=== PATIENT | male | born 1940 | race Caucasian/White ===

== ENCOUNTER 2021-09-02 09:58 | Emergency (ER) | payer OTHER ==
--- OUTSIDE RECORDS SUMMARY | 2021-09-02 10:01 | XMS REPORT | Continuity of Care Document ---
:1950 Author Organization [facility] t Address [address] [place] [address] Care Team Providers Name Role Phone Amira Copeland PA-C Attending Clinician Payers Payer Name Policy Type Policy Number Effective Date Expiration Date S fred MEDICARE PART A [id number] 2010 00:00:00 [facility] [id number] 2005 [facility] 00:00:00 Problems This patient has no known problems. Allergies, Adverse Reactions, Alerts Allergy Allergy Status Severity Reaction(s) Onset Inactive Treating Comm ents Source Name Type Date Date Clinician NO KNOWN Drug Active [facility] ALLERGIE Class [facility] Medications This patient has no known medications. Procedures This patient has no known procedures. Encounters Start End Encounter Admission Attending Care Care Encounter Source Date/Time Date/Time Type Type Clinicians Facility Department ID 2021-04-16 2021-04-16 Emergency X [facility] ERT [id number] 03 [facility] 09:01:00 09:01:00 [facility] 2019-12-21 2019-12-21 Telephone MARTHA Copeland [id number] 00:00:00 00:00:00 Mamie Amira [facility] [id number] [facility] [id number] [facility] [id number] [facility] [address] Results This patient has no known results.
--- NOTE | 2021-09-02 11:12 | RAD REPORT ---
EXAM DESCRIPTION: CT - Head Brain Wo Cont - 09/02/2021 10:50 am CLINICAL HISTORY: Alteration of awareness/confusion COMPARISON: None TECHNIQUE: Computed axial tomography of the head was obtained. IV contrast was not requested. All CT scans are performed using dose optimization technique as appropriate and may include automated exposure control or mA/KV adjustment according to patient size. FINDINGS: Right frontal scalp swelling. An intracranial bleed is not seen . Prominence of the ventricles. No extra-axial fluid collection is noted. Mild to moderate low-density areas within periventricular, deep and subcortical white matter may be s econdary to ischemic changes secondary to small vessel disease. Fluid within the sinuses/ mastoids is not seen. IMPRESSION: Prominence of the ventricles may be related to atrophy. Normal pressure hydrocephalus ca n also have this appearance should be correlated clinically. .
--- NOTE | 2021-09-02 11:15 | RAD REPORT ---
EXAM DESCRIPTION: CT - Facial Bones W/ Mpr - 09/02/2021 10:50 am CLINICAL HISTORY: Facial injury status post fall. Facial pain COMPARISON: None TECHNIQUE: Computed axial tomography of the face was obtained. Coronal and sagittal reconstruction w as performed. All CT scans are performed using dose optimization technique as appropriate and may include automated exposure control or mA/KV adjustment according to patient size. FINDINGS: Right frontal scalp swelling A fracture is not seen. A TMJ dislocation is not noted. The globes are intact. Fluid within the sinuses is not seen. IMPRESSION: Negative for a facial fracture.
--- NOTE | 2021-09-02 11:58 | RAD REPORT ---
EXAM DESCRIPTION: RAD - Knee Right 2 View - 09/02/2021 10:57 am CLINICAL HISTORY: Left knee pain FINDINGS: No fracture or dislocation is seen. Limited two view series obtained. If patient continues have symptoms to suggest an occult fracture, ligamentous or meniscal injury MRI would be recommended
--- NOTE | 2021-09-02 11:59 | ER ---
Nurse's Notes [facility] Name: Eriberto Feliciano Jr Age: 81 yrs Sex: Male : 1940 Arrival Date: 09/02/2021 Time: 10:02 Bed 8 Private MD: Diagnosis: Forehead hematoma, closed head injury, knee abrasion right Presentation: 09/02 10:03 Chief complaint: Patient states: pt walking to return cart, tripped and fell. pt alert jh6 oriented x3. swelling and hematoma to rt temporal area and bottom of rt orbit. No bleeding noted to wounds. Pain to rt knee with small amount of abrasions. Coronavirus screen: Client denies travel out of the [place] in the last 14 days. At this time, the client does not indicate any symptoms associated with coronavirus-19. Ebola Screen: Patient negative for fever greater than or equal to 101.5 degrees Fahrenheit, and additional compatible Ebola Virus Disease symptoms No symptoms or risks identified at this time. Initial Sepsis Screen: Does the patient meet any 2 criteria? No. Patient's initial sepsis screen is negative. Does the patient have a suspected source of infection? No. Patient's initial sepsis screen is negative. Risk Assessment: Do you want to hurt yourself or someone else? Patient reports no desire to harm self or others. Onset of symptoms was September 02, 2021. 10:03 Method Of Arrival: EMS: [place] [facility] 10:03 Acuity: EMMANUELLE 2 [facility] Historical: - Allergies: 10:08 No Known Allergies; [facility] - PMHx: 10:08 Diabetes mellitus; [facility] - Immunization history:: Adult Immunizations up to date, Client reports having NOT received the Covid vaccine. - Social history:: Smoking status: Patient/guardian denies using tobacco, the patient reports quitting approximately 35 years ago. Screenin:10 Abuse screen: Denies threats or abuse. Nutritional screening: No deficits noted. [facility] Tuberculosis screening: No symptoms or risk factors identified. Fall Risk Secondary diagnosis (15 points) recent fall. Assessment: 10:08 Pain: Denies pain. Complains of pain in right knee Pain currently is 2 out of 10 on a [facility] pain scale. Quality of pain is described as burning. 11:20 Reassessment: Patient and/or family updated on plan of care and expected duration. Pain jh6 level reassessed. Patient is alert, oriented x 3, equal unlabored respirations, skin warm/dry/pink. Patient denies pain at this time. Patient states feeling better. 12:16 Reassessment: Patient appears in no apparent distress at this time. Patient and/or tw2 family updated on plan of care and expected duration. Pain level reassessed. Patient is alert, oriented x 3, equal unlabored respirations, skin warm/dry/pink. Vital Signs: 10:03 BP 180 / 108; Pulse 73; Resp 17; Temp 97.6(T); Pulse Ox 96% on R/A; Weight 72.57 kg; jh6 Height 5 ft. 11 in. (180.34 cm); Pain 3/10; 11:00 BP 163 / 79; Pulse 71; Resp 17; Pulse Ox 96% ; Pain 2/10; jh6 11:57 BP 180 / 77; Pulse 64; Resp 17; Pulse Ox 97% on R/A; tw2 10:03 Body Mass Index 22.32 (72.57 kg, 180.34 cm) [place] Coma Score: 10:20 Eye Response: spontaneous(4). Verbal Response: oriented(5). Motor Response: obeys [facility] commands(6). Total: 15. ED Course: 10:02 Patient arrived in ED. jh6 10:02 Bed in low position. Call light in reach. Side rails up X2. monitor and storage bin tender on. Pulse tw2 ox on. NIBP on. 10:04 Rigoberto Rivers MD is Attending Physician. sp3 10:07 Triage completed. jh6 10:07 No provider procedures requiring assistance completed. X-ray(s) taken. Inserted saline jh6 lock: 20 gauge in left antecubital area, using aseptic technique. iv started correctional officer captain by ems. 10:27 Simi Jaquez, DHARA is Primary Nurse. jh6 10:27 Knee Right 2 View XRAY Sent. jh6 10:27 CT Head Brain wo Cont Sent. jh6 10:33 Arm band placed on. tw2 10:50 Facial Bones W/ Mpr In Process Unspecified. EDMS 10:50 CT Head Brain wo Cont In Process Unspecified. EDMS 10:57 Knee Right 2 View XRAY In Process Unspecified. EDMS 12:16 IV discontinued, intact, bleeding controlled, No redness/swelling at site. Pressure tw2 dressing applied. Administered Medications: No medications were administered Outcome: 11:58 Discharge ordered by . sp3 12:16 Discharged to home via wheelchair. tw2 12:16 Condition: stable 12:16 Discharge instructions given to patient, Instructed on discharge instructions, follow up and referral plans. Demonstrated understanding of instructions, follow-up care. 12:16 Patient left the ED. tw2 Signatures: Dispatcher [employer] EDMS Balbina Licona RN RN tw2 Rigoberto Rivers MD MD sp3 Simi Jaquez RN RN jh6 Corrections: (The following items were deleted from the chart) 10:35 10:27 To radiology for Maxillofacial W/Wo+CT.RAD.VANI. jh6 ED
--- NOTE | 2021-09-02 11:59 | EDPHYS ---
Physician Documentation [facility] Name: Eriberto Feliciano Jr Age: 81 yrs Sex: Male : 1940 Arrival Date: 09/02/2021 Time: 10:02 Bed 8 Private MD: ED Physician Rigoberto Rivers HPI: 09/02 10:42 This 81 yrs old Male presents to ER via EMS with complaints of Head injury. sp3 10:47 81-year-old male with history of diabetes presents with a ground-level mechanical fall sp3 secondary to "slipping" in the parking lot while returning his car. Patient denies LOC but does have injury to the right forehead and lateral face. Patient also fell on his right knee and has abrasions there. Patient denies neck pain, chest pain, back pain, shortness of breath, nausea, vomiting, diarrhea, other extremity pain other than his right knee, any other ROS at this time. Patient is on no blood thinners.. Historical: - Allergies: 10:08 No Known Allergies; jh6 - PMHx: 10:08 Diabetes mellitus; [facility] - Immunization history:: Adult Immunizations up to date, Client reports having NOT received the Covid vaccine. - Social history:: Smoking status: Patient/guardian denies using tobacco, the patient reports quitting approximately 35 years ago. ROS: 10:48 Constitutional: Negative for fever, chills, and weight loss, Eyes: Negative for injury, sp3 pain, redness, and discharge, ENT: Negative for injury, pain, and discharge, Neck: Negative for injury, pain, and swelling, Cardiovascular: Negative for chest pain, palpitations, and edema, Respiratory: Negative for shortness of breath, cough, wheezing, and pleuritic chest pain, Back: Negative for injury and pain, MS/Extremity: Negative for injury and deformity, Skin: Negative for injury, rash, and discoloration, Neuro: Negative for headache, weakness, numbness, tingling, and seizure, Psych: Negative for depression, anxiety, suicide ideation, homicidal ideation, and hallucinations. 10:48 All other systems are negative. Exam: 10:50 Constitutional: This is a well developed, well nourished patient who is awake, alert, sp3 and in no acute distress. Eyes: Pupils equal round and reactive to light, extra-ocular motions intact. Lids and lashes normal. Conjunctiva and sclera are non-icteric and not injected. Cornea within normal limits. Periorbital areas with no swelling, redness, or edema. ENT: Nares patent. No nasal discharge, no septal abnormalities noted. External auditory canals are clear. Oropharynx with no redness, swelling, or masses, exudates, or evidence of obstruction, uvula midline. Mucous membranes moist. Neck: Trachea midline, no thyromegaly or masses palpated, and no cervical lymphadenopathy. Supple, full range of motion without nuchal rigidity, or vertebral point tenderness. No Meningismus. Chest/axilla: Normal chest wall appearance and motion. Nontender with no deformity. No lesions are appreciated. Cardiovascular: Regular rate and rhythm with a normal S1 and S2. No gallops, murmurs, or rubs. Normal PMI, no JVD. No pulse deficits. Respiratory: Lungs have equal breath sounds bilaterally, clear to auscultation and percussion. No rales, rhonchi or wheezes noted. No increased work of breathing, no retractions or nasal flaring. Abdomen/GI: Soft, non-tender, with normal bowel sounds. No distension or tympany. No guarding or rebound. No evidence of tenderness throughout. Back: No spinal tenderness. No costovertebral tenderness. Full range of motion. Skin: Warm, dry with normal turgor. Normal color with no rashes, no lesions, and no evidence of cellulitis. Neuro: Awake and alert, GCS 15, oriented to person, place, time, and situation. Cranial nerves II-XII grossly intact. Motor strength 5/5 in all extremities. Sensory grossly intact. Cerebellar exam normal. Normal gait. Psych: Awake, alert, with orientation to person, place and time. Behavior, mood, and affect are within normal limits. 10:50 Head/face: Patient has 2 cm x 2 cm hematoma with surface abrasion on the right tenriism area of his forehead as well as abrasions extending inferiorly next the lateral canthus of the right eye. Extraocular movements are intact, there is no eye hyphema, or surrounding injury within the orbit itself.. 10:50 Musculoskeletal/extremity: There is abrasion over the right patella and pain to the lateral joint. Full range of motion is present.. Vital Signs: 10:03 BP 180 / 108; Pulse 73; Resp 17; Temp 97.6(T); Pulse Ox 96% on R/A; Weight 72.57 kg; 6 Height 5 ft. 11 in. (180.34 cm); Pain 3/10; 11:00 BP 163 / 79; Pulse 71; Resp 17; Pulse Ox 96% ; Pain 2/10; jh6 11:57 BP 180 / 77; Pulse 64; Resp 17; Pulse Ox 97% on R/A; tw2 10:03 Body Mass Index 22.32 (72.57 kg, 180.34 cm) [facility] [place] Coma Score: 10:20 Eye Response: spontaneous(4). Verbal Response: oriented(5). Motor Response: obeys [facility] commands(6). Total: 15. MDM: 10:19 Patient medically screened. sp3 10:51 Data reviewed: vital signs, nurses notes. ED course: 81-year-old male with ground-level sp3 mechanical fall with head injury and right knee injury. Will obtain CT scans of the head and maxillofacial area as well as an x-ray of the right knee. Discharged home with negative with PCP follow-up.. 11:57 ED course: CT scan of the head and facial bones are negative as read by the sp3 radiologist. Knee x-ray is reviewed by me and demonstrates no fracture or effusion. Will discharge patient home at this time.. 12 10:19 Order name: CT Head Brain wo Cont; Complete Time: 11:55 sp3 09/02 10:19 Order name: Knee Right 2 View XRAY sp3 09/02 10:35 Order name: Facial Bones W/ Mpr; Complete Time: 11:55 EDMS Administered Medications: No medications were administered Disposition Summary: 09/02/21 11:58 Discharge Ordered Location: Home sp3 Condition: Stable sp3 Diagnosis - Forehead hematoma, closed head injury, knee abrasion right sp3 Followup: sp3 - With: Private Physician - When: - Reason: Recheck today's complaints Discharge Instructions: - Discharge Summary Sheet sp3 - Head Injury, Adult sp3 Forms: - Medication Reconciliation Form sp3 - Thank You Letter sp3 - Antibiotic Education sp3 - Prescription Opioid Use sp3 Signatures: Dispatcher [employer] EDMS Rigoberto Rivers MD MD sp3 Simi Jaquez RN RN jh6 Corrections: (The following items were deleted from the chart) 10:35 10:20 Maxillofacial W/Wo+CT.RAD.YONIZ ordered. EDMS EDMS
[2021-09-02 12:43] VITALS: TEMP 97.6
[2021-09-02 12:44] VITALS: BP 180/77; O2SAT 97
== END 2021-09-02 12:16 | disposition home or self-care (01) ==
LOC: EDBD 09:58 → ER 09:58
DX: S00.81XA Abrasion of other part of head, initial encounter (principal); S80.211A Abrasion, right knee, initial encounter; W01.0XXA Fall on same level from slipping, tripping and stumbling without subsequent striking against object, initial encounter; Y92.481 Parking lot as the place of occurrence of the external cause
CPT/HCPCS: 70450; 70486; 76377; 93005; 99284

== ENCOUNTER 2023-07-10 19:49 | Inpatient (IN) | payer OTHER ==
--- OUTSIDE RECORDS SUMMARY | 2023-07-10 19:54 | XMS REPORT | Continuity of Care Document ---
:[address] [facility] t Address [address] [facility] [facility] [address] [place] [address] Care Team Providers Name Role Phone None, None Primary Care Physician Unavailable THEODORA LYNN Attending Clinician Unavailable Cholo Holm MD Attending Clinician Lisha Rojo Attending Clinician CHOLO HOLM Attending Clinician Unavailable Mary Jo Michele RN Attending Clinician Unavailable BENTON ASHLEY Attending Clinician Unavailable Dontae Grimes MD Attending Clinician Benton Ashley MD Attending Clinician Jayce Vargas MD Attending Clinician Wm Boswell MD Attending Clinician Mamie Copeland PA-C Attending Clinician SHILA OCHOA Attending Clinician Unavailable JAYCE VARGAS Admitting Clinician Unavailable SHILA OCHOA Admitting Clinician Unavailable Payers Payer Name Policy Type Policy Number Effective Date Expiration Date S fred [facility] [id number] 2022 PLAN-CHRISTUS 00:00:00 [facility] UNIFORM [id number] 2005 SVCS 00:00:00 Problems Condition Condition Condition Status Onset Resolution Last Treating Co mments Source Name Details Category Date Date Treatment Clinician Date E46 E46 Disease Active Univers Unspecifie Unspecifie 8-23 it y of d severe d severe 00:00: [place] protein-ca protein-ca 00 Me dical tor tor Branch malnutriti malnutriti on on Dysphagia Dysphagia Disease Active Uni vers 8- ity of 00:00: Medical Branch Vomiting, Vomiting, Disease Active Uni vers unspecifie unspecifie 8-21 [place] y of d vomiting d [place] type, type, 00 Medical unspecifie unspecifie Br anch d whether d whether nausea nausea present present Esophageal Esophageal Disease Active U nivers mass mass 8- ity of 00:00: [place] 00 Medical Branch PAD PAD Disease Active [place] (periphera (periphera 6-23 He alth l artery l artery 00:00: disease) disease) 00 E44.1 Mild 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 2019-0 U singhers protein-ca protein-ca 1-06 it y of tor lentz 00:00: [place] malnutriti malnutriti 00 Me dical on on Branch Left-sided Left-sided Disease Active 2019-0 U silviano weakness weakness 1-05 ity of 00:00: [place] 00 Medical Branch 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 00:00: Hospita 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 without y without macular macular edema edema associated associated with type with type 2 diabetes 2 diabetes mellitus mellitus Microalbum Microalbum Disease Active 2015-09 M ethodi inuria inuria 2- st 00:00: Hospita 00 l CKD CKD Disease Active 2015-09 [facility] (chronic (chronic 2 kidney kidney 00:00: Hospita disease) disease) 00 l stage 3, stage 3, GFR 30-59 GFR 30-59 ml/min ml/min Type 2 Type 2 Disease Active Methodi diabetes diabetes 8-24 st mellitus mellitus 00:00: Hospit a without without 00 l complicati complicati on on Allergies, Adverse Reactions, Alerts Allergy Allergy Status Severity Reaction(s) Onset Inactive Treating Comm ents Source Name Type Date Date Clinician NO KNOWN Drug Active Univers ALLERGIE Class ity of S [facility] Family History Family Member Diagnosis Comments Start Date Stop Date Source Natural brother [facility] Natural father Hy[facility] Natural mother Emphysema [facility] Social History Social Habit Start Date Stop Date Quantity Comments Source History of tobacco Passive smoker Un iversity of use [facility] Gender identity [facility] Sexual orientation [facility] Tobacco use and 2023-05-16 2023-05-16 Smokeless Universit y of exposure 00:00:00 00:00:00 tobacco non-user [facility] History of Social 2017-03-14 2017-03-[address] function 00:00:00 00:00:00 Hospital Alcohol intake 2016-10-26 2016-10-26 Current [facility] 00:00:00 00:00:00 non-drinker of Hospital alcohol (finding) Cigarettes smoked 2016-05-19 2016-05-[address] current (pack per 00:00:00 00:00:00 Hospita l day) - Reported Cigarette 2016-05-19 2016-05-19 [facility] pack-years 00:00:00 00:00:00 Hospital Sex Ass[birth year] At [birth year] [facility] 00:00:00 00:00:00 Hospital Smoking Status Start Date Stop Date Source Ex-smoker 2023-05-16 00:00:00 2023-05-16 00:00:00 Universi ty [facility] Never smoked tobacco [facility] Health Medications Ordered Filled Start Stop Current Ordering Indication Dosage Frequency Signature Comments Components Source Medication Medication Date Date Medication? Clinician (SIG) Name Name magnesium 2022- No 2g 2 g, IV Univ ers sulfate in 05-19 Piggyback, it y of water 2 01:00: 02:25 Administer Mannie as gram/50 mL 00 :00 over 60 Medica l (4 %) Minutes, Branch infusion 2 ONCE, 1 g dose, On Tue05/18/23 at 2000, Routine ondansetron 2022- Yes [id number] 4mg Take 1 Univers 4 mg 05-19 tablet by ity of disintegrat 00:00: 04:59 [place] tablet 00 :00 every 8 Medica l (eight) Branch hours as needed for Nausea and Vomiting (N/V) for up to 10 days. ondansetron 3-0 2023- Yes [id number] 4mg Take 1 Univers 4 mg -19 06- tablet by ity of disintegrat 00:00: 04:59 [place] tablet 00 :00 every 8 Medica l (eight) Branch hours as needed for Nausea and Vomiting (N/V) for up to 10 days. ondansetron 3-0 2023- Yes [id number] 4mg Take 1 Univers 4 mg 05-19- tablet by ity of disintegrat 00:00: 04:59 [place] tablet 00 :00 every 8 Medica l (eight) Branch hours as needed for Nausea and Vomiting (N/V) for up to 10 days. ondansetron 2022-0 2022- Yes [id number] 4mg Take 1 Univers 4 mg 05-19- tablet by ity of disintegrat 00:00: 04:59 [place] tablet 00 :00 every 8 Medica l (eight) Branch hours as needed for Nausea and Vomiting (N/V) for up to 10 days. sitagliptin 2022-0 2022- No Take by Un diya crocker/metalecia 05-18 mouth. ity o f min HCl 16:41: 00:00 [place] (JANUMET 07 :00 Medical ORAL) Branch magnesium 2022-0 2022- No 4g 4 g, IV Univ ers sulfate in 05-18 Piggyback, it y of water 4 14:15: 15:45 at 25 [place] gram/50 mL 00 :00 mL/hr Medical (8 %) IV Administer Branc h Piggyback 4 over 120 g Minutes, ONCE, 1 dose, On Tue05/18/23 at 0915, Routine pantoprazol 2023-0 Yes 40mg 40 mg, Univ ers e 05-18 Slow IV ity of (PROTONIX) 13:00: Push, [place] injection 00 Q12H, Medical 40 mg First dose Branch on Tue05/18/23 at 0800, Until Discontinu ed pantoprazol 2023-0 Yes 40mg 40 mg, Univ ers e 05-18 Slow IV ity of (PROTONIX) 13:00: Push, [place] injection 00 Q12H, Medical 40 mg First dose Branch on Tue05/18/23 at 0800, Until Discontinu ed water for 2022- No PRN, Univers irrigation 05-17 Starting ity of irrigation 17:56: 19:39 on Tue [place] solution 00 :05 05/17/23 at Medic al 1256, Branch Until Tue05/17/23 at 1439, Routine, Intra-op simethicone 0 2022- No PRN, Unive rs (GAS RELIEF 05-17 Starting ity of (SIMETHICON 17:56: 19:39 on Tue Mannie as E)) 40 00 :05 05/17/23 at Medical mg/0.6 mL 1256, Branch drops Until Tue05/17/23 at 1439, Routine, Intra-op enoxaparin 2022-0 Yes 40mg 40 mg, Unive rs (LOVENOX) 05-17 Subcutaneo ity of injection 14:00: [place] 40 mg 00 First dose Medical on Tue Branch 05/17/23 at 0900, Until Discontinu ed, Routine enoxaparin 0 Yes 40mg 40 mg, Unive rs (LOVENOX) 05-17 Subcutaneo ity of injection 14:00: [place]ILY, [place] 40 mg 00 First dose Medical on Tue Branch 05/17/23 at 0900, Until Discontinu ed, Routine D5W 0.45% 0 Yes Intravenou Un diya NaCl 8- s, at 100 ity of (1/2NS) 1 L 03:45: mL/hr, [place] + KCL 20 00 CONTINUOUS Medic al mEq , Starting Branch on Tue05/16/23 at 2245, Until Discontinu ed, RAMON D5W 0.45% 0 Yes Intravenou Un diya NaCl 8- s, at 100 ity of (1/2NS) 1 L 03:45: mL/hr, [place] + KCL 20 00 CONTINUOUS Medic al mEq , Starting Branch on Tue05/16/23 at 2245, Until Discontinu ed, RAMON ondansetron 0 Yes 4mg 4 mg, Slow Univers (ZOFRAN 05-17 IV Push, ity of (PF)) 03:34: Q6HPRN, [place] injection 4 28 Starting Medi jennifer mg on Tue Branch 05/16/23 at 2234, Until Discontinu ed, Routine, Nausea and Vomiting (N/V) ondansetron 2022-0 Yes 4mg 4 mg, Slow Univers (ZOFRAN 05-17 IV Push, ity of (PF)) 03:34: Q6HPRN, [place] injection 4 28 Starting Medi jennifer mg on Tue Branch 05/16/23 at 2234, Until Discontinu ed, Routine, Nausea and Vomiting (N/V) acetaminoph 2022-0 Yes 650mg 650 mg, Un diya en 05-17 Oral, ity of (TYLENOL) 03:34: Q6HPRN, [place] tablet 650 07 Starting Medic al mg on Tue Branch 05/16/23 at 2234, Until Discontinu ed, Routine, Pain (scale 1-3), Temp > 38 C acetaminoph 2022-0 Yes 650mg 650 mg, Un diya en 05-17 Oral, ity of (TYLENOL) 03:34: Q6HPRN, [place] tablet 650 07 Starting Medic al mg on Tue Branch 05/16/23 at 2234, Until Discontinu ed, Routine, Pain (scale 1-3), Temp > 38 C NaCl 0.9% 2022- No 1000mL at 999 Uni vers (NS) bolus 05-17 mL/hr, ity of infusion 00:15: 00:48 1,000 mL, Mannie as 1,000 mL 00 :00 IV Medical Infusion, Branch ONCE, 1 dose, On Tue05/16/23 at 1915, RAMON sitagliptin 2022- No Take by Un diya phos/metfor 05-16 mouth. ity o f min HCl 23:14: 00:00 [place] (JANUMET 51 :00 Medical ORAL) Branch amLODIPine 2022- No [id number] 10mg Take 1 Univers 10 mg 10-03 4100 tablet by ity of tablet 00:00: 00:00 mouth [place] 00 :00 daily. Medical Branch aspirin 81 2022- No [id number] 81mg Take 1 Univers mg chewable 10-03 4100 tablet by it y of tablet 00:00: 00:00 mouth [place] 00 :00 daily. Medical Branch atorvastati 2022- No [id number] 80mg Take 1 Univers n 80 mg 10-03 4100 tablet by ity of tablet 00:00: 00:00 mouth at [place] 00 :00 bedtime. Medical Branch amLODIPine 2022- No [id number] 10mg Take 1 Univers 10 mg 10-03 4100 tablet by ity of tablet 00:00: 00:00 mouth [place] 00 :00 daily. Medical Branch aspirin 81 2022- No [id number] 81mg Take 1 Univers mg chewable 10-03 4100 tablet by it y of tablet 00:00: 00:00 mouth [place] 00 :00 daily. Medical Branch atorvastati 2022- No [id number] 80mg Take 1 Univers n 80 mg 10-03 4100 tablet by ity of tablet 00:00: 00:00 mouth at [place] 00 :00 bedtime. Medical Branch sitaGLIPtin Yes 1{tbl} Q.5D Take 1 Me thodi -metformin 3-[address] () 00:00: mouth 2 Hospi ta 50-500 mg 00 (two) l per tablet times a day with meals. Immunizations Ordered Filled Date Status Comments Source Immunization Name Immunization Name Influenza High Dose 2019-10-03 Completed Unive rsity of 00:00:00 [facility] Influenza High Dose 2019-10-03 Completed Unive rsity of 00:00:00 [facility] Influenza High Dose 2019-10-03 Completed Unive rsity of 00:00:00 [facility] Influenza High Dose 2019-10-03 Completed Unive rsity of 00:00:00 [facility] Influenza High Dose 2019-10-03 Completed Unive rsity of 00:00:00 [facility] Influenza High Dose Unknown Completed Unive rsity of [facility] Influenza High Dose Unknown Completed Unive rsity of [facility] Influenza High Dose Unknown Completed Unive rsity of [facility] Influenza High Dose Unknown Completed Unive rsity of [facility] Pneumococcal Unknown Completed [facility] Conjugate [facility] promise Vital Signs Vital Name Observation Time Observation Value Comments Source Systolic blood 2023-05-26 17:10:00 108 mm[Hg] Univer sity of pressure [place] [facility] Diastolic blood 2023-05-26 17:10:00 66 mm[Hg] Unive rsity of pressure [place] [facility] Heart rate 2023-05-26 17:10:00 76 /min Universi ty of [place] [facility] Body temperature 2023-05-26 17:10:00 36.61 Meryl Univ ersity of [place] [facility] Respiratory rate 2023-05-26 17:10:00 18 /min Univ ersity of [place] [facility] Body height 2023-05-26 17:10:00 180.3 cm Universi ty [facility] [place] [facility] Body weight 2023-05-26 17:10:00 55.43 kg Universi ty of [place] [facility] BMI 2023-05-26 17:10:00 17.04 kg/m2 Universi ty of [place] [facility] Oxygen saturation in 2023-05-26 17:10:00 96 /min University of Arterial blood by [facility] Pulse oximetry Branch Systolic blood 2023-05-19 12:22:00 130 mm[Hg] Univer sity of pressure [place] [facility] Diastolic blood 2023-05-19 12:22:00 76 mm[Hg] Unive rsity of pressure [place] [facility] Heart rate 2023-05-19 12:22:00 62 /min Universi ty of [place] [facility] Body temperature 2023-05-19 12:22:00 36.11 Meryl Univ ersity of [place] [facility] Respiratory rate 2023-05-19 12:22:00 16 /min Univ ersity of [place] [facility] Oxygen saturation in 2023-05-19 12:22:00 96 /min University of Arterial blood by [facility] Pulse oximetry Branch Body weight 2023-05-19 08:48:00 58.968 kg Universi ty of [place] [facility] BMI 2023-05-19 08:48:00 18.13 kg/m2 [facility]i ty [facility] [place] [facility] Body height 2023-05-17 04:17:00 180.3 cm [facility]i ty [facility] [place] [facility] Systolic blood 2023-05-17 19:16:00 154 mm[Hg] Univer sity of pressure [place] [facility] Diastolic blood 2023-05-17 19:16:00 58 mm[Hg] Unive rsity of pressure [place] [facility] Respiratory rate 2023-05-17 19:16:00 23 /min [facility] Oxygen saturation in 2023-05-17 19:16:00 99 /min [facility] Arterial blood by [facility] Pulse oximetry [place] Heart rate 2023-05-17 19:10:00 54 /min [facility] Body temperature 2023-05-17 16:17:00 36.67 Meryl [facility] Body height 2023-05-17 04:17:00 180.3 cm [facility] Body weight 2023-05-17 04:17:00 54.477 kg [facility] BMI 2023-05-17 04:17:00 17.82 kg/m2 [facility] Procedures Procedure Date / Time Performing Source Performed Clinician POCT GLUCOSE (AUTOMATED) 2023-05-19 [facility] PHOSPHORUS 2023-05-19 [facility] 10:41:00 [facility] MAGNESIUM 2023-05-19 Ciro [facility] 10:41:00 [facility] BASIC METABOLIC PANEL (NA, K, CL, 2023-05-19 Ciro [facility] of CO2, GLUCOSE, BUN, CREATININE, CA) 10:41:00 [facility] PHOSPHORUS 2023-05-18 [facility] 11:35:00 [facility] MAGNESIUM 2023-05-18 [facility] 11:35:00 [facility] BASIC METABOLIC PANEL (NA, K, CL, 2023-05-18 Ciro [facility] of CO2, GLUCOSE, BUN, CREATININE, CA) 11:35:00 [facility] PHOSPHORUS 2023-05-18 [facility] of 11:35:00 [facility] MAGNESIUM 2023-05-18 [facility] 11:35:00 [facility] BASIC METABOLIC PANEL (NA, K, CL, 2023-05-18 Ciro [facility] of CO2, GLUCOSE, BUN, CREATININE, CA) 11:35:00 [facility] C-REACTIVE PROTEIN 2023-05-18 [facility] of 08:28:00 [facility] CBC WITH DIFF 2023-05-18 Marlene Tanner [place] of 08:28:00 [facility] CBC WITH DIFF 2023-05-18 Ciro [facility] of 08:28:00 [facility] CT THORAX WO CONTRAST 2023-05-18 [facility] of 01:10:[address] [facility] [address] THORAX WO CONTRAST 2023-05-18 [facility] of 01:10:00 [facility] ESOPHAGOGASTRODUODENOSCOPY 2023-05-17 Rani [facility] rsity of 18:02:00 [facility] ESOPHAGOGASTRODUODENOSCOPY 2023-05-17 [facility] rsity of 18:02:00 [facility] EGD (ENDO) 2023-05-17 [facility] of 17:44:36 [facility] EGD (ENDO) 2023-05-17 [facility] of 17:44:36 Ciro [facility] URINALYSIS 2023-05-17 Dontae Grimes of 02:31:00 [facility] URINALYSIS 2023-05-17 Dontae Grimes [place] of 02:31:[address] [facility] [address] ABDOMEN PELVIS WO CONTRAST 2023-05-17 Dontae Grimes iversity of 01:11:[address] [facility] [address] ABDOMEN PELVIS WO CONTRAST 2023-05-17 Dontae Grimes iversity of 01:11:40 [facility] XR CHEST 1 VW 2023-05-17 Dontae Grimes of 01:05:10 [facility] XR CHEST 1 VW 2023-05-17 Dontae Grimes of 01:05:10 [facility] ABORH CONFIRMATION (LAB ONLY) 2023-05-17 Dontae Grimes iversity of 00:44:00 [facility] ABORH CONFIRMATION (LAB ONLY) 2023-05-17 Dontae Grimes iversity of 00:44:00 [facility] HB ECG ROUTINE & RHYTHM STRIP 2023-05-17 Dontae Grimes iversity of 00:02:05 [facility] HB ECG ROUTINE & RHYTHM STRIP 2023-05-17 Dontae Grimes iversity of 00:02:05 [facility] AC PANEL 21 + LACTIC ACID 2023-05-16 [facility] 23:34:00 [facility] AC PANEL 21 + LACTIC ACID 2023-05-16 Dontae Grimes sity of 23:34:00 [facility] LIPASE 2023-05-16 Dontae Grimes of 23:33:00 [facility] TROPONIN I 2023-05-16 Dontae Grimes of 23:33:00 [facility] COMP. METABOLIC PANEL (34717) 2023-05-16 Dontae Grimes Un iversity of 23:33:00 [facility] CBC WITH DIFF 2023-05-16 Dontae Grimes of 23:33:00 [facility] PROTHROMBIN TIME / INR 2023-05-16 Dontae Grimes Universit y of 23:33:00 [facility] ACTIVATED PARTIAL THRMPLAS GREGG 2023-05-16 Dontae Grimes U niversity of 23:33:00 [facility] HB ABO GROUPING 2023-05-16 Dontae Grimes of 23:33:00 [facility] N-TERMINAL PRO-BNP 2023-05-16 Dontae Grimes of 23:33:00 [facility] LIPASE 2023-05-16 Dontae Grimes of 23:33:00 [facility] TROPONIN I 2023-05-16 Dontae Grimes of 23:33:00 [facility] COMP. METABOLIC PANEL ([id number]) 2023-05-16 Dontae Grimes Un iversity of 23:33:00 [facility] CBC WITH DIFF 2023-05-16 Dontae Grimes of 23:33:00 [facility] PROTHROMBIN TIME / INR 2023-05-16 Dontae Grimesit y of 23:33:00 [facility] ACTIVATED PARTIAL THRMPLAS GREGG 2023-05-16 Dontae Grimes U niversity of 23:33:00 [facility] HB ABO GROUPING 2023-05-16 Dontae Grimes of 23:33:00 [facility] N-TERMINAL PRO-BNP 2023-05-16 oDntae Grimes of 23:33:00 [facility] Plan of Care Planned Activity Planned Date Details Comments Source Future Scheduled 2023-07-10 [facility] Test 19:52:48 malignant neoplasm of colon (procedure) [code = 525813298] Future Scheduled 2023-07-10 [facility] Test 19:52:48 malignant neoplasm of colon (procedure) [code = 183389928] Future Scheduled 2023-07-10 [facility] Test 19:52:48 malignant neoplasm of colon (procedure) [code = 237855730] Future Scheduled 2023-07-10 COVID-19 VACCINE (#1) Me [facility]ist Hospital Test 19:52:48 [code = COVID-19 VACCINE (#1)] Future Scheduled 2023-07-10 SHINGLES VACCINES ([address] [facility] Test 19:52:48 of 2) [code = SHINGLES VACCINES (1 of 2)] Future Scheduled 2023-07-10 RSV VACCINES > [address] [facility] Hospital Test 19:52:48 (1 - 1-dose 60+ series) [code = RSV VACCINES > 60 YR (1 - 1-dose 60+ series)] Future Scheduled 2023-07-10 65+ PNEUMOCOCCAL [facility] Test 19:52:48 VACCINE (2 - PPSV23 or PCV20) [code = 65+ PNEUMOCOCCAL VACCINE (2 - PPSV23 or PCV20)] Future Scheduled 2023-07-10 [facility] for [facility] Test 19:52:48 malignant neoplasm of colon (procedure) [code = 837152142] Future Scheduled 2023-07-10 [facility] Test 19:52:48 malignant neoplasm of colon (procedure) [code = 149236824] Future Scheduled 2023-07-10 INFLUENZA [facility]ACCINE (#[facility] 19:52:48 [code = INFLUENZA VACCINE (#1)] Encounters Start End Encounter Admission Attending Care Care Encounter Source Date/Time Date/Time Type Type Clinicians Facility Department ID 2023-03-21 Outpatient [facility] [id number] [place] 11:17:23 [id number] [facility] 2023-03-18 Outpatient [facility] [id number] [place] 11:01:14 [id number] [facility] 2023-03-04 Outpatient [facility] [id number] [place] 11:16:01 [id number] [facility] 2022-10-25 Outpatient [facility] [id number] [place] 13:59:43 [id number] [facility] 2023-07-05 2023-07-05 AKOSUA Velazquez [id number] [facility] 00:00:00 00:00:00 Cholo BUCKLEY [id number] i ty [facility] [id number] Mannie as [id number] [facility] 010 Branch 2023-07-04 2023-07-04 Telephone [facility] [id number] Univers 00:00:00 00:00:00 Cholo HOPE [id number] ity [facility] [id number] [place] PROFESS[place] [id number] [place] dical NAL 188 Branch [facility] 2023-06-21 2023-06-21 Outpatient R [facility] [id number] Univers 09:30:00 09:30:00 ity [facility] 2023-06-17 2023-06-17 Case AKOSUA Michelle [id number] Univers 00:00:00 00:00:00 Management Lisha BUCKLEY 350.1.13.10 ity [facility] [id number] Mannie as [id number] [facility] [address] [place] 2023-05-26 2023-05-26 [facility] [id number] Univers 11:15:00 12:30:14 [facility] 2023-05-26 2023-05-26 Office [facility] [id number] Univers 11:15:00 12:30:14 Visit Cholo HOPE 350.1.13.10 ity [facility] [id number] [place] PROFESS[place] [id number] [place] dical NAL 188 [facility] 2023-05-20 2023-05-20 Transition ROMAIN Michele [id number] Univers 00:00:00 00:00:00 of Care Mary Jo CERRATO 350.1.13.10 it y of [place].7.2.686 [place] [id number] [facility] 403 Branch 2023-05-16 2023-05-19 Inpatient X YEIMY [facility] [id number] Univers 18:12:00 10:50:00 [place] ity [facility] 2023-05-16 2023-05-19 [facility] Dontae Grimes [facility] [id number] Univers 18:12:00 10:50:00 Encounter Benton Ashley 350.1.13.10 ity of Jayce Vargas 4.2.7.2.686 [facility] [id number] Medi jennifer 081 Branch 2023-05-17 2023-05-17 Surgery Rani [facility] [id number] [facility] 13:55:00 14:21:00 Cholo HOPE 350.1.13.10 ity of IDARENATE 4.2.7.2.686 [facility] SURG[facility] [id number] [facility]20 Branch 2023-03-18 2023-03-21 Office RAMOS Boswell [facility] [id number] [place] 11:00:00 09:02:41 [facility] 350.1.13.58 [address] [id number] [id number] 2021-04-16 2021-04-16 Emergency X [facility] ERT [id number] Univers 09:01:00 09:01:00 [facility] 2019-12-21 2019-12-21 [facility] [id number] 00:00:00 00:00:00 Mamie Collier [employer] 350.1.13.10 Clear 4.2.7.2.686 Perez [id number] Medical [address] 2019-09-30 2019-10-03 Inpatient X GABRIELA SHILA [facility] SAIRA [id number] Univers 15:47:44 16:30:00 [facility] Results Test Description Test Time Test Comments Results Result Comments Source POCT GLUCOSE (AUTOMATED) 2023-05-19 12:47:47 Test Item Value Reference Range Interpretation Comme nts POCT GLU (test code = 1753647062) 111 mg/dL 70-110 H Lab Interpretation (test code = 41047-0) [facility] 11:43:54 Test Item Value Reference Range Interpretation Comments MAGNESIUM (test code = 7305732761) 2.2 mg/dL 1.7-2.4 Lab Interpretation (test code = Normal 28124-9) [facility] METABOLIC PANEL (NA, K, CL, CO2, GLUCOSE, BUN, CREATININE, CA)2023-05-19 11:43:34 Test Item Value Reference Range Interpretation Comments NA (test code = 135 mmol/L 135-145 9575231617) K (test code = 3.8 mmol/L 3.5-5.0 0378333549) CL (test code = 108 mmol/L 98-108 3507440699) CO2 TOTAL (test code = 22 mmol/L 23-31 L 9337184437) AGAP (test code = 5 2-16 7134417628) BUN (test code = 10 mg/dL 7-23 0204795896) GLUCOSE (test code = 94 mg/dL 70-110 7848439947) CREATININE (test code = 0.92 mg/dL 0.60-1.25 0480761491) CALCIUM (test code = 6.7 mg/dL 8.6-10.6 L 8889693610) eGFR (test code = 78.8 mL/min/1.73m2 5365725044) AFSHIN (test code = AFSHIN) [employer] of Glomerular Filtration Rate (GFR) and Staging of Kidney Disease* + --+ --+ ------+| GFR (mL/min/1.73 m2) ?| With Kidney Damage ?| ?Without Kidney Damage+ --------+ --------+ +| ?>90 ?| ?Stage one ?| ? Normal ?+ ---+ ---+ -------+| ?60-89 ?| ?Stage two ?| ? Decreased GFR ? + --+ --+ ------+| ?30-59 ?| ?Stage three ?| ? Stage three ? + --+ --+ ------+| ?15-29 ?| ?Stage four ? | ? Stage four ?+ ---+ ---+ -------+| ?<15 (or dialysis) ? ?| ?Stage five ? | ? Stage five ?+ ---+ ---+ -------+ *Each stage assumes the associated GFR level has been in effect for at least three months. ?Stages 1 to 5, with or without kidney disease, indicate chronic kidney disease. Notes: Determination of stages one and two (with eGFR >59mL/min/1.73 m2) requires estimation of kidney damage for at least three months as defined by structural or functional abnormalities of the kidney, manifested by either:Pathological abnormalities or Markers of kidney damage (including abnormalities in the composition of the blood or urine or abnormalities in imaging tests). Lab Interpretation Abnormal (test code = 47457-4) [facility]43[facility]14 Test Item Value Reference Range Interpretation Comments PHOSPHORUS (test code = 8616290481) 2.3 mg/dL 2.5-5.0 L Lab Interpretation (test code = Abnormal 85516-6) [facility] ([facility] Only)2023-05-17 01:06:00 Test Item Value Reference Range Interpretation Comments ABO & RH (test code = 20) A Negative [facility] Confirmation (Lab Only)2023-05-17 01:06:00 Test Item Value Reference Range Interpretation Comments ABO & RH (test code = 20) A Negative [facility] [id number] 00:17:28 Test Item Value Reference Range Interpretation Comments TROPONIN I (test code = 0.006 ng/mL <=0.034 7146943664) AFSHIN (test code = AFSHIN) Reference (Normal) Range (defined by the 99th percentile reference limit): <= 0.034 ng/mL Note: Cardiac troponin begins to rise 3-4 hours after the onset of ischemia. Repeat in 4-6 hours if the sample was drawn within 3-4 hours of the onset of the symptom and found normal. Diagnosis of myocardial injury is made with acute changes in cTn concentrations with at least one serial sample above the 99th percentile upper reference limit (URL), taken together with the patient's clinical presentation. Biotin has been reported to cause a negative bias, interpret results relative to patient's use of biotin. Lab Interpretation Normal (test code = 12057-5) [facility]TR[facility] [id number] 00:17:28 Test Item Value Reference Range Interpretation Comments TROPONIN I (test code = 0.006 ng/mL <=0.034 2575229916) AFSHIN (test code = AFSHIN) Reference (Normal) Range (defined by the 99th percentile reference limit): <= 0.034 ng/mL Note: Cardiac troponin begins to rise 3-4 hours after the onset of ischemia. Repeat in 4-6 hours if the sample was drawn within 3-4 hours of the onset of the symptom and found normal. Diagnosis of myocardial injury is made with acute changes in cTn concentrations with at least one serial sample above the 99th percentile upper reference limit (URL), taken together with the patient's clinical presentation. Biotin has been reported to cause a negative bias, interpret results relative to patient's use of biotin. Lab Interpretation Normal (test code = 26460-0) [facility]MINAL [id number] 00:14:51 Test Item Value Reference Range Interpretation Comments NT-proBNP (test code = 147 pg/mL <=125 29538-8) AFSHIN (test code = AFSHIN) Result Indeterminate-Consid er causes of NT-proBNP elevation other than Heart failure such as acute coronary syndrome, pulmonary embolism, pulmonary hypertension, sepsis, stroke, and renal dysfunction. Lab Interpretation (test Abnormal code = 23469-1) [facility]AL [id number] 00:14:51 Test Item Value Reference Range Interpretation Comments NT-proBNP (test code = 147 pg/mL <=125 48212-1) AFSHIN (test code = AFSHIN) Result Indeterminate-Consid er causes of NT-proBNP elevation other than Heart failure such as acute coronary syndrome, pulmonary embolism, pulmonary hypertension, sepsis, stroke, and renal dysfunction. Lab Interpretation (test Abnormal code = 36498-6) [facility] THRMPLAS [id number] 00:12:49 Test Item Value Reference Range Interpretation Comments APTT Patient (test 27 See_Comment [Automat ed code = 3173-2) message] The system which generated this result transmitted reference range : 23 - 38 Seconds . The reference range was not used to interpr et this result as normal/abnormal . AFSHIN (test code = AFSHIN) The [facility] patient population mean normal value for aPTT is 30 seconds. Lab Interpretation Normal (test code = 88624-1) [facility] TH[facility] [id number] 00:12:49 Test Item Value Reference Range Interpretation Comments APTT Patient (test 27 See_Comment [Automat ed code = 3173-2) message] The system which generated this result transmitted reference range : 23 - 38 Seconds . The reference range was not used to interpr et this result as normal/abnormal . AFSHIN (test code = AFSHIN) The [facility] patient population mean normal value for aPTT is 30 seconds. Lab Interpretation Normal (test code = 95855-8) [facility] CenterPROTHROMBIN TIME / [id number] 00:10:47 Test Item Value Reference Range Interpretation Comments PROTIME PATIENT (test 13.5 See_Comment [Auto mated message] code = 5964-2) The system [email or web address] generated this result transmitted ref erence range: 12.0 - 1 4.7 Seconds. The re ference range was not u sed to interpret this result as normal/abnor mal. INR (test code = 6301-6) 1.1 Nor mal INR <1.1; Warfarin Therap eutic range 2.0 to 3. 0 or 2.5 to 3.5, dep ending upon the indica tions. Lab Interpretation (test Normal code = 44010-5) [facility] CenterPROTHROMBIN TIME / [id number] 00:10:47 Test Item Value Reference Range Interpretation Comments PROTIME PATIENT (test 13.5 See_Comment [Auto mated message] code = 5964-2) The system [email or web address] generated this result transmitted ref erence range: 12.0 - 1 4.7 Seconds. The re ference range was not u sed to interpret this result as normal/abnor mal. INR (test code = 6301-6) 1.1 Nor mal INR <1.1; Warfarin Therap eutic range 2.0 to 3. 0 or 2.5 to 3.5, dep ending upon the indica tions. Lab Interpretation (test Normal code = 69128-2) [facility] CenterCOM. METABOLIC PANEL (63315)2023-05-17 00:07:09 Test Item Value Reference Range Interpretation Comments NA (test code = 138 mmol/L 135-145 3651679919) K (test code = 4.2 mmol/L 3.5-5.0 3222680091) CL (test code = 104 mmol/L 98-108 9672013815) CO2 TOTAL (test code = 25 mmol/L 23-31 9220869363) AGAP (test code = 9 2-16 6363321740) BUN (test code = 31 mg/dL 7-23 H 0310056754) GLUCOSE (test code = 110 mg/dL 70-110 6623591846) CREATININE (test code = 1.70 mg/dL 0.60-1.25 H 6876521760) TOTAL BILI (test code = 1.7 mg/dL 0.1-1.1 H 8038020211) CALCIUM (test code = 9.5 mg/dL 8.6-10.6 2064970978) T PROTEIN (test code = 7.0 g/dL 6.3-8.2 5030272327) ALBUMIN (test code = 3.9 g/dL 3.5-5.0 6104958027) ALK PHOS (test code = 74 U/L 34-122 3677255010) ALTv (test code = 15 U/L 5-50 2-6) AST(SGOT) (test code = 21 U/L 13-40 2501241450) eGFR (test code = 38.8 mL/min/1.73m2 5872159962) AFSHIN (test code = AFSHIN) Association of Glomerular Filtration Rate (GFR) and Staging of Kidney Disease* + --+ --+ ------+| GFR (mL/min/1.73 m2) ?| With Kidney Damage ?| ?Without Kidney Damage+ --------+ --------+ +| ?>90 ?| ?Stage one ?| ? Normal ?+ ---+ ---+ -------+| ?60-89 ?| ?Stage two ?| ? Decreased GFR ? + --+ --+ ------+| ?30-59 ?| ?Stage three ?| ? Stage three ? + --+ --+ ------+| ?15-29 ?| ?Stage four ? | ? Stage four ?+ ---+ ---+ -------+| ?<15 (or dialysis) ? ?| ?Stage five ? | ? Stage five ?+ ---+ ---+ -------+ *Each stage assumes the associated GFR level has been in effect for at least three months. ?Stages 1 to 5, with or without kidney disease, indicate chronic kidney disease. Notes: Determination of stages one and two (with eGFR >59mL/min/1.73 m2) requires estimation of kidney damage for at least three months as defined by structural or functional abnormalities of the kidney, manifested by either:Pathological abnormalities or Markers of kidney damage (including abnormalities in the composition of the blood or urine or abnormalities in imaging tests). Lab Interpretation Abnormal (test code = 23538-1) [facility]. METABOLIC PANEL (82438)2023-05-17 00:07:09 Test Item Value Reference Range Interpretation Comments NA (test code = 138 mmol/L 135-145 9089527756) K (test code = 4.2 mmol/L 3.5-5.0 6989967541) CL (test code = 104 mmol/L 98-108 1791357048) CO2 TOTAL (test code = 25 mmol/L 23-31 7333563204) AGAP (test code = 9 2-16 2924846022) BUN (test code = 31 mg/dL 7-23 H 4839806314) GLUCOSE (test code = 110 mg/dL 70-110 1971529160) CREATININE (test code = 1.70 mg/dL 0.60-1.25 H 9586772834) TOTAL BILI (test code = 1.7 mg/dL 0.1-1.1 H 2722955736) CALCIUM (test code = 9.5 mg/dL 8.6-10.6 7652212297) T PROTEIN (test code = 7.0 g/dL 6.3-8.2 5517278317) ALBUMIN (test code = 3.9 g/dL 3.5-5.0 0461886848) ALK PHOS (test code = 74 U/L 34-122 5948179155) ALTv (test code = 15 U/L 5-50 1742-6) AST(SGOT) (test code = 21 U/L 13-40 3309690535) eGFR (test code = 38.8 mL/min/1.73m2 4728296081) AFSHIN (test code = AFSHIN) Association of Glomerular Filtration Rate (GFR) and Staging of Kidney Disease* + --+ --+ ------+| GFR (mL/min/1.73 m2) ?| With Kidney Damage ?| ?Without Kidney Damage+ --------+ --------+ +| ?>90 ?| ?Stage one ?| ? Normal ?+ ---+ ---+ -------+| ?60-89 ?| ?Stage two ?| ? Decreased GFR ? + --+ --+ ------+| ?30-59 ?| ?Stage three ?| ? Stage three ? + --+ --+ ------+| ?15-29 ?| ?Stage four ? | ? Stage four ?+ ---+ ---+ -------+| ?<15 (or dialysis) ? ?| ?Stage five ? | ? Stage five ?+ ---+ ---+ -------+ *Each stage assumes the associated GFR level has been in effect for at least three months. ?Stages 1 to 5, with or without kidney disease, indicate chronic kidney disease. Notes: Determination of stages one and two (with eGFR >59mL/min/1.73 m2) requires estimation of kidney damage for at least three months as defined by structural or functional abnormalities of the kidney, manifested by either:Pathological abnormalities or Markers of kidney damage (including abnormalities in the composition of the blood or urine or abnormalities in imaging tests). Lab Interpretation Abnormal (test code = 17865-4) [facility]LIP[facility] 00:06:49 Test Item Value Reference Range Interpretation Comments LIPASE (test code = 9332253921) 104 U/L 0-220 Lab Interpretation (test code = Normal 77535-9) [facility] 00:06:49 Test Item Value Reference Range Interpretation Comments LIPASE (test code = 3605044302) 104 U/L 0-220 Lab Interpretation (test code = Normal 92957-8) [facility] CenterCB WITH [id number] 23:49:07 Test Item Value Reference Range Interpretation Comments WBC (test code = 8.87 See_Comment [Automated 7846-2) message] The sy stem which generated this result transmitted reference range : 4.20 - 10.70 10*3/?L. The reference range was not used to interpret this result as normal/abnormal . RBC (test code = 4.94 See_Comment [Automated 566-7) message] The sy stem which generated this result transmitted reference range : 4.26 - 5.52 10*6/?L. The reference range was not used to interpret this result as normal/abnormal . HGB (test code = 14.3 g/dL 12.2-16.4 718-7) HCT (test code = 43.2 % 38.4-49.3 4544-3) MCV (test code = 87.4 fL 81.7-95.6 787-2) MCH (test code = 28.9 pg 26.1-32.7 785-6) MCHC (test code = 33.1 g/dL 31.2-35.0 786-4) RDW-SD (test code = 42.1 fL 38.5-51.6 28873-1) RDW-CV (test code = 13.2 % 12.1-15.4 788-0) PLT (test code = 315 See_Comment [Automated 777-3) message] The sy stem which generated this result transmitted reference range : 150 - 328 10*3/ ?L. The reference r rima was not used to interpret this result as normal/abnormal . MPV (test code = 8.6 fL 9.8-13.0 L 41520-9) NRBC/100 WBC (test 0.0 See_Comment [Automat ed code = 5307597803) message] The system which generated this result transmitted reference range : 0.0 - 10.0 /100 WBCs. The refer ence range was not u sed to interpret th is result as normal/abnormal . NRBC x10^3 (test code See_Comment [Auto mated = 9071943703) message] The s ystem which generated this result transmitted reference range : 10*3/?L. The reference range was not used to interpret this result as normal/abnormal . GRAN MAT (NEUT) % 64.9 % (test code = 770-8) IMM GRAN % (test code 0.30 % = 8500037546) LYMPH % (test code = 20.1 % 736-9) MONO % (test code = 10.0 % 5905-5) EOS % (test code = 3.0 % 713-8) BASO % (test code = 1.7 % 706-2) GRAN MAT x10^3(ANC) 5.75 10*3/uL 1.99-6.95 (test code = 6333617754) IMM GRAN x10^3 (test 0.03 10*3/uL 0.00-0.06 code = 9262302242) LYMPH x10^3 (test code 1.78 10*3/uL 1.09-3.23 = 731-0) MONO x10^3 (test code 0.89 10*3/uL 0.36-1.02 = 742-7) EOS x10^3 (test code = 0.27 10*3/uL 0.06-0.53 711-2) BASO x10^3 (test code 0.15 10*3/uL 0.01-0.09 H = 704-7) Lab Interpretation Abnormal (test code = 46735-5) [facility] WITH [id number] 23:49:07 Test Item Value Reference Range Interpretation Comments WBC (test code = 8.87 See_Comment [Automated 5223-2) message] The sy stem which generated this result transmitted reference range : 4.20 - 10.70 10*3/?L. The reference range was not used to interpret this result as normal/abnormal . RBC (test code = 4.94 See_Comment [Automated 977-8) message] The sy stem which generated this result transmitted reference range : 4.26 - 5.52 10*6/?L. The reference range was not used to interpret this result as normal/abnormal . HGB (test code = 14.3 g/dL 12.2-16.4 718-7) HCT (test code = 43.2 % 38.4-49.3 4544-3) MCV (test code = 87.4 fL 81.7-95.6 787-2) MCH (test code = 28.9 pg 26.1-32.7 785-6) MCHC (test code = 33.1 g/dL 31.2-35.0 786-4) RDW-SD (test code = 42.1 fL 38.5-51.6 69951-8) RDW-CV (test code = 13.2 % 12.1-15.4 788-0) PLT (test code = 315 See_Comment [Automated 757-3) message] The sy stem which generated this result transmitted reference range : 150 - 328 10*3/ ?L. The reference r rima was not used to interpret this result as normal/abnormal . MPV (test code = 8.6 fL 9.8-13.0 L 77993-2) NRBC/100 WBC (test 0.0 See_Comment [Automat ed code = 5237115997) message] The system which generated this result transmitted reference range : 0.0 - 10.0 /100 WBCs. The refer ence range was not u sed to interpret th is result as normal/abnormal . NRBC x10^3 (test code See_Comment [Auto mated = 3622822860) message] The s ystem which generated this result transmitted reference range : 10*3/?L. The reference range was not used to interpret this result as normal/abnormal . GRAN MAT (NEUT) % 64.9 % (test code = 770-8) IMM GRAN % (test code 0.30 % = 5958042665) LYMPH % (test code = 20.1 % 736-9) MONO % (test code = 10.0 % 5905-5) EOS % (test code = 3.0 % 713-8) BASO % (test code = 1.7 % 706-2) GRAN MAT x10^3(ANC) 5.75 10*3/uL 1.99-6.95 (test code = 7873098440) IMM GRAN x10^3 (test 0.03 10*3/uL 0.00-0.06 code = 0188780885) LYMPH x10^3 (test code 1.78 10*3/uL 1.09-3.23 = 731-0) MONO x10^3 (test code 0.89 10*3/uL 0.36-1.02 = 742-7) EOS x10^3 (test code = 0.27 10*3/uL 0.06-0.53 711-2) BASO x10^3 (test code 0.15 10*3/uL 0.01-0.09 H = 704-7) Lab Interpretation Abnormal (test code = 45500-0) [facility] + LACTIC [id number] 23:44:18 Test Item Value Reference Range Interpretation Comments PH (test code = 7.34 7.32-7.42 7140484926) PCO2 STARR (test code = 43 See_Comment [Auto mated 4218217529) message] The sy stem which generated this result transmitted reference range : 41 - 51 mmHg. The reference range was not used to interpret this result as normal/abnormal . PO2 STARR (test code = 27 See_Comment [Autom ated 8897971679) message] The sy stem which generated this result transmitted reference range : 25 - 40 mmHg. The reference range was not used to interpret this result as normal/abnormal . HCO3 STARR (test code = 23 See_Comment L [Auto mated 6737304108) message] The sy stem which generated this result transmitted reference range : 24 - 28 mEq/L. The reference range was not used to interpret this result as normal/abnormal . AC VBE(BEAKER) (test -3.0 mEq/L code = 0293433514) THB STARR (test code = 15.1 g/dL 13.5-18.0 2728731183) %O2HB STARR (test code = 47.9 % 52.0-63.0 L 0880243344) %COHB STARR (test code = 1.0 % 0.0-1.5 7410670710) %METHB STARR (test code = 0.3 % 0.4-1.5 L 7325218198) VOL%O2 STARR (test code = 10.1 % 6.0-12.0 8332286910) NA (test code = 137 mmol/L 135-145 1004358562) K+ (test code = 4.1 mmol/L 3.5-5.0 4973307448) AC CA IONZ (test code = 5.00 mg/dL 4.50-5.30 1543412856) GLUCOSE (test code = 105 mg/dL 70-110 7773435911) LACTIC ACID (test code 1.46 mmol/L 0.50-2.20 = 7110076467) Lab Interpretation Abnormal (test code = 79460-9) [facility] + LACTIC [id number] 23:44:18 Test Item Value Reference Range Interpretation Comments PH (test code = 7.34 7.32-7.42 0443368009) PCO2 STARR (test code = 43 See_Comment [Auto mated 8935831523) message] The sy stem which generated this result transmitted reference range : 41 - 51 mmHg. The reference range was not used to interpret this result as normal/abnormal . PO2 STARR (test code = 27 See_Comment [Autom ated 6066785378) message] The sy stem which generated this result transmitted reference range : 25 - 40 mmHg. The reference range was not used to interpret this result as normal/abnormal . HCO3 STARR (test code = 23 See_Comment L [Auto mated 1949571374) message] The sy stem which generated this result transmitted reference range : 24 - 28 mEq/L. The reference range was not used to interpret this result as normal/abnormal . AC VBE(BEAKER) (test -3.0 mEq/L code = 2912621936) THB STARR (test code = 15.1 g/dL 13.5-18.0 4010780705) %O2HB STARR (test code = 47.9 % 52.0-63.0 L 9305604282) %COHB STARR (test code = 1.0 % 0.0-1.5 1436808962) %METHB STARR (test code = 0.3 % 0.4-1.5 L 6370792050) VOL%O2 STARR (test code = 10.1 % 6.0-12.0 2471846187) NA (test code = 137 mmol/L 135-145 3578067017) K+ (test code = 4.1 mmol/L 3.5-5.0 1722964341) AC CA IONZ (test code = 5.00 mg/dL 4.50-5.30 1155652271) GLUCOSE (test code = 105 mg/dL 70-110 4305317983) LACTIC ACID (test code 1.46 mmol/L 0.50-2.20 = 8297276386) Lab Interpretation Abnormal (test code = 16789-9) [facility] - ONCE [id number] 23:44:00 Test Item Value Reference Range Interpretation Comments ABO & RH (test code = 20) A Negative IAT (test code = 1185) Negative [facility] [id number] 23:44:00 Test Item Value Reference Range Interpretation Comments ABO & RH (test code = 20) A Negative IAT (test code = 1185) Negative [facility] Consult Notes Date/Time Note Provider Source 2023-05-18 1302-39-93K85:07:07Associated Sary Johnson [facility] 11:07:07 Order(s): CONSULT FOOD AND NUTRITION MEDICAL NUTRITION THERAPY ASSESSMENT NOTEREASON FOR CONSULT: Reason for Encounter: Physician Consult and Nutritional Risk ScreeningNutritional Risk Screening: BMI Score, Weight Loss, Reduced Dietary Intake, Disease Severity, and >70 y/oNutritional Risk Score: 9NUTRITION ASSESSMENT:PMH/PSH: Past Medical History: Diagnosis Date HTN (hypertension) PAD (peripheral artery disease) Past Surgical History: Procedure Laterality Date ESOPHAGOGASTRODUODENOSCOPY N/A 05/17/2023 Surgeon: Cholo Holm MD; Location: [facility] [place] Current Medical Condition: per provider note, patient admitted for dysphagia/inability to keep PO intake down. Patient had EGD on 05/17/2023 which found food in the lower 1/3 of the esophagus and lesion/mass of distal esophagus. Subjective: Pt daughter reports poor intake for 1.5-2 months, as well as a 52# (~30%) weight loss during that same time frame (severe weight loss, but unable to confirm weight loss per EMR history). 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 Per ANIMAL HOSPITAL OFFICE SUPERVISOR, pt is now tolerating chilled Ensure HP, which is considered a nectar thick liquid. Recommend switching to Ensure Plus HP for additional calories (350 calories in Ensure Plus HP vs. 160 calories in Ensure HP).GI and Nutrition Related Findings: Symptoms: None; Last BM: 05/17Difficulty Chewing/Swallowing: SwallowingGI tract alteration: noneAlternative means of nutrition: Peripheral IVEdema/Ascites: NoWounds: NoneNutrition Focused Physical Exam Subcutaneous Fat: Eyes: Severe Triceps: Severe Ribs, lower back, sides of trunk: Not assessedMuscle Wasting: Clavicle : Moderate Scapula/ribs : Not assessed Quadriceps: Severe Interosseous: Moderate Latter-Day: Severe Shoulder: Moderate Pertinent Medications: protonix, magnesium sulfate in water 4g @ 25 ml/hr, D5W + 1/2 NS + KCL 20 mEq @ 100 ml/hr (provides 408 kcals)Lab and Medical Test Results: CBC: Recent Labs 05/18/2303 WBC 8.87 7.60 RBC 4.94 4.16* HGB 14.3 12.2 HCT 43.2 36.8* MCV 87.4 88.5 MCHC 33.1 33.2 BMP:Recent Labs 05/18/2306 NA 138 136 K 4.2 3.8 CL 104 105 TCO2 25 26 AGAP 9 5 MG -- 1.6* PHOS -- 3.1 GLU 110 114* BUN 31* 14 CREAT 1.70* 1.07 EGFR 38.8 66.2 CA 9.5 7.8* ALB 3.9 -- LIPASE 104 -- Anthropometrics: 83 year old male Ht Readings from Last 1 Encounters: 05/16/23 1.803 m (5' 11") Weight History: Wt Readings from Last 3 Encounters: 05/18/23 58 kg (127 lb 12.8 oz) 09/30/19 72.5 kg (159 lb 13.3 oz) Percent of weight change: %Timeframe of weight change: BMI: Body mass index is 17.82 kg/m?. (Underweight ) IBW: 81.27 kg (BMI 25 for >65 YO) %IBW: 71%Estimated Energy NeedsCalories: 9297-4814 kcal/day; 30-35 kcals/kg Current WeightProtein: 70-116 g/day, 1.2-2 g/kg Current WeightFluid: 2282-3901 ml/day (~1 ml/kcal) or per MD/Medical TeamCurrent Dietary Order(s): Ensure Clear (1 kcal/mL, 14% protein, no fat)Clear Liquid Diet; No jellos Food Sensitivity Modifiers: None.Ensure High Protein (0.7 kcal/mL, protein 41% of kcal) Food Allergies/Cultural or Congregational Preferences: No Known AllergiesNUTRITION DIAGNOSIS:Nutrition Dx 1: Severe malnutrition in the context of acute illness Related to: dysphagia and esophageal mass As Evidenced by: </=50% EER for >/= 5 days, >5% weight loss in 1 month, moderate to severe muscle wasting and fat loss per NFPE. (New nutrition diagnosis)NUTRITION INTERVENTION:1. Recommend Full Liquid Diet with Ensure Plus HP QID. If patient does not want Ensure due to taste, recommend mixing Ensure with ice cream (ok per ANIMAL HOSPITAL OFFICE SUPERVISOR)2. Depending on findings on mass biopsy, may need to consider enteral nutrition to ensure patient is able to meet nutrition/hydration needsNUTRITION MONITORING AND EVALUATION: A registered dietitian will f/u in as indicated and review patients progress towards nutrition goals, report nutrition related information and to revise the nutrition recommendations and interventions.Goals:1. Patient will meet >50% of EER during admission (New Goal Identified)2. Patient will consume at least one Ensure Plus HP supplement per day (New Goal Identified)Discharge Needs: Undetermined at this timeSary Johnson RD, LDClinical DietitianOffice 73847-5Zelotxw icasLT5120-91-64I51:49:02Consult [id number]. 2.979129|[id number] for patient lygc54654-4Yihdmia [id number] [address][id number] 9TWKCFBZIOISQNWJOZEPQVU3627-32-13Y2 4:49:021.2.840.863289.1.72.3.15|1.2 .840.885548.1.13.104.2.7.2.727879_1 [id number] 2023-05-18 7199-10-30S77:24:55Associated [facility] 10:24:55 Order(s): CONSULT SPEECHFormatting ANIMAL HOSPITAL OFFICE SUPERVISOR of this note is different from the original.Speech-Language PathologyClinical Swallow Evaluation05/18/2023 Aksoua Davenport : 1940 Age/Sex: 83 year old male Time IN/OUT: 1024-1050Referring Physician: Marlene Tanner FNPDate of Referral: 05/18/2023Reason for Referral: dysphagiaDate of Admission/Onset: 05/16/2023SUBJECTIVE: Patient awake and in bed with daughter at bedside. Both report poor tolerance of anything solid, with immediate regurgitation. Patient was even having a point at which he would regurgitate water. Patient has been able to tolerate liquids since yesterday. Patient has been on full liquid diet and has had water, Ensure, coffee, sherbet, and juiceOBJECTIVE: is being seen for a clinical swallow evaluation. Akosua Davenport is a 83 year old male admitted for dysphagia/inability to keep material down with PMH significant for HTN, PAD. Patient had EGD on 05/17/2023 which found food in the lower 1/3 of the esophagus and lesion/mass of distal esophagus. Mass was biopsied.Pertinent Imaging: CT THORAX WO CONTRASTResult Date: 05/17/2023Moderate coronary arteriosclerosis. Retained fluid and food in the distal esophagus. Evaluation for esophageal mass is significantly limited in the absence of intravenous contrast material. There is apparent thickening of the anterior distal esophageal wall with displacement of intraluminal air posteriorly, better appreciated on prior CT of the abdomen and pelvis, concerning for neoplasm. Further evaluation with endoscopy is recommended, particularly if the patient is unable to receive intravenous contrast. Moderate centrilobular emphysema. Thickening of the bronchial ledezma in the lower lobes bilaterally, with patchy groundglass nodularity, suggestive of pneumonia versus aspiration. RL: 460 CT ABDOMEN PELVIS WO CONTRASTResult Date: . Asymmetric thickening of distal esophagus. Also noted is asymmetric thickening of the rectal wall. Recommend evaluation with endoscopy. 2. Diverticulosis without evidence of diverticulitis. 3. Prostamegaly. 4. Moderate stool burden Preliminary Report Dictated by Resident: Yahir Doshi I, Elie Al MD., have reviewed this study and agree with the above report.XR CHEST 1 VWResult Date: 05/16/2023Impression: No acute intrathoracic disease. No intrathoracic mass. RL: 460 End of report. Previous ANIMAL HOSPITAL OFFICE SUPERVISOR Services/Swallow History: Patient was seen for evaluation and treatment of oropharyngeal dysphagia 10/01/2019-10/03/2019. Patient was recommended regular-textured diet with thin liquids and swallow precautions: sit fully upright/chair and remain upright for 30 minutes after meals Past Medical History: Diagnosis Date HTN (hypertension) PAD (peripheral artery disease) Past Surgical History: Procedure Laterality Date ESOPHAGOGASTRODUODENOSCOPY N/A 05/17/2023 Surgeon: Cholo Holm MD; Location: [facility] [place] General Behavior: Alert, Calm, and CooperativeHearing: WFL for speechRespiratory Status: room airOrientation/Cognition:- Patient oriented to: person, place, and situation- Response type: verbal- Follows 1-step commands: YesCurrent Diet Texture/Means of Nutrition: Full liquid dietOral Motor Exam Dentition and Oral Cavity: edentulous and moist oral mucosa Face within normal limits and symmetrical Jaw within normal limits and symmetrical Lips within normal limits and symmetrical Tongue within normal limits and midline on protrusion Palate within normal limits and symmetrical Vocal Quality hyponasal Speech clear/intelligible CLINICAL SWALLOW EVALUATION Swallows on command: Yes Handles Secretions: Yes Volitional Cough: present Spontaneous Cough: No PO trials were administered by patient. Patient was provided with multiple bites/sips of thin liquid (0) and nectar/mildly-thick liquid (2) consistencies with the following observations: Oral Stage Anterior leakage of bolus not observed Pocketing of bolus not observed Subjectively prolonged oral phase not observed Oral residue not observed Mastication did not test Pharyngeal Stage Subjectively reduced laryngeal elevation not observed Coughing or throat clearing not observed Change in voice quality not observed Multiple swallows subjectively not observed Respiratory sufficiency and coordination WFL - no increased work of breathing and/or oxygen sats and respiratory rate remained stable Report of globus sensation no 3 oz water challenge passed Patient/Family/Staff education: Provided verbally. Discussed findings of evaluation, recommendations and ANIMAL HOSPITAL OFFICE SUPERVISOR plan of care. Patient/family verbalized understanding and is in agreement with plan of care. RN and referring provider notified of findings and recommendations.Patient/Family goal: to eat and drinkASSESSMENT/IMPRESSIONS: Akosua Davenport presents with findings of esophageal dysphagia / esophageal mass on EGD. However, he appears to have a grossly functional oropharyngeal swallow. Patient had adequate labial seal and subjectively timely oral stage. No coughing, choking, or other si/sx of aspiration observed at bedside. Patient's WBC is WFL and he is afebrile: Temp (24hrs), Av.4 ?C (97.5 ?F), Min:35.7 ?C (96.3 ?F), Max:36.8 ?C (98.3 ?F). CXR with reports of lung base nodule, but does not appear to present with clinical signs of aspiration. Patient's oropharyngeal swallow appears safe and functional for PO intake.Biopsy of esophageal mass is currently being worked up. Depending on findings, patient may need placement of RAMSES to ensure he is able to meet nutrition/hydration needs. However, do not recommend placement until biopsy results are returned and surgical team has put in recommendations. He would benefit from close monitoring in interim; patient is at risk of aspiration on regurgitated material. Prognosis is favorable for safe po intake with adherence to texture modifications and adherence to swallow precautions due to above findings. Prognosis is fair for meeting nutrition/hydration needs by mouth with time due to unknown etiology of impairments/need for ongoing work-up.RECOMMENDATIONS/GOALS:1. Recommend patient continue a full liquid-textured diet with swallow precautions: sit fully upright/in chair, ok to use straws, and remain upright after PO intake 2. Patient will likely need medications as liquids, given blockage of solids seen on EGD3. ANIMAL HOSPITAL OFFICE SUPERVISOR will continue to follow via chart review to determine further dysphagia interventions once biopsy results return.Germaine Patino MS, [email or web address] coverage provided at multiple locations, please use the following numbers based on patient's location to contact this ANIMAL HOSPITAL OFFICE SUPERVISOR:[place] Speech: [phone] (rehab department)[place] Speech: [phone] (main office)[place] Speech: [phone] ([place] office)If unable to reach ANIMAL HOSPITAL OFFICE SUPERVISOR at these numbers, please text [phone] [id number] ylbcUV5078-10-23I65:22:19Consult noteTXT1.2.840.776753.1.13.104.2.7. 2.589272|[id number] for patient [id number] [id number] Jamison [address] [id number] 1XOXGSOBDPWMVJCNLKXAQDH0105-65-27Y7 1:22:191.2.840.762477.1.72.3.15|1.2 .840.799458.1.13.104.2.7.2.727879_1 [id number] 2023-05-17 [id number]:32:42[facility]ated [facility] 06:32:42 Order(s): CONSULT GENERAL SURGERY General Surgery History & PhysicalReason for Consult: "nausea/vomiting"History of Present Illness: Akosua Davenport is a 83 year old male with pmhx PAD, HTN, presenting as an inpatient consult for symptoms of nausea and vomiting, as well as difficulty swallowing. Daughter has been giving history, patient notes a month of nausea, vomiting and weight loss as well as over 50 lbs of weight loss. He notes prior revascularization of his right lower extremity but not the left. Notes right foot plating in the past. Of note he is a prior smoker with remote heavy smoking history and heavy drinker in the past. Past Medical History: Patient has a past medical history of HTN (hypertension) and PAD (peripheral artery disease).Past Surgical History: Patient has no past surgical history on file.Family History: Patient's family history is not on file.Social History: Patient reports that he has quit smoking. His smoking use included cigarettes. He has been exposed to tobacco smoke. He has never used smokeless tobacco.Review of systems:Constitutional: (-) fever, (-) chills, (-) weight changeIntegumentary: (-) rash, (-) lesionHead: (-) headache, (-) change in hearing, (-) change in visionNeck: (-) pain, (-) difficulty swallowing, (-) massHematologic: (-) bleeding disorderPulmonary: (-) cough, (-) shortness of breathCardiovascular: (-) chest pain, (-) palpitations, (-) syncopeGastrointestinal: (-) abdominal pain, +, vomiting, (-) diarrheaGenitourinary: (-) dysuria, (-) increased frequencyEndocrine: (-) heat intolerance, (-) cold intolerance, (-) polyuria, (-) polydipsiaNeurologic: (-) numbness, (-) tingling, (-) weaknessBack: (-) pain, (-) spasmsMusculoskeletal: (-) muscle pain, (-) joint pain, (-) claudicationPsychiatric: (-) anxiety, (-) depression, (-) psychiatric disorderObjective:Vitals:Temp: [36 ?C (96.8 ?F)-36.7 ?C (98.1 ?F)] Heart Rate (monitor): [61-79] Pulse: [38-98] Resp: [15-25] BP: (80-162)/(55-102) MAP (mmHg): [77-118] Physical exam:General: no apparent distressNeurologic: alert and oriented to person, place, and timeCardiac: regular rate and rhythmChest: unlabored breathing Extremities: no gross deformities or injuriesVascular: pulses palpable and equalAbdomen: no rebound, guarding, or point tendernessSkin: no rashesLaboratory:Recent Labs PTINR 1.1 PTPAT 13.5 APTTPAT 27 Recent Labs WBC 8.87 HGB 14.3 PLT 315 Recent Labs NA 138 K 4.2 CL 104 TCO2 25 BUN 31* CREAT 1.70* GLU 110 CA 9.5 Recent Labs BILIT 1.7* ALT 15 AST 21 ALKPHOS 74 ALB 3.9 LIPASE 104 There are no current results on file for these tests and/or test for 1 year.Recent Labs TROPNI 0.006 NTBNP 147 There are no current results on file for these tests and/or test for 1 year. Radiology:XR CHEST 1 VWResult Date: 05/16/2023Impression: No acute intrathoracic disease. No intrathoracic mass. RL: 460 End of report. 05/16/2023EXAM: CT ABDOMEN PELVIS WO CONTRAST HISTORY: 83 years-old Male; Nausea/vomiting x1 month with 50 pound weightloss. TECHNIQUE: Contiguous axial imaging from the level of the lung basesthrough the proximal thighs was performed without the intravenousadministration of contrast. Coronal and sagittal reconstructions wereobtained. COMPARISON: None FINDINGS: LOWER THORAX: A calcified granuloma seen in the right lower lobe. The lungbases are otherwise clear. Asymmetric thickening of the distal esophagus isidentified (series 2, image 6). LIVER: Scattered punctate calcified granulomas seen throughout the liverparenchyma. The liver is normal in size and contour. No focal hepaticlesion is seen. GALLBLADDER AND BILIARY TREE: Layering gallbladder sludge is suspected. Noradiopaque gallstones are seen. No intra or extrahepatic biliary ductaldilation is visualized. SPLEEN: Punctate calcified granuloma seen within the spleen. PANCREAS: Grossly unremarkable. ADRENAL GLANDS: No adrenal masses are seen. KIDNEYS: No hydronephrosis, stones, or contour deforming solid masses arevisualized. GI TRACT: Sigmoid diverticula seen without focal inflammatory changes. Nodilation or bowel wall thickening is seen. Moderate stool burden is noted. PERITONEUM AND RETROPERITONEUM: No intra-abdominal free air or fluidcollection is visualized. PELVIS/BLADDER: The bladder is adequately distended and appearsunremarkable. The prostate is enlarged measuring up to 5.2 cm intransverse dimension. LYMPH NODES: No enlarged intra-abdominal or pelvic lymph nodes are found. VESSELS: Moderate atherosclerotic calcifications affect the abdominalaorta, bilateral common iliac arteries, and their branch vessels. BONES AND SOFT TISSUES: No suspicious lytic or sclerotic bony lesions arepresent multilevel degenerative changes of the spine are most conspicuousfrom L3 through L5 for osteoporosis, degenerative discs and facetarthrosis. IMPRESSION Asymmetric thickening of distal esophagus. Recommend evaluation withendoscopy. Diverticulosis without evidence of diverticulitis. Prostamegaly.Microbiology:NAAssessm ent:This is Mr. Akosua Davenport, 83 y/o M with hx DMII, HTN, PAD, R carotid artery stenosis, presenting with symptoms of longstanding nausea/vomiting and dysphagia, no prior endoscopy. He would benefit from endoscopy to further delineate the esophageal lesion with possible biopsy.Plan:Admit to medicineEndoscopy today Further management based on endoscopy resultsThe patient was discussed with Dr. Oliver Bundy MD05/17/2023 07:05 ssociated attestation - Cholo Holm MD - 05/17/2023 1:03 PM CDT I personally examined the patient on 05/17/[address] Bundy's resident note as written . I actively participated in the decision-making process. Please see the resident's note for additional details. Will proceed with EGDDiscussed [place] [id number] [id number], [id number] .2.277390UllxWwytmsunXY5920-00-50J8 3:03:53Consult noteTXT1.2.840.644035.1.13.104.2.7. 2.705149|[id number] for patient ndju51071-6Guetdhz noteLNUT[address] [id number] 3XVZKJSZQECFRTFRBCHGBAI4482-88-41P3 3:03:531.2.840.405936.1.72.3.15|1.2 .840.734019.1.13.104.2.7.2.727879_1 [id number] History and Physical Notes Date/Time Note Provider Source 2023-05-17 08:15:36 0068-53-28P07:15:36Formatting of this note [facility] is different from the original.Medicine History & PhysicalDate of Service: 3Pt presents from: homeCC: "couldn't keep anything down"History of Present Illness:Akosua Davenport is a 83 year old male with a PMH of none who presented to the ED for dysphagia.Giorgio has had significant weight loss. He states that for the past month he has been unable to keep anything down. Attempts to take solids and liquids by mouth result in immediate cough/regurgitation. No previous history of dysphagia or esophageal issues. No history of GERD or reflux symptoms. Prescribed Prevacid PRN, but rarely needs to take it. No medications at home. Former smoker, quit 30 years ago. No skin or joint changes. ROS: Pt denies fever / chills / nausea / vomiting / diarrhea / constipation / chest pain / SOB / cough / abdominal pain / dysuria / hematuria / melena / hematochezia / rashes / suicidal or homicidal ideation / All others negativeReview of Hx/Meds:No current facility-administered medications on file prior to encounter. No current outpatient medications on file prior to encounter. I have reviewed the patient's home medicationsPMH: Past Medical History: Diagnosis Date HTN (hypertension) PAD (peripheral artery disease) PSH: has no past surgical history on file. Family Hx: Social History Tobacco Use Smoking status: Former Types: Cigarettes Passive exposure: Past Smokeless tobacco: Never Current Scheduled Medications Current IV Current Facility-Administered Medications: acetaminophen (TYLENOL) tablet 650 mg, 650 mg, Oral, Q6HPRN, Jayce Vargas MD D5W 0.45% NaCl (1/2NS) 1 L + KCL 20 mEq, , Intravenous, CONTINUOUS, Dontae Grimes MD, Last Rate: 100 mL/hr at 05/17/23 0654, Rate Verify at 05/17/23 0654 enoxaparin (LOVENOX) injection 40 mg, 40 mg, Subcutaneous, DAILY, Jayce Vargas MD morpHINE (4 mg/mL) injection 4 mg, 4 mg, Slow IV Push, Q4HPRN, Jayce Vargas MD ondansetron (ZOFRAN (PF)) injection 4 mg, 4 mg, Slow IV Push, Q6HPRN, Jayce Vargas MDObjective:Vitals:Vitals: 05/16/23 2317 05/17/23 0430 05/17/23 0433 05/17/23 0722 BP: (!) 149/102 139/77 129/79 Pulse: (!) 38 64 73 Resp: 16 16 Temp: 36 ?C (96.8 ?F) 36.4 ?C (97.5 ?F) SpO2: 96% 95% 98% Weight: 54.5 kg (120 lb 1.6 oz) Height: 1.803 m (5' 11") I/O's:Intake/Output Summary (Last 24 hours) at 05/17/2023 0815Last data filed at 05/17/2023 0654Gross per 24 hour Intake 1801.27 ml Output -- Net 1801.27 ml Physical Exam:Constitutional: A&O x3, well-developed, well-nourished, and in no distress. Head: Normocephalic and atraumatic. Eyes: PERRL. Conjunctivae and EOM are normal. Neck: Normal range of motion. Neck supple. No JVD present.Cardiovascular: Normal rate, regular rhythm, normal heart sounds Pulmonary/Chest: Effort normal and breath sounds normal. No respiratory distress. No wheezes, rales or rhonchi. Abdominal: Soft. Bowel sounds are normal. No TTP, non-distended and no masses. No rebound or guarding. Musculoskeletal: Normal range of motion. No edema or tenderness. Lymphadenopathy: No cervical adenopathy. Neurological: A&O x3. No focal deficits. Gait normal. Skin: Skin is warm and dry. No rash noted. No erythema. No pallor. Labs:BMP:BMP NA (mmol/L) Date Value 05/16/2023 138 10/03/2019 138 10/02/2019 138 10/02/2019 136 10/01/2019 137 K (mmol/L) Date Value 05/16/2023 4.2 10/03/2019 3.9 10/02/2019 4.1 10/02/2019 4.0 10/01/2019 4.1 CALCIUM (mg/dL) Date Value 05/16/2023 9.5 10/03/2019 8.9 10/02/2019 9.1 10/02/2019 9.0 10/01/2019 8.9 CL (mmol/L) Date Value 05/16/2023 104 10/03/2019 102 10/02/2019 103 10/02/2019 105 10/01/2019 103 BUN (mg/dL) Date Value 05/16/2023 31 (H) 10/03/2019 21 10/02/2019 19 10/02/2019 22 10/01/2019 17 CREATININE (mg/dL) Date Value 05/16/2023 1.70 (H) 10/03/2019 1.34 (H) 10/02/2019 1.34 (H) 10/02/2019 1.47 (H) 10/01/2019 1.26 (H) GLUCOSE (mg/dL) Date Value 05/16/2023 110 10/03/2019 118 (H) 10/02/2019 119 (H) 10/02/2019 127 (H) 10/01/2019 165 (H) CO2 TOTAL (mmol/L) Date Value 05/16/2023 25 10/03/2019 27 10/02/2019 26 10/02/2019 23 10/01/2019 24 CBC:CBCWBC (10*3/?L) Date Value 05/16/2023 8.87 RBC (10*6/?L) Date Value 05/16/2023 4.94 PLT (10*3/?L) Date Value 05/16/2023 315 HGB (g/dL) Date Value 05/16/2023 14.3 HCT (%) Date Value 05/16/2023 43.2 BMP:Hepatic Function PanelALBUMIN (g/dL) Date Value 05/16/2023 3.9 T PROTEIN (g/dL) Date Value 05/16/2023 7.0 TOTAL BILI (mg/dL) Date Value 05/16/2023 1.7 (H) ALTv (U/L) Date Value 05/16/2023 15 AST(SGOT) (U/L) Date Value 05/16/2023 21 ALK PHOS (U/L) Date Value 05/16/2023 74 Troponin: Recent Labs TROPNI 0.006 I have reviewed all relevant labsImaging:XR CHEST 1 VWResult Date: 05/16/2023Exam: Chest (1 View), 05/16/2023 7:30 PM. Ordering Physician: DONTAE GRIMES. History: Mass evaluation. Technique: AP view of the chest. Technical Quality: Adequate. Comparison: Chest radiograph 09/30/2019. Findings: Normal cardiac silhouette size. No airspace consolidation or pneumothorax. Small lucency in the left lateral hemithorax is most likely secondary to a skin fold rather than a small pneumothorax. New left lung base 1 mm pulmonary nodule. No acute osseous abnormality. Impression: No acute intrathoracic disease. No intrathoracic mass. RL: [address] ABDOMEN PELVIS WO CONTRASTResult Date: 05/16/2023EXAM: CT ABDOMEN PELVIS WO CONTRAST HISTORY: 83 years-old Male; Nausea/vomiting x1 month with 50 pound weight loss. TECHNIQUE: Contiguous axial imaging from the level of the lung bases through the proximal thighs was performed without the intravenous administration of contrast. Coronal and sagittal reconstructions were obtained. COMPARISON: None FINDINGS: LOWER THORAX: A calcified granuloma seen in the right lower lobe. The lung bases are otherwise clear. Asymmetric thickening of the distal esophagus is identified (series 2, image 6). LIVER: Scattered punctate calcified granulomas seen throughout the liver parenchyma. The liver is normal in size and contour. No focal hepatic lesion is seen. GALLBLADDER AND BILIARY TREE: Layering gallbladder sludge is suspected. No radiopaque gallstones are seen. No intra or extrahepatic biliary ductal dilation is visualized. SPLEEN: Punctate calcified granuloma seen within the spleen. PANCREAS: Grossly unremarkable. ADRENAL GLANDS: No adrenal masses are seen. KIDNEYS: No hydronephrosis, stones, or contour deforming solid masses are visualized. GI TRACT: Sigmoid diverticula seen without focal inflammatory changes. No dilation or bowel wall thickening is seen. Moderate stool burden is noted. PERITONEUM AND RETROPERITONEUM: No intra-abdominal free air or fluid collection is visualized. PELVIS/BLADDER: The bladder is adequately distended and appears unremarkable. The prostate is enlarged measuring up to 5.2 cm in transverse dimension. LYMPH NODES: No enlarged intra-abdominal or pelvic lymph nodes are found. VESSELS: Moderate atherosclerotic calcifications affect the abdominal aorta, bilateral common iliac arteries, and their branch vessels. BONES AND SOFT TISSUES: No suspicious lytic or sclerotic bony lesions are present multilevel degenerative changes of the spine are most conspicuous from L3 through L5 for osteoporosis, degenerative discs and facet arthrosis. Asymmetric thickening of distal esophagus. Recommend evaluation with endoscopy. Diverticulosis without evidence of diverticulitis. Prostamegaly. Preliminary Report Dictated by Resident: Yahir Doshi Assessment and plan:Principal Problem: Dysphagia-NPO, except sips water-speech eval-surgery consult for endoscopy, further recs t follow DVT prophylaxis: [facility] Advanced Care Planning ( Z71.89 )Above assessment and plan discussed at length with patient, patient expressed full understanding. Questions and concerns addressed I spent 18 minutes discussing the advance care planning.Advanced Directive Maker: selfLevel of comfort: N/ACode Status: fullTobacco user (Z71.6)Patient counseled at length and Pt expressed full understanding, Time discussed 3 minutesDisposition: admit to inpt Signed:Jayce Vargas MD05/17/2023 30358-8Xzsrwok and physical nzmcQR6660-96-30O89:18:38History and physical noteTXT1.2.840.653660.1.13.104.2.7.2.47229 9|[id number] for patient miyh59409-7Ypoczmb and physical noteLNUT[address] Tr[id number] ZDJFJRAVEPXZGFGI5834-75-12T43:18:381.2.840 .064158.1.72.3.15|1.2.840.210043.1.13.104. 2.7.2.727879_[id number]
[2023-07-10] MEDS ORDERED: NA CHLORIDE 0.9% 1,000 ML ONE (20:54)
--- NOTE | 2023-07-10 21:06 | RAD REPORT ---
EXAM DESCRIPTION: RAD - Chest Single View - 07/10/2023 9:00 pm CLINICAL HISTORY: fall Chest pain. FINDINGS: Portable technique limits examination quality. The lungs are grossly clear. The heart is normal in size. No displaced fractures. IMPRESSION: No acute intrathoracic process suspected.
[2023-07-10 21:18] LABS: Absolute Lymphocytes (CBC) 0.7 K/uL (0.7-4.9); Hematocrit 45.9 % (39.6-49.0); Lymphocytes % 4.2 % (15.3-44.8); MCV 88.6 fL (80-100); MPV 6.9 fL (7.6-11.3); Platelets 412 thou/uL (152-406); RBC Red Blood Cell Count 5.19 M/uL (4.33-5.43)
[2023-07-10 21:27] LABS: Specific Gravity 1.024 (1.005-1.030); Urine Bacteria <20 /HPF (<20); Urine Bilirubin NEGATIVE (Negative); Urine Blood Negative (Negative); Urine Clarity Extremely Turbid (Clear); Urine Color Yellow (Yellow); Urine Glucose NEGATIVE (Negative); Urine Granular Casts 0-5 /LPF (None Seen); Urine Mucus 2+ /HPF (None Seen); Urine Protein 1+ (Negative); Urine RBC <5 /HPF (None Seen); Urine Urobilinogen 1+ (Normal); Urine pH 5.5 (5.0-7.0)
--- NOTE | 2023-07-10 21:42 | RAD REPORT ---
EXAM DESCRIPTION: CT - Head C Spine Cap Wo Con - 07/10/2023 9:18 pm CLINICAL HISTORY: Trauma, head and neck injury. Chest, abdomen and pelvis pain. fall, found down COMPARISON: No comparisons TECHNIQUE: CT head without contrast. CT cervical spine without contrast with coronal and sagittal reformatted images. CT chest, abdomen and pelvis without contrast with coronal and sagittal reformatted images of the [facility] [place]. All CT scans are performed using dose optimization technique as appropriate and may include automated exposure control or mA/KV adjustment according to patient size. FINDINGS: CT HEAD WITHOUT CONTRAST: No intracranial hemorrhage, hydrocephalus or extra-axial fluid collection. Moderate generalized brain atrophy is present with advanced periventricular and deep white matter chronic microvascular ischemi c changes. No areas of brain edema or midline shift. Left vertebral atherosclerosis. The paranasal sinuses and mastoids are clear. The calvarium is intact. CT CERVICAL SPINE WITHOUT CONTRAST: No fracture or subluxation. Moderate mid and lower cervical degenerative changes. The prevertebral so ft tissues are normal in thickness. CT CHEST, ABDOMEN, PELVIS WITHOUT CONTRAST: NOTE: Lack of contrast is a significant limitation in the assessment of trauma related findings. Spec ifically, solid organ, vascular and bowel evaluation is significantly limited. Moderate diffuse COPD.Thickening of the esophagus is seen with a small hiatal hernia.No pneumothorax or pericardial/pleural fluid. No evidence of intra-abdominal visceral injury, free fluid or free air is seen within the above detai led limitations. No concerning pelvic findings. No fractures. Moderate lower lumbar degenerative changes. IMPRESSION: Negative for acute traumatic findings within the above detailed limitations.
[2023-07-10] MEDS ORDERED: AMIODARONE HCL 150 MG/3 ML INJ IV ONE (21:47)
[2023-07-10] MEDS ORDERED: D5W 100 ML IV ONE (21:48)
[2023-07-10 21:54] LABS: Blood Morphology Comment NOT SEEN (NOT SEEN); Platelet Estimate INCR; White Blood Cell Scan OK (OK)
[2023-07-10] MEDS ORDERED: AMIODARONE IN DEXTROSE,ISO-OSM 360 MG/200 ML BAG IV ONE (21:55)
[2023-07-10 22:49] LABS: Albumin 2.3 g/dL (3.4-5.0); Bilirubin Direct 0.5 mg/dL (0-0.2); Bilirubin Indirect, Calculated 0.8 mg/dL (0.2-0.8); Bilirubin Total 1.3 mg/dL (0.2-1.0); Magnesium 2.5 mg/dL (1.6-2.4); Potassium 4.2 mEq/L (3.5-5.1); Protein, Total 5.7 g/dL (6.4-8.2); Thyroid Stimulating Hormone 1.11 uIU/mL (0.358-3.740)
--- NOTE | 2023-07-10 22:55 | ER ---
Nurse's Notes [facility] Name: Eriberto Feliciano Jr Age: 83 yrs Sex: Male : 1940 Arrival Date: 07/10/2023 Time: 19:49 Bed 4 Private MD: Diagnosis: Unspecified atrial fibrillation;Weakness;Fall on same level, unspecified Presentation: 07/10 19:50 Chief complaint: EMS states: Patient was found laying prone by daughter. Per EMS cm10 report, patient tripped and fell 4 days ago and has been on the ground since. Patient noted to have sores to right cheek, right chest, right hip, bilateral knees and left big toe. Pt arrived covered in feces. Pt A\T\Ox4, upon arrival to the ED. Pt was found to be tachycardic, hypotensive. Coronavirus screen: Client denies travel out of the [place] in the last 14 days. Ebola Screen: Patient denies travel to an Ebola-affected area in the 21 days before illness onset. No symptoms or risks identified at this time. Initial Sepsis Screen: Does the patient meet any 2 criteria? Temp <36.0*C (96.8*F)) or > 38.3*C (100.9*F). HR > 90 bpm. Does the patient have a suspected source of infection? Yes: Skin breakdown/wound If YES to both, name of provider notified: Jonnie David MD. Risk Assessment: Do you want to hurt yourself or someone else? Patient reports no desire to harm self or others. Onset of symptoms was July 10, 2023. 19:50 Method Of Arrival: EMS: [facility] cm10 19:50 Acuity: EMMANUELLE 2 cm10 19:50 Care prior to arrival: Medication(s) given: Normal saline infusion, 500 mL, IV cm10 initiated. 18 GA, in the right antecubital area. Triage Assessment: 20:34 General: Appears in no apparent distress. comfortable, Behavior is calm, cooperative. cm10 Pain: Complains of pain in Right side of body. EENT: No deficits noted. Neuro: No deficits noted. Level of Consciousness is awake, alert, obeys commands, Oriented to person, place, time, situation. Cardiovascular: No deficits noted. Rhythm is atrial fibrillation. Respiratory: No deficits noted. Airway is patent Respiratory effort is even, unlabored, Respiratory pattern is regular, symmetrical. GI: GI: No deficits noted. : No deficits noted. Derm: Skin has lesions on right cheek, right chest, right hip, bilateral knees, left big toe Skin is dry, Skin is mottled, Skin temperature is cold. Historical: - Allergies: 20:34 No Known Allergies; cm10 - PMHx: 20:34 Esophageal Cancer; cm10 - Immunization history:: Adult Immunizations unknown. - Social history:: Smoking status: Patient/guardian denies using tobacco. Screenin:59 [facility] ED Fall Risk Assessment (Adult) History of falling in the last 3 months, cm10 including since admission Yes- fall prone (multiple falls) (3 pts) Confusion or Disorientation No (0 pts) Intoxicated or Sedated No (0 pts) Impaired Gait Yes (1 pt) Mobility Assist Device Used Yes (1 pt) Altered Elimination Yes (1 pt) Score/Fall Risk Level 3 or more points = High Risk Oriented to surroundings, Maintained a safe environment, Educated pt \T\ family on fall prevention, incl call for assistance when getting out of bed, Assessed \T\ reinforced patient's understanding of fall precautions, Hourly rounding (assess needs \T\ fall precautionary measures) done. Abuse screen: Denies threats or abuse. Denies injuries from another. Nutritional screening: No deficits noted. Tuberculosis screening: No symptoms or risk factors identified. Assessment: 20:20 Reassessment: Pt cleaned, placed in gown, linens changed and guerra catheter established.cm10 20:37 Reassessment: See triage note. cm10 22:07 Reassessment: Patient appears in no apparent distress at this time. No changes from cm10 previously documented assessment. Patient and/or family updated on plan of care and expected duration. Pain level reassessed. Patient is alert, oriented x 3, equal unlabored respirations, skin warm/dry/pink. 22:55 Reassessment: Bear hugger removed at this time. cm10 23:12 Reassessment: Pt transferred to hospital bed at this time. cm10 23:35 Reassessment: Patient appears in no apparent distress at this time. Patient and/or cm10 family updated on plan of care and expected duration. Pain level reassessed. Patient states symptoms have improved. Neuro: No deficits noted. Villarreal Agitation-Sedation Scale (RASS): 0 - Alert and Calm Level of Consciousness is awake, alert, obeys commands, Oriented to person, place, time, situation. Derm: Skin temperature is warm. 23:45 Reassessment: EKG repeated at this time. Pt rhythm now normal sinus rhythm. cm10 23:46 Cardiovascular: Rhythm is sinus rhythm. cm10 07/11 00:08 Reassessment: Attempted to give report. Nurse not available to take report at this time.cm10 Vital Signs: 07/10 19:50 BP 96 / 63; Pulse 145; Resp 18 S; Temp 93.6(Ca); Pulse Ox 100% ; Weight 48 kg; cm10 20:47 BP 103 / 67; Pulse 150; Resp 24; Temp 95.6(Ca); Pulse Ox 100% ; cm10 21:27 BP 101 / 67; Pulse 149; Resp 18 S; Temp 96.2(Ca); Pulse Ox 100% on R/A; cm10 22:08 BP 121 / 63; Pulse 126; Resp 17 S; Temp 97.3(Ca); Pulse Ox 93% on R/A; cm10 22:55 Temp 98.6(Ca); cm10 23:30 BP 99 / 67; Pulse 105; Resp 19; Temp 99.5(Ca); Pulse Ox 94% ; cm10 ED Course: 19:50 EKG completed in triage. Results shown to MD. cm10 19:52 Patient arrived in ED. rv1 19:52 Jonnie David MD is Attending Physician. kdr 20:20 Guerra cath inserted, using sterile technique, 16 Fr., by nj, balloon inflated, to cm10 gravity drainage, urine specimen collected. returned tony urine. Patient tolerated well. Maintain EMS IV. Dressing intact. Good blood return noted. Site clean \T\ dry. Gauge \T\ site: 18g RAC. 20:20 Thermoregulation: warm blanket given to patient. Shaye blanket applied. cm10 20:27 Felisha Pinto, RN is Primary Nurse. cm10 20:34 Triage completed. cm10 20:37 Arm band placed on Patient placed in an exam room, on a stretcher, on cardiac specialist, cm10 on pulse oximetry. 20:38 Patient has correct armband on for positive identification. Placed in gown. Bed in low cm10 position. Call light in reach. Side rails up X2. Provided Education on: ER process and procedures. . Client placed on continuous cardiac and pulse oximetry monitoring. NIBP monitoring applied. Warm blanket given. 20:55 Basic Metabolic Panel Sent. cm10 20:55 CBC with Diff Sent. cm10 20:55 LFT's Sent. cm10 20:55 Magnesium Sent. cm10 20:55 NT PRO-BNP Sent. cm10 20:55 Troponin HS Sent. cm10 20:55 TSH Sent. cm10 20:56 CPK Sent. cm10 20:56 Lactate w/ 2H reflex if indic. Sent. cm10 20:59 Inserted saline lock: 18 gauge in left forearm, using aseptic technique. Blood cm10 collected. 21:01 XRAY Chest (1 view) In Process Unspecified. EDMS 21:[address] cm10 21:20 CT Traumagram (Head C Spine CAP wo con) In Process Unspecified. EDMS 21:[address] back from [address]. cm10 22:53 Eva Bolaños MD is Hospitalizing Provider. kdr 23:12 No provider procedures requiring assistance completed. Patient admitted, IV remains in cm10 place. 23:46 EKG done, by ED staff, reviewed by Jonnie David MD. cm10 Administered Medications: 20:56 Drug: NS 0.9% IV (30 ml/kg) 30 ml/kg IV at bolus once; Sepsis Protocol Route: IV; Rate: cm10 bolus; Site: left forearm; 21:31 Follow up: IV Status: Completed infusion; IV Intake: 1440ml cm10 21:32 Follow up: Response: No adverse reaction cm10 21:53 Drug: amiodarone IVPB 150 mg 100 ml IVPB once over 10 mins; (mix in D5W) Volume: 100 cm10 ml; Route: IVPB; Infused Over: 10 mins; Site: right antecubital; 22:06 Follow up: Response: No adverse reaction; Cardiac rhythm is unchanged; IV Status: cm10 Completed infusion; IV Intake: 100ml 22:06 Drug: amiodarone IVPB 900 mg, D5W IV 500 ml IVPB at 1 mg/min continuous; for 6 hrs, cm10 then change to 0.5 mg/min Route: IVPB; Rate: 1 mg/min; Site: right antecubital; Medication: 20:59 VIS not applicable for this client. cm10 Intake: 21:31 IV: 1440ml; Total: 1440ml. cm10 22:06 IV: 100ml; Total: 1540ml. cm10 Outcome: 22:54 Decision to Hospitalize by Provider. kdr 07/11 00:43 Admitted to ICU accompanied by nurse, via stretcher, room 5, Report called to DIANE meier RN Condition: stable Instructed on the need for admit, 01:30 Patient left the ED. jb4 Signatures: Dispatcher [employer] EDMS Jonnie David MD MD kdr Erwin Ricks RN RN jb4 Yohan Sahu RN RN Jannette Boone rv1 Felisha Pinto RN RN cm10 Corrections: (The following items were deleted from the chart) 07/10 21:12 20:47 BP 103 / ???; Pulse 150bpm; Resp 24bpm; Pulse Ox 100%; Temp 95.6F Catheter; cm10 cm10 23:35 23:12 Reassessment: Pt admitted to ER hold. See charting in [facility]. cm10 cm10 23:35 23:12 Condition: stable cm10 cm10 23:35 23:12 Admitted to ER Hold. Please see [facility] for further documentation. cm10 cm10 23:35 23:12 Instructed on the need for admit, cm10 cm10
--- NOTE | 2023-07-10 22:55 | EDPHYS ---
Physician Documentation [facility] Name: Eriberto Feliciano Jr Age: 83 yrs Sex: Male : 1940 Arrival Date: 07/10/2023 Time: 19:49 Bed 4 Private MD: ED Physician Jonnie David HPI: 07/10 20:12 This 83 yrs old Male presents to ER via Unassigned with complaints of fall and prone kdr for 4 days. 20:12 Patient reportedly fell about 4 days ago. Daughter states she has been trying to reach kdr the patient for about the last 4 days without success. Finally tonight she drove down to the patient's house and noted that he was on the floor. Patient apparently been there for 4 days. Patient has no focal complaint however he clearly has pressure sores on his face chest abdomen and knees. Patient has a history of atrial fibrillation and esophageal cancer. Daughter relates that he is lost 55 pounds since onset of his diagnosis of cancer. Patient is alert and oriented and talking appropriately.. Onset: The symptoms/episode began/occurred gradually, 4 day(s) ago. Severity of symptoms: At their worst the symptoms were mild moderate just prior to arrival, in the emergency department the symptoms are unchanged. The patient has not experienced similar symptoms in the past. The patient has not recently seen a physician. Historical: - Allergies: 20:34 No Known Allergies; cm10 - PMHx: 20:34 Esophageal Cancer; cm10 - Immunization history:: Adult Immunizations unknown. - Social history:: Smoking status: Patient/guardian denies using tobacco. ROS: 20:12 Constitutional: Negative for fever, chills, and weight loss, Eyes: Patient clearly had kdr some head trauma and probably necrotic skin from being immobile on his face for a period of time. Patient has swelling around the right orbit with some ecchymosis that is yellowish in color. Patient otherwise has no obvious head trauma or injury Neck: Negative for injury, pain, and swelling, 20:12 Respiratory: Negative for shortness of breath, cough, wheezing, and pleuritic chest pain, Back: Negative for injury and pain, 20:12 Cardiovascular: Positive for palpitations, 20:12 Skin: Positive for ecchymosis, erythema, ulceration, Patient has multiple pressure sores on his face abdomen chest and knees., Exam: 20:12 Constitutional: This is a well developed, well nourished patient who is awake, alert, kdr and in no acute distress. Head/Face: Normocephalic, patient has the above-mentioned swelling around the right orbit with ecchymosis and a pressure sore to the right lateral face Eyes: Pupils equal round and reactive to light, extra-ocular motions intact. Lids and lashes normal. Conjunctiva and sclera are non-icteric and not injected. Cornea within normal limits. Periorbital areas with no swelling, redness, or edema. Chest/axilla: Normal chest wall appearance and motion except for several lesions from the pressure on his chest wall over the course of a few days. There is mild tenderness across his chest and around the lesions. But otherwise with no deformity. Respiratory: Lungs have equal breath sounds bilaterally, clear to auscultation and percussion. No rales, rhonchi or wheezes noted. No increased work of breathing, no retractions or nasal flaring. Back: No spinal tenderness. No costovertebral tenderness. Full range of motion. MS/ Extremity: Pulses equal, no cyanosis. Neurovascular intact. Full, normal range of motion. Neuro: Awake and alert, GCS 15, oriented to person, place, time, and situation. Cranial nerves II-XII grossly intact. Motor strength 5/5 in all extremities. Sensory grossly intact. Cerebellar exam normal. Normal gait. Psych: Awake, alert, with orientation to person, place and time. Behavior, mood, and affect are within normal limits. 20:12 Abdomen/GI: Bowel sounds: active, diminished, 20:12 Skin: Multiple skin lesions secondary to pressure necrosis. Patient otherwise has very mottled skin and suspected hypothermia. Vital Signs: 19:50 BP 96 / 63; Pulse 145; Resp 18 S; Temp 93.6(Ca); Pulse Ox 100% ; Weight 48 kg; cm10 20:47 BP 103 / 67; Pulse 150; Resp 24; Temp 95.6(Ca); Pulse Ox 100% ; cm10 21:27 BP 101 / 67; Pulse 149; Resp 18 S; Temp 96.2(Ca); Pulse Ox 100% on R/A; cm10 22:08 BP 121 / 63; Pulse 126; Resp 17 S; Temp 97.3(Ca); Pulse Ox 93% on R/A; cm10 22:55 Temp 98.6(Ca); cm10 23:30 BP 99 / 67; Pulse 105; Resp 19; Temp 99.5(Ca); Pulse Ox 94% ; cm10 MDM: 22:54 Patient medically screened. kdr 22:54 Data reviewed: vital signs, nurses notes, lab test result(s), radiologic studies. kdr 23:02 ED course: Patient remained critically ill but stable in the ED. Responded well to the kdr amiodarone. This pressure remained reasonable at around 100-120 systolic. Patient was admitted to the ICU under the care of the hospitalist team in fair condition. 07/10 19:56 Order name: Basic Metabolic Panel; Complete Time: 22:50 kdr 07/10 19:56 Order name: CBC with Diff; Complete Time: 22:19 kdr 07/10 19:56 Order name: LFT's; Complete Time: 22:50 kdr 07/10 19:56 Order name: Magnesium; Complete Time: 22:50 kdr 07/10 19:56 Order name: NT PRO-BNP; Complete Time: 22:50 kdr 07/10 19:56 Order name: Troponin HS; Complete Time: 22:50 kdr 07/10 19:56 Order name: Lactate w/ 2H reflex if indic.; Complete Time: 22:50 kdr 07/10 19:56 Order name: Blood Culture Adult (2) kdr 07/10 19:56 Order name: CPK; Complete Time: 22:50 kdr 07/10 19:57 Order name: TSH; Complete Time: 22:50 la1 07/10 20:56 Order name: Urinalysis w/ reflexes; Complete Time: 21:28 cm10 07/10 21:54 Order name: CBC Smear Scan; Complete Time: 22:19 EDMS 07/10 19:56 Order name: XRAY Chest (1 view); Complete Time: 21:07 kdr 07/10 20:03 Order name: CT Traumagram (Head C Spine CAP wo con); Complete Time: 21:49 la1 07/10 19:56 Order name: EKG; Complete Time: 19:57 kdr 07/10 19:56 Order name: Cardiac monitoring; Complete Time: 20:55 kdr 07/10 19:56 Order name: EKG - Nurse/Tech; Complete Time: 20:24 kdr 07/10 19:56 Order name: IV Saline Lock; Complete Time: 20:55 kdr 07/10 19:56 Order name: Labs collected and sent; Complete Time: 20:55 kdr 07/10 19:56 Order name: O2 Per Protocol; Complete Time: 20:55 kdr 07/10 19:56 Order name: O2 Sat Monitoring; Complete Time: 20:55 kdr 07/10 19:56 Order name: Butler: temp prob; Complete Time: 20:55 kdr 07/10 21:30 Order name: Misc. Order: RECOLLECT MOORE AND GREEN TOP; Complete Time: 22:06 rv1 Administered Medications: 20:56 Drug: NS 0.9% IV (30 ml/kg) 30 ml/kg IV at bolus once; Sepsis Protocol Route: IV; Rate: cm10 bolus; Site: left forearm; 21:31 Follow up: IV Status: Completed infusion; IV Intake: 1440ml cm10 21:32 Follow up: Response: No adverse reaction cm10 21:53 Drug: amiodarone IVPB 150 mg 100 ml IVPB once over 10 mins; (mix in D5W) Volume: 100 cm10 ml; Route: IVPB; Infused Over: 10 mins; Site: right antecubital; 22:06 Follow up: Response: No adverse reaction; Cardiac rhythm is unchanged; IV Status: cm10 Completed infusion; IV Intake: 100ml 22:06 Drug: amiodarone IVPB 900 mg, D5W IV 500 ml IVPB at 1 mg/min continuous; for 6 hrs, cm10 then change to 0.5 mg/min Route: IVPB; Rate: 1 mg/min; Site: right antecubital; Disposition Summary: 07/10/23 22:54 Hospitalization Ordered Notes: Hospitalization Status: Inpatient Admission kdr Provider: Eva Bolaños Location: Intensive Care Unit kdr Condition: Serious kdr Problem: new kdr Symptoms: have improved kdr Bed/Room Type: Standard kdr Room Assignment: 5-(07/11/23 00:03) Diagnosis - Unspecified atrial fibrillation kdr - Weakness kdr - Fall on same level, unspecified kdr Forms: - Medication Reconciliation Form kdr - SBAR form kdr - Leadership Thank You Letter kdr Critical care time excluding procedures: 23:02 Critical care time: Bedside Care: 20 minutes, Consultation: 10 minutes, Family kdr Intervention: 10 minutes. Total time: 40 minutes Signatures: Dispatcher [employer] EDMS Jonnie David MD MD kdr Perry Engle, CHEMICAL APPLICATOR-C CHEMICAL APPLICATOR-Cla1 Julissa Sierra RN RN cg Jannette Ashby rv1 Felisha Pinto RN RN cm10 Corrections: (The following items were deleted from the chart) 20:08 19:57 Head Brain Wo Cont+CT.RAD.BRZ ordered. EDMS EDMS 07/11 00:03 07/10 22:54 kdr cg
--- NOTE | 2023-07-10 23:18 | P.HP ---
Certification for Inpatient Patient admitted to: Inpatient With expected LOS: >2 Midnights Patient will require the following post-hospital care: None Practitioner: I am a practitioner with admitting privileges, knowledge of patient current condition, hospital course, and medical plan of care. Services: Services provided to patient in accordance with Admission requirements found in Title 42 Section 412.3 of the Code of Federal Regulations Patient History Date of Service: 07/10/23 Reason for admission: A-fib RVR, rhabdomyolysis, fall History of Present Illness: 83-year-old male with history of esophageal cancer diagnosed 1 month ago, previous diabetes type [id number] presents emerged department with chief complaint fall. Reports having mechanical fall about 4 days ago and being unable to get up since then lying in the prone position. His daughter reports she has been calling him to be answered today she will check on him found him lying in a prone position on the ground. He was transported emergency department initially found to be in A-fib RVR with a rate of 150 hypothermic with a temperature of 93.6. His pressure sores to the right side of his face, chest wall, right hip, bilateral knees. He is awake, alert oriented x4 his labs were significant for white blood cell 17.6 hemoglobin 1545.9 platelets 412 creatinine 1.7 GFR 40 glucose 226 lactic acid 3.4 CPK 830 troponin 64.0 BNP 7888 no source of infection identified thus far. Patient given IV fluids, started on IV amiodarone for A-fib RVR will need to be admitted to the ICU for further management. Discussed CODE STATUS with patient, DNR placed. - Past Medical/Surgical History -: Esophageal cancer -: Diabetes mellitus type 2 -: Vein surgery Psychosocial/ Personal History: Lives at home alone - Family History Family History: Reviewed- Non-Contributory - Social History Smoking Status: Never smoker Alcohol use: No CD- Drugs: No Caffeine use: Yes Place of Residence: Home Review of Systems Unremarkable Physical Examination - Physical Exam General: Alert, In no apparent distress, Oriented x3, Cachectic HEENT: Atraumatic, PERRLA, Mucous membr. moist/pink, EOMI, Sclerae nonicteric Neck: Supple, 2+ carotid pulse no bruit, No LAD, Without JVD or thyroid abnormality Respiratory: Clear to auscultation bilaterally, Normal air movement Cardiovascular: Normal S1 S2, Irregular heart rate/rhythm (Af rvr) Capillary refill: <2 Seconds Gastrointestinal: Normal bowel sounds, No tenderness Musculoskeletal: No tenderness Integumentary: No rashes Neurological: Normal gait, Normal speech, Normal strength at 5/5 x4 extr, Normal tone, Normal affect Lymphatics: No axilla or inguinal lymphadenopathy - Studies Laboratory Data (last 24 hrs) 07/10/23 07/10/23 21:57 20:51 WBC 17.60 H Hgb 15.0 Hct 45.9 Plt Count 412 H Sodium 142 Potassium 4.2 BUN 66 H Creatinine 1.70 H Glucose 226 H Magnesium 2.5 H Total Bilirubin 1.3 H AST 28 ALT 21 Alkaline Phosphatase 47 Assessment and Plan - Plan Assessment: Fall, prolonged immobilization, rhabdomyolysis Acute kidney injury Atrial fibrillation with rapid ventricular response Elevated troponin Multiple pressure wounds-right face, chest wall, right hip, bilateral knees, sacral Plan: Fall, prolonged immobilization, rhabdomyolysis Acute kidney injury Continue IV fluids, nephrology consult. PT consult, may need placement at discharge, director social service to be consulted. Atrial fibrillation with rapid ventricular response Continue IV amiodarone at this time, rate has improved blood pressure borderline. Questionable history of A-fib in the past not on any blood thinners at home. Therapy Lovenox ordered. Elevated troponin Denies chest pain likely demand ischemia, trend troponins, monitor on telemetry. Multiple pressure wounds-right face, chest wall, right hip, bilateral knees, sacral Wound healing consult, PT consult, director social service consult. DVT PPX: Therapeutic Lovenox Code status: Full Discharge Plan: Home Plan to discharge in: Greater than 2 days - Advance Directives Does patient have a Living Will: No Does patient have a Durable POA for Healthcare: No - Code Status/Comfort Care Code Status Assessed: Yes (DNR) Critical Care: No Time Spent Managing Pts Care (In Minutes): 70
[2023-07-11] MEDS ORDERED: NA CHLORIDE 0.9% 1,000 ML IV SCH (01:30)
[2023-07-11] MEDS ORDERED: ACETAMINOPHEN 500 MG TAB PO PRN (01:30)
[2023-07-11] MEDS ORDERED: FENTANYL CITR 100 MCG/2 ML IV PRN (01:30)
[2023-07-11] MEDS ORDERED: NA CHLORIDE 0.9% 1,000 ML ONE (01:44)
[2023-07-11 02:42] LABS: Absolute Lymphocytes (CBC) 0.7 K/uL (0.7-4.9); Hematocrit 36.9 % (39.6-49.0); Lymphocytes % 4.8 % (15.3-44.8); MCV 86.4 fL (80-100); MPV 7.2 fL (7.6-11.3); Platelets 333 thou/uL (152-406); RBC Red Blood Cell Count 4.27 M/uL (4.33-5.43)
[2023-07-11 02:53] LABS: Albumin 2.4 g/dL (3.4-5.0); Bilirubin Total 0.9 mg/dL (0.2-1.0); Potassium 3.8 mEq/L (3.5-5.1); Protein, Total 5.7 g/dL (6.4-8.2)
[2023-07-11 02:57] LABS: Troponin High Sensitivity 69.4 pg/mL (<58.9)
[2023-07-11] MEDS: AMIODARONE IN DEXTROSE,ISO-OSM 360 MG/200 ML BAG IV SCH ×2 (03:56→17:07)
--- NOTE | 2023-07-11 06:51 | P.PN ---
Date of Service: 07/11/23 Subjective: Feeling better today denies any pains; breathing is okay been feeling weak recently converted into normal sinus rhythm prior to coming to ICU; +rate improved ROS: 10 point ROS as noted above, otherwise negative Physical Exam: GEN: Alert, oriented, NAD HEENT: Normal conjunctiva, sclera anicteric CV: Regular rate and rhythm, no edema Pulm: Nonlabored respirations on room air ABD: Soft, nontender, nondistended Integumentary: multiple pressure wounds - right face, chest wall, right hip, b/l knees, sacral Neuro: Normal speech, normal affect; generalized weakness Butler in place vitals reviewed Problem List: Fall, prolonged immobilization, rhabdomyolysis JYOTI Atrial fibrillation with RVR NSTEMI h/o esophageal cancer Multiple pressure wounds-right face, chest wall, right hip, bilateral knees, sacral Severe protein calorie malnutrition Plan: Fall, prolonged immobilization, rhabdomyolysis JYOTI CT head/chest/abd (07/10): Negative for acute traumatic findings within the above detailed limitations. Thickening of the esophagus is seen with a small hiatal hernia Nephrology consulted Continue IV fluids PT/ST consult, may need placement at discharge, geriatric social worker to be consulted. pt states he would like to avoid facilities due to bad experiences in past CPK improving Atrial fibrillation with RVR NSTEMI Questionable history of A-fib in the past; not on any blood thinners at home. trend troponins - mildly elevated, monitor on telemetry. Denies chest pain likely demand ischemia Cardiology consulted Continue IV amiodarone echo ordered converted into sinus rhythm before coming up to ICU Multiple pressure wounds-right face, chest wall, right hip, bilateral knees, sacral Wound care consult Severe protein calorie malnutrition tire service technician consult VTE: Lovenox Code: DNR Dispo: ss/cm consulted; may need placement; PT to eval
[2023-07-11] MEDS: ENOXAPARIN 60 MG/0.6 ML SQ SCH (08:06)
[2023-07-11] MEDS ORDERED: GLUCAGON 1 MG/VIAL IM PRN (10:16)
[2023-07-11] MEDS ORDERED: D50W 25 GM/50 ML SYRINGE IV PRN (10:16)
[2023-07-11] MEDS ORDERED: D10W 125 ML IV PRN (10:21)
[2023-07-11] MEDS: NACHLORIDE 0.45% 1,000 ML IV SCH ×2 (10:26→17:08)
[2023-07-11] MEDS: INSULIN REGULAR (HUMAN) 100 UNIT/ML SQ SCH ×3 (11:30→21:00)
[2023-07-11] MEDS ORDERED: AMIODARONE HCL 900 MG in Dextrose 5%-Water 482 ML IV SCH (14:00)
--- NOTE | 2023-07-11 17:02 | EKG ---
Test Date: 2023-07-10 Test Time: 23:42:25 Package Sealer: SAMUEL MEASUREMENT RESULTS: Intervals: Rate: 84 WA: 162 QRSD: 96 QT: 400 QTc: 472 [place]: P: 82 WA: 162 QRS: 97 T: 80 INTERPRETIVE STATEMENTS: Normal sinus rhythm Rightward axis Anterior infarct, age undetermined Abnormal ECG Compared to ECG 07/10/2023 19:56:00 Atrial fibrillation no longer present Myocardial infarct finding still present Electronically Signed On 07-11-23 17:01:57 CDT by Sami Frausto
--- NOTE | 2023-07-11 17:03 | EKG ---
Test Date: 2023-07-10 Test Time: 19:56:00 Frame Feeder: SAMUEL MEASUREMENT RESULTS: Intervals: Rate: 142 [place]: QRSD: 80 QT: 276 QTc: 424 [place]: P: IN: QRS: 94 T: 66 INTERPRETIVE STATEMENTS: Atrial fibrillation with rapid ventricular response Rightward axis Septal infarct, age undetermined Abnormal ECG Compared to ECG 09/02/2021 10:09:29 Myocardial infarct finding now present Sinus rhythm no longer present Atrial premature complex(es) no longer present Electronically Signed On 07-11-23 17:02:01 CDT by Sami Frausto
--- NOTE | 2023-07-11 20:36 | P.CNS ---
Date of Consult: 07/11/23 Reason for Consult: CKD Requesting Physician: Stiven Alexander Chief Complaint: A-fib RVR, rhabdomyolysis, fall History of Present Illness: 83-year-old male with history of esophageal cancer diagnosed 1 month ago, previous diabetes type [id number] presents emerged department with chief complaint fall. Reports having mechanical fall about 4 days ago and being unable to get up since then lying in the prone position. His daughter reports she has been calling him to be answered today she will check on him found him lying in a prone position on the ground. He was transported emergency department initially found to be in A-fib RVR with a rate of 150 hypothermic with a temperature of 93.6. His pressure sores to the right side of his face, chest wall, right hip, bilateral knees. He is awake, alert oriented x4 his labs were significant for white blood cell 17.6 hemoglobin 1545.9 platelets 412 creatinine 1.7 GFR 40 glucose 226 lactic acid 3.4 CPK 830 troponin 64.0 BNP 7888 no source of infection identified thus far. Patient given IV fluids, started on IV amiodarone for A-fib RVR will need to be admitted to the ICU for further management. Discussed CODE STATUS with patient, DNR placed. [id number] 20:12 This 83 yrs old Male presents to ER via Unassigned with complaints of fall and prone kdr for 4 days. 20:12 Patient reportedly fell about 4 days ago. Daughter states she has been trying to reach kdr the patient for about the last 4 days without success. Finally tonight she drove down to the patient's house and noted that he was on the floor. Patient apparently been there for 4 days. Patient has no focal complaint however he clearly has pressure sores on his face chest abdomen and knees. Patient has a history of atrial fibrillation and esophageal cancer. Daughter relates that he is lost 55 pounds since onset of his diagnosis of cancer. Patient is alert and oriented and talking appropriately.. Onset: The symptoms/episode began/occurred gradually, 4 day(s) ago. Severity of symptoms: At their worst the symptoms were mild moderate just prior to arrival, in the emergency department the symptoms are unchanged. The patient has not experienced similar symptoms in the past. The patient has not recently seen a physician. Allergies No Known Allergies Allergy (Verified 07/11/23 01:30) Home medications list reviewed: Yes Home Medications: NK [No Home Meds] 07/11/23 - Past Medical/Surgical History Diabetic: Yes -: Esophageal cancer -: Diabetes mellitus type 2 -: Vein surgery Psychosocial/ Personal History: Lives at home alone - Family History Mother Notes: mom of emphysema - Social History Alcohol use: No CD- Drugs: No Caffeine use: Yes Place of Residence: Home Review of Systems 10-point ROS is otherwise unremarkable General: Weakness Integumentary: Lesions Physical Examination Temp Pulse Resp BP Pulse Ox 97.5 F 85 22 H 118/65 98 07/11/23 16:00 07/11/23 18:00 07/11/23 18:00 07/11/23 18:00 07/11/23 18:00 General: In no apparent distress, Cachectic HEENT: Atraumatic Neck: Supple Respiratory: Clear to auscultation bilaterally Cardiovascular: No edema Gastrointestinal: Soft and benign, Non-distended Musculoskeletal: No clubbing, No contractures Integumentary: No cyanosis, Skin lesion Neurological: Normal speech Laboratory Data (last 24 hrs) 07/10/23 07/10/23 21:57 20:51 WBC 17.60 H Hgb 15.0 Hct 45.9 Plt Count 412 H Sodium 142 Potassium 4.2 BUN 66 H Creatinine 1.70 H Glucose 226 H Magnesium 2.5 H Total Bilirubin 1.3 H AST 28 ALT 21 Alkaline Phosphatase 47 Imagings Data: [id number] EXAM DESCRIPTION: CT - Head C Spine Cap Wo Con - 07/10/2023 9:18 pm CLINICAL HISTORY: Trauma, head and neck injury. Chest, abdomen and pelvis pain. fall, found down COMPARISON: No comparisons TECHNIQUE: CT head without contrast. CT cervical spine without contrast with coronal and sagittal reformatted images. CT chest, abdomen and pelvis without contrast with coronal and sagittal reformatted images of the spine. All CT scans are performed using dose optimization technique as appropriate and may include automated exposure control or mA/KV adjustment according to patient size. FINDINGS: CT HEAD WITHOUT CONTRAST: No intracranial hemorrhage, hydrocephalus or extra-axial fluid collection. Moderate generalized brain atrophy is present with advanced periventricular and deep white matter chronic microvascular ischemic changes. No areas of brain edema or midline shift. Left vertebral atherosclerosis. The paranasal sinuses and mastoids are clear. The calvarium is intact. CT CERVICAL SPINE WITHOUT CONTRAST: No fracture or subluxation. Moderate mid and lower cervical degenerative changes. The prevertebral soft tissues are normal in thickness. CT CHEST, ABDOMEN, PELVIS WITHOUT CONTRAST: NOTE: Lack of contrast is a significant limitation in the assessment of trauma related findings. Specifically, solid organ, vascular and bowel evaluation is significantly limited. Moderate diffuse COPD.Thickening of the esophagus is seen with a small hiatal hernia.No pneumothorax or pericardial/pleural fluid. No evidence of intra-abdominal visceral injury, free fluid or free air is seen within the above detailed limitations. No concerning pelvic findings. No fractures. Moderate lower lumbar degenerative changes. IMPRESSION: Negative for acute traumatic findings within the above detailed limitations. [id number] EXAM DESCRIPTION: RAD - Chest Single View - 07/10/2023 9:00 pm CLINICAL HISTORY: fall Chest pain. FINDINGS: Portable technique limits examination quality. The lungs are grossly clear. The heart is normal in size. No displaced fractures. IMPRESSION: No acute intrathoracic process suspected. Conclusions/Impression: CKD IIIb with Proteinuria -No NSAIDs -Change IVF 1/2NS Rhabdomyolysis, mild -Change IVF 1/2NS DM II with CKD -RISS Hypoalbuminemia -Recommend protein supplmentation Anemia in chronic illness -Monitor H&H Multiple skin ulcers -Wound care as ordered Thank you kindly for the consultation
[2023-07-11] MEDS: GLUCERNA SHAKE 237 ML CAN PO SCH (21:00)
[2023-07-11] MEDS: JUVEN PACKET PO SCH (21:00)
[2023-07-11] MEDS: AMIODARONE HCL 200 MG TAB PO SCH (21:20)
--- NOTE | 2023-07-11 21:46 | CON ---
Date of Consultation: 07/11/2023 Reason For Consultation: Atrial fibrillation with rapid ventricular response. History Of Present Illness: This is an 83-year-old male, history of esophageal cancer diagnosed abou t a month ago, diabetes, presented to the hospital after a mechanical fall. He could not get up. Di d not have any syncope. In the ER, was found to be in atrial fibrillation with rapid ventricular res ponse. Started on amiodarone drip and converted to sinus rhythm and he is completely asymptomatic th is morning. No chest pain or shortness of breath. Past Medical History: As outlined above in HPI. Medications: Refer to reconciliation sheet for detailed list. Allergies: NO KNOWN DRUG ALLERGIES. Family History: No premature coronary artery disease or cancer. Social History: Does not smoke or drink. Does not use any drugs. Review of Systems: All systems reviewed. They were negative except what is mentioned in HPI. Physical Examination: Vital Signs: Reviewed. Head and Neck: Pupils are equal, reactive to light. Intact eye movements. No JVD. No cervical lym phadenopathy. Neck: Supple. Thyroid is not enlarged. Lungs: Clear to auscultation bilaterally. No rhonchi, wheezing, or crackles. No accessory muscle u se. HEART: Regular rate and rhythm. No extra sounds. Abdomen: Soft, nontender. Bowel sounds positive. No organomegaly. No masses or hernia. No rigidi ty or rebound. Extremities: No clubbing, cyanosis. Intact pulses. Skin: No rash. Neurologic: Alert, awake, oriented x3. No gross focal deficits appreciated. Investigations: BUN 73, creatinine 1.8. Troponin is peaked at 76. Assessment/recommendations: 1.Atrial fibrillation with rapid ventricular response, converted to sinus rhythm. Switch to amiodar one 200 mg by mouth twice a day and if no surgery is planned, then also recommend Eliquis 5 mg twice a day. The patient is at risk for falling. Apparently, he will need a left atrial appendage closure as an outpatient. 2.Elevated troponin. No chest pain, could be due to rhabdomyolysis. At one point, this patient isabel l need a stress test. 3.Acute renal failure and probably, there is mild rhabdomyolysis component and the patient's kidney function will be monitored. SR/MODL Voice ID: [id number] Report ID: [id number]
[2023-07-12 05:08] LABS: Absolute Lymphocytes (CBC) 1.1 K/uL (0.7-4.9); Hematocrit 33.5 % (39.6-49.0); Lymphocytes % 10.7 % (15.3-44.8); MCV 86.5 fL (80-100); Platelets 270 thou/uL (152-406); RBC Red Blood Cell Count 3.88 M/uL (4.33-5.43)
[2023-07-12 05:20] LABS: Albumin 2.1 g/dL (3.4-5.0); Bilirubin Total 0.6 mg/dL (0.2-1.0); Potassium 3.7 mEq/L (3.5-5.1); Protein, Total 5.2 g/dL (6.4-8.2)
[2023-07-12 05:58] VITALS: O2SAT 98; BMI 17.3
[2023-07-12] MEDS: NACHLORIDE 0.45% 1,000 ML IV SCH ×2 (06:20→16:57)
--- NOTE | 2023-07-12 07:09 | ECHO ---
HEIGHT: 5 ft 11 in WEIGHT: 124 lb 8 oz DATE OF STUDY: 07/11/[address]: Perry Engle NP 2-DIMENSIONAL: YES M.MODE: YES DOPPLER: YES COLOR FLOW: YES TDS: PORTABLE: YES DEFINITY: BUBBLE STUDY: DIAGNOSIS: ATRIAL FIBRILLATION WITH RAPID VENTRICULAR RESPONSE CARDIAC HISTORY: CATHERIZATION: NO SURGERY: NO PROSTHETIC VALVE: NO PACEMAKER: NO MEASUREMENTS (cm) DIASTOLIC (NORMALS) SYSTOLIC (NORMALS) IVSd 0.9 (0.6-1.2) LA Diam 2.2 (1.9-4.0) LVEF 60% LVIDd 3.8 (3.5-5.7) LVIDs 2.6 (2.0-3.5) %FS 32% LVPWd 1.0 (0.6-1.2) Ao Diam 2.5 (2.0-3.7) 2 DIMENSIONAL ASSESSMENT: RIGHT ATRIUM: NORMAL LEFT ATRIUM: NORMAL RIGHT VENTRICLE: NORMAL LEFT VENTRICLE: NORMAL TRICUSPID VALVE: MILD TRICUSPID REGURGITATION MITRAL VALVE: MILD MITRAL REGURGITATION PULMONIC VALVE: NORMAL AORTIC VALVE: NORMAL PERICARDIAL EFFUSION: NONE AORTIC ROOT: NORMAL LEFT VENTRICULAR WALL MOTION: NORMAL DOPPLER/COLOR FLOW: SEE BELOW COMMENTS: 1. NORMAL LEFT VENTRICULAR EJECTION FRACTION 55-60% WITH NORMAL WALL MOTION 2. MODERATE DIASTOLIC DYSFUNCTION 3. MILD TRICUSPID REGURGITATION 4. MILD MITRAL REGURGITATION TECHNOLOGIST: JD HERNÁNDEZ
[2023-07-12] MEDS: INSULIN REGULAR (HUMAN) 100 UNIT/ML SQ SCH ×4 (07:30→20:14)
[2023-07-12] MEDS: GLUCERNA SHAKE 237 ML CAN PO SCH ×3 (08:17→20:10)
[2023-07-12] MEDS: AMIODARONE HCL 200 MG TAB PO SCH ×2 (08:55→20:10)
[2023-07-12] MEDS: JUVEN PACKET PO SCH ×2 (08:55→20:10)
[2023-07-12] MEDS: ENOXAPARIN 60 MG/0.6 ML SQ SCH (08:55)
--- NOTE | 2023-07-12 12:50 | P.PN ---
Subjective Date of Service: 07/12/23 Chief Complaint: A-fib RVR, rhabdomyolysis, fall Patient is awake and alert. Off amiodarone drip. He is tolerating diet. He denies any complaint today. He denies any shortness of breath. He is in sinus rhythm. Physical Examination - Vital Signs Temperature: 97.2 F Blood Pressure: 122/70 Pulse: 79 Respirations: 19 Pulse Ox (%): 98 - Studies Microbiology Data (last 24 hrs): 07/10/23 21:57 Blood - Blood Anaerobic Blood Culture - Final Assessment And Plan - Plan Physical Exam: GEN: Alert, oriented, NAD HEENT: Normal conjunctiva, sclera anicteric CV: Regular rate and rhythm, no edema Pulm: Clear to auscultation bilaterally, adequate breath sounds bilaterally ABD: Soft, nontender, nondistended Integumentary: multiple pressure wounds - right face, chest wall, right hip, b/l knees, sacral Neuro: Normal speech, normal affect; generalized weakness Butler in place vitals reviewed Problem List: Fall, prolonged immobilization, rhabdomyolysis JYOTI Atrial fibrillation with RVR NSTEMI h/o esophageal cancer Multiple pressure wounds-right face, chest wall, right hip, bilateral knees, sacral Severe protein calorie malnutrition Plan: Fall, prolonged immobilization, rhabdomyolysis JYOTI CT head/chest/abd (07/10): Negative for acute traumatic findings within the above detailed limitations. Thickening of the esophagus is seen with a small hiatal hernia Nephrology is following. JYOTI resolved. Continue IV fluids PT/ST consult, may need placement at discharge Awaiting PT input. Rhabdomyolysis resolved. Atrial fibrillation with RVR NSTEMI Questionable history of A-fib in the past; not on any blood thinners at home. trend troponins - mildly elevated, monitor on telemetry. Elevated troponin is likely secondary to demand ischemia Cardiology input appreciated. IV amiodarone transition to oral amiodarone. Echo: Normal EF. Multiple pressure wounds-right face, chest wall, right hip, bilateral knees, sacral Local wound care. Severe protein calorie malnutrition Nutritional supplementation. VTE: Lovenox Code: DNR Dispo: ss/cm consulted; may need placement.
--- NOTE | 2023-07-12 22:12 | P.PN ---
Date of Service: 07/12/23 Vital Signs Temp Pulse Resp BP Pulse Ox 97.9 F 84 17 137/67 98 07/12/23 21:05 07/12/23 21:05 07/12/23 21:05 07/12/23 21:05 07/12/23 21:05 Medications Acetaminophen (Acetaminophen 500 Mg Tab) 500 mg PO Q4HP PRN PRN Reason: Pain scale 2-4 (Mild) Amiodarone HCl (Amiodarone Hcl 200 Mg Tab) 200 mg PO BID [facility] Last Admin: 07/12/23 20:10 Dose: 200 mg Enoxaparin Sodium (Enoxaparin 60 Mg/0.6 Ml) 50 mg SQ DAILY [facility] Last Admin: 07/12/23 08:55 Dose: 50 mg Enteral Nutritional Formula (Glucerna Shake 237 Ml Can) 237 ml PO TID [facility] Last Admin: 07/12/23 20:10 Dose: 237 ml Fentanyl Citrate (Fentanyl Citr 100 Mcg/2 Ml) 25 mcg IV Q4H PRN PRN Reason: Pain scale 8-10 (Severe) Glucagon (Glucagon 1 Mg/Vial) 1 mg IM 1X PRN PRN Reason: HYPOGLYCEMIA Sodium Chloride (Sodium Chloride 0.45%) 1,000 mls @ 100 mls/hr IV .Q10H [facility] Last Admin: 07/12/23 16:57 Dose: 1,000 mls Dextrose (Dextrose 10% Water Iv Soln.) 125 mls @ 0 mls/hr IV PRN PRN; Protocol PRN Reason: HYPOGLYCEMIA Insulin Human Regular (Insulin Regular (Human) 100 Unit/Ml) 0 unit SQ ACHS [facility]; Protocol Last Admin: 07/12/23 20:14 Dose: Not Given L-Arginine/L-Glutamine/HMB (Moe Packet) 1 pkt PO BID [facility] Last Admin: 07/12/23 20:10 Dose: 1 pkt Microbiology Results 07/10/23 21:57 Blood - Blood Aerobic Blood Culture - Preliminary No growth in 24 hours. 07/10/23 21:57 Blood - Blood Anaerobic Blood Culture - Final 07/10/23 20:51 Blood - Blood Aerobic Blood Culture - Preliminary No growth in 24 hours. 07/10/23 20:51 Blood - Blood Anaerobic Blood Culture - Preliminary No growth in 24 hours. Assessment/ Plan: Nephrology No dyspnea No chest pain Weakness No acute events overnight Vitals, medications, blood work and imaging reviewed in the chart. General: In no apparent distress, Cachectic HEENT: Atraumatic Neck: Supple Respiratory: Clear to auscultation bilaterally Cardiovascular: No edema Gastrointestinal: Soft and benign, Non-distended Musculoskeletal: No clubbing, No contractures Integumentary: No cyanosis, Skin lesion Neurological: Normal speech Laboratory Data (last 24 hrs) 07/10/23 07/10/23 21:57 20:51 WBC 17.60 H Hgb 15.0 Hct 45.9 Plt Count 412 H Sodium 142 Potassium 4.2 BUN 66 H Creatinine 1.70 H Glucose 226 H Magnesium 2.5 H Total Bilirubin 1.3 H AST 28 ALT 21 Alkaline Phosphatase 47 Imagings Data: EXAM DESCRIPTION: CT - Head C Spine Cap Wo Con - 07/10/2023 9:18 pm CLINICAL HISTORY: Trauma, head and neck injury. Chest, abdomen and pelvis pain. fall, found down COMPARISON: No comparisons TECHNIQUE: CT head without contrast. CT cervical spine without contrast with coronal and sagittal reformatted images. CT chest, abdomen and pelvis without contrast with coronal and sagittal reformatted images of the spine. All CT scans are performed using dose optimization technique as appropriate and may include automated exposure control or mA/KV adjustment according to patient size. FINDINGS: CT HEAD WITHOUT CONTRAST: No intracranial hemorrhage, hydrocephalus or extra-axial fluid collection. Moderate generalized brain atrophy is present with advanced periventricular and deep white matter chronic microvascular ischemic changes. No areas of brain edema or midline shift. Left vertebral atherosclerosis. The paranasal sinuses and mastoids are clear. The calvarium is intact. CT CERVICAL SPINE WITHOUT CONTRAST: No fracture or subluxation. Moderate mid and lower cervical degenerative changes. The prevertebral soft tissues are normal in thickness. CT CHEST, ABDOMEN, PELVIS WITHOUT CONTRAST: NOTE: Lack of contrast is a significant limitation in the assessment of trauma related findings. Specifically, solid organ, vascular and bowel evaluation is significantly limited. Moderate diffuse COPD.Thickening of the esophagus is seen with a small hiatal hernia.No pneumothorax or pericardial/pleural fluid. No evidence of intra-abdominal visceral injury, free fluid or free air is seen within the above detailed limitations. No concerning pelvic findings. No fractures. Moderate lower lumbar degenerative changes. IMPRESSION: Negative for acute traumatic findings within the above detailed limitations. EXAM DESCRIPTION: RAD - Chest Single View - 07/10/2023 9:00 pm CLINICAL HISTORY: fall Chest pain. FINDINGS: Portable technique limits examination quality. The lungs are grossly clear. The heart is normal in size. No displaced fractures. IMPRESSION: No acute intrathoracic process suspected. Conclusions/Impression: CKD IIIb with Proteinuria -No NSAIDs -Continue IVF 1/2NS Rhabdomyolysis, mild -Continue IVF 1/2NS DM II with CKD -RISS Hypoalbuminemia -Recommend protein supplmentation Anemia in chronic illness -Monitor H&H Multiple skin ulcers -Wound care as ordered Hospitalist note reviewed
[2023-07-13] MEDS: NACHLORIDE 0.45% 1,000 ML IV SCH ×3 (05:38→23:56)
[2023-07-13] MEDS: INSULIN REGULAR (HUMAN) 100 UNIT/ML SQ SCH ×4 (07:30→20:51)
[2023-07-13] MEDS: AMIODARONE HCL 200 MG TAB PO SCH ×2 (08:33→20:57)
[2023-07-13] MEDS: ENOXAPARIN 60 MG/0.6 ML SQ SCH (08:33)
[2023-07-13] MEDS: GLUCERNA SHAKE 237 ML CAN PO SCH ×3 (08:34→20:57)
[2023-07-13] MEDS: JUVEN PACKET PO SCH ×2 (08:34→20:57)
--- NOTE | 2023-07-13 15:04 | P.PN ---
Subjective Date of Service: 07/13/23 Chief Complaint: A-fib RVR, rhabdomyolysis, fall Patient is awake and alert. He is tolerating diet. He denies any complaint today. He denies any shortness of breath. He remains in sinus rhythm. Physical Examination - Vital Signs Temperature: 98.3 F Blood Pressure: 140/73 Pulse: 81 Respirations: 16 Pulse Ox (%): 95 Assessment And Plan - Plan Physical Exam: GEN: Alert, oriented, NAD HEENT: Normal conjunctiva, sclera anicteric CV: Regular rate and rhythm, no edema Pulm: Clear to auscultation bilaterally, adequate breath sounds bilaterally ABD: Soft, nontender, nondistended Integumentary: multiple pressure wounds - right face, chest wall, right hip, b/l knees, sacral Neuro: Normal speech, normal affect. Butler in place vitals reviewed Problem List: Fall, prolonged immobilization, rhabdomyolysis JYOTI Atrial fibrillation with RVR NSTEMI h/o esophageal cancer Multiple pressure wounds-right face, chest wall, right hip, bilateral knees, sacral Severe protein calorie malnutrition Plan: Fall, prolonged immobilization, rhabdomyolysis JYOTI CT head/chest/abd (07/10): Negative for acute traumatic findings within the above detailed limitations. Thickening of the esophagus is seen with a small hiatal hernia Nephrology is following. JYOTI resolved. Continue IV fluids PT/ST consult, may need placement at discharge Rhabdomyolysis resolved. Patient is needing significant assistance with mobility. He is being considered for inpatient rehab. Atrial fibrillation with RVR NSTEMI Questionable history of A-fib in the past; not on any blood thinners at home. trend troponins - mildly elevated, monitor on telemetry. Elevated troponin is likely secondary to demand ischemia Cardiology input appreciated. Patient was started on IV amiodarone and transitioned to oral amiodarone. Echo: Normal EF. He has remained in sinus rhythm. Multiple pressure wounds-right face, chest wall, right hip, bilateral knees, sacral Local wound care. Severe protein calorie malnutrition Nutritional supplementation. VTE: Lovenox Code: DNR Dispo: ss/cm consulted; inpatient rehab.
--- NOTE | 2023-07-13 22:57 | P.PN ---
Date of Service: 07/13/23 Vital Signs Temp Pulse Resp BP Pulse Ox 97.7 F 81 18 137/64 96 07/13/23 20:00 07/13/23 20:00 07/13/23 20:00 07/13/23 20:00 07/13/23 20:00 Medications Acetaminophen (Acetaminophen 500 Mg Tab) 500 mg PO Q4HP PRN PRN Reason: Pain scale 2-4 (Mild) Amiodarone HCl (Amiodarone Hcl 200 Mg Tab) 200 mg PO BID [facility] Last Admin: 07/13/23 20:57 Dose: 200 mg Enoxaparin Sodium (Enoxaparin 60 Mg/0.6 Ml) 50 mg SQ DAILY [facility] Last Admin: 07/13/23 08:33 Dose: 50 mg Enteral Nutritional Formula (Glucerna Shake 237 Ml Can) 237 ml PO TID [facility] Last Admin: 07/13/23 20:57 Dose: 237 ml Fentanyl Citrate (Fentanyl Citr 100 Mcg/2 Ml) 25 mcg IV Q4H PRN PRN Reason: Pain scale 8-10 (Severe) Glucagon (Glucagon 1 Mg/Vial) 1 mg IM 1X PRN PRN Reason: HYPOGLYCEMIA Sodium Chloride (Sodium Chloride 0.45%) 1,000 mls @ 100 mls/hr IV .Q10H [facility] Last Admin: 07/13/23 13:54 Dose: 1,000 mls Dextrose (Dextrose 10% Water Iv Soln.) 125 mls @ 0 mls/hr IV PRN PRN; Protocol PRN Reason: HYPOGLYCEMIA Insulin Human Regular (Insulin Regular (Human) 100 Unit/Ml) 0 unit SQ ACHS [facility]; Protocol Last Admin: 07/13/23 20:51 Dose: Not Given L-Arginine/L-Glutamine/HMB (Moe Packet) 1 pkt PO BID [facility] Last Admin: 07/13/23 20:57 Dose: 1 pkt Microbiology Results 07/10/23 21:57 Blood - Blood Aerobic Blood Culture - Preliminary No growth in 24 hours. 07/10/23 21:57 Blood - Blood Anaerobic Blood Culture - Final 07/10/23 20:51 Blood - Blood Aerobic Blood Culture - Preliminary No growth in 24 hours. 07/10/23 20:51 Blood - Blood Anaerobic Blood Culture - Preliminary No growth in 24 hours. Assessment/ Plan: Nephrology No dyspnea No chest pain Weakness No acute events overnight Vitals, medications, blood work and imaging reviewed in the chart. General: In no apparent distress, Cachectic HEENT: Atraumatic Neck: Supple Respiratory: Clear to auscultation bilaterally Cardiovascular: No edema Gastrointestinal: Soft and benign, Non-distended Musculoskeletal: No clubbing, No contractures Integumentary: No cyanosis, Skin lesion Neurological: Normal speech Laboratory Data (last 24 hrs) 07/10/23 07/10/23 21:57 20:51 WBC 17.60 H Hgb 15.0 Hct 45.9 Plt Count 412 H Sodium 142 Potassium 4.2 BUN 66 H Creatinine 1.70 H Glucose 226 H Magnesium 2.5 H Total Bilirubin 1.3 H AST 28 ALT 21 Alkaline Phosphatase 47 Imagings Data: EXAM DESCRIPTION: CT - Head C Spine Cap Wo Con - 07/10/2023 9:18 pm CLINICAL HISTORY: Trauma, head and neck injury. Chest, abdomen and pelvis pain. fall, found down COMPARISON: No comparisons TECHNIQUE: CT head without contrast. CT cervical spine without contrast with coronal and sagittal reformatted images. CT chest, abdomen and pelvis without contrast with coronal and sagittal reformatted images of the spine. All CT scans are performed using dose optimization technique as appropriate and may include automated exposure control or mA/KV adjustment according to patient size. FINDINGS: CT HEAD WITHOUT CONTRAST: No intracranial hemorrhage, hydrocephalus or extra-axial fluid collection. Moderate generalized brain atrophy is present with advanced periventricular and deep white matter chronic microvascular ischemic changes. No areas of brain edema or midline shift. Left vertebral atherosclerosis. The paranasal sinuses and mastoids are clear. The calvarium is intact. CT CERVICAL SPINE WITHOUT CONTRAST: No fracture or subluxation. Moderate mid and lower cervical degenerative changes. The prevertebral soft tissues are normal in thickness. CT CHEST, ABDOMEN, PELVIS WITHOUT CONTRAST: NOTE: Lack of contrast is a significant limitation in the assessment of trauma related findings. Specifically, solid organ, vascular and bowel evaluation is significantly limited. Moderate diffuse COPD.Thickening of the esophagus is seen with a small hiatal hernia.No pneumothorax or pericardial/pleural fluid. No evidence of intra-abdominal visceral injury, free fluid or free air is seen within the above detailed limitations. No concerning pelvic findings. No fractures. Moderate lower lumbar degenerative changes. IMPRESSION: Negative for acute traumatic findings within the above detailed limitations. EXAM DESCRIPTION: RAD - Chest Single View - 07/10/2023 9:00 pm CLINICAL HISTORY: fall Chest pain. FINDINGS: Portable technique limits examination quality. The lungs are grossly clear. The heart is normal in size. No displaced fractures. IMPRESSION: No acute intrathoracic process suspected. Conclusions/Impression: CKD IIIb with Proteinuria -No NSAIDs -Continue IVF 1/2NS Rhabdomyolysis, mild -Continue IVF 1/2NS DM II with CKD -RISS Hypoalbuminemia -Recommend protein supplmentation Anemia in chronic illness -Monitor H&H Multiple skin ulcers -Wound care as ordered Hospitalist note reviewed
[2023-07-14 06:56] LABS: Absolute Lymphocytes (CBC) 0.9 K/uL (0.7-4.9); Hematocrit 30.9 % (39.6-49.0); Lymphocytes % 7.1 % (15.3-44.8); MCV 86.1 fL (80-100); MPV 6.9 fL (7.6-11.3); Platelets 275 thou/uL (152-406); RBC Red Blood Cell Count 3.59 M/uL (4.33-5.43)
[2023-07-14 07:09] LABS: Potassium 3.8 mEq/L (3.5-5.1)
[2023-07-14] MEDS: INSULIN REGULAR (HUMAN) 100 UNIT/ML SQ SCH ×3 (07:30→16:30)
[2023-07-14 08:49] LABS: Blood Morphology Comment NOT SEEN (NOT SEEN); Platelet Estimate ADEQ; White Blood Cell Scan OK (OK)
[2023-07-14] MEDS: JUVEN PACKET PO SCH (09:00)
[2023-07-14] MEDS: GLUCERNA SHAKE 237 ML CAN PO SCH ×2 (09:00→14:00)
[2023-07-14] MEDS: AMIODARONE HCL 200 MG TAB PO SCH (09:26)
[2023-07-14] MEDS: NACHLORIDE 0.45% 1,000 ML IV SCH ×2 (09:27→14:01)
[2023-07-14] MEDS: ENOXAPARIN 60 MG/0.6 ML SQ SCH (09:27)
--- NOTE | 2023-07-14 14:40 | P.PN ---
Subjective Date of Service: 07/14/23 Chief Complaint: A-fib RVR, rhabdomyolysis, fall No issues overnight. He denies any complaint today. He denies any shortness of breath. He has been in sinus rhythm. Physical Examination - Vital Signs Temperature: 98.3 F Blood Pressure: 149/68 Pulse: 78 Respirations: 16 Pulse Ox (%): 94 Assessment And Plan - Plan Physical Exam: GEN: Alert, oriented, NAD HEENT: Normal conjunctiva, sclera anicteric CV: Regular rate and rhythm, no edema Pulm: Clear to auscultation bilaterally, adequate breath sounds bilaterally ABD: Soft, nontender, nondistended Integumentary: multiple pressure wounds - right face, chest wall, right hip, b/l knees, sacral Neuro: Normal speech, normal affect. vitals reviewed Problem List: Fall, prolonged immobilization, rhabdomyolysis JYOTI Atrial fibrillation with RVR NSTEMI h/o esophageal cancer Multiple pressure wounds-right face, chest wall, right hip, bilateral knees, sacral Severe protein calorie malnutrition Plan: Fall, prolonged immobilization, rhabdomyolysis JYOTI CT head/chest/abd (07/10): Negative for acute traumatic findings within the above detailed limitations. Thickening of the esophagus is seen with a small hiatal hernia Nephrology is following. JYOTI resolved. Discontinue IV fluid. Encourage oral intake. Patient is on pureed diet given history of dysphagia secondary to esophageal cancer. Rhabdomyolysis resolved. Patient is needing significant assistance with mobility. He is slated for SNF placement Atrial fibrillation with RVR NSTEMI Questionable history of A-fib in the past; not on any blood thinners at home. trend troponins - mildly elevated, monitor on telemetry. Elevated troponin is likely secondary to demand ischemia Cardiology input appreciated. Patient was started on IV amiodarone and transitioned to oral amiodarone. Echo: Normal EF. He has remained in sinus rhythm. Multiple pressure wounds-right face, chest wall, right hip, bilateral knees, sacral Local wound care. Severe protein calorie malnutrition Nutritional supplementation. 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 Continue pured diet VTE: Lovenox Code: DNR Dispo: ss/cm is assisting with arrangement for SNF placement.
--- NOTE | 2023-07-14 16:17 | P.DS ---
Admission Date: 07/10/23 Discharge Date: 07/14/23 Disposition: TRANSFER TO SKILLED NURSING Discharge Condition: FAIR Reason for Admission: A-fib RVR, rhabdomyolysis, fall Brief History of Present Illness: 83-year-old male with history of esophageal cancer diagnosed 1 month ago, previous diabetes type [id number] presented to the emergency department with chief complaint of fall. Patient reported to having a mechanical fall about 4 days prior and being unable to get up. Her daughter checked on him found him lying in a prone position on the floor at home. He was transported emergency department and found to be in A-fib RVR with a rate of 150 hypothermic with a temperature of 93.6. He has pressure sores to the right side of his face, chest wall, right hip, bilateral knees. He was awake, alert oriented x4 during examination. His labs were significant for white blood cell 17.6, creatinine 1.7 GFR 40, glucose 226, lactic acid 3.4, CPK 830, troponin 64.0, BNP 7888. Patient given IV fluids, started on IV amiodarone for A-fib RVR and admitted to the ICU for further management. Hospital Course: Diagnosis Fall, Rhabdomyolysis JYOTI Atrial fibrillation with RVR NSTEMI h/o esophageal cancer Multiple pressure wounds-right face, chest wall, right hip, bilateral knees, sacral Severe protein calorie malnutrition Plan: Fall/Rhabdomyolysis JYOTI CT head/chest/abd (07/10): Negative for acute traumatic findings within the above detailed limitations. Stencil Cutter evaluated patient and followed his course during the hospital stay JYOTI resolved with IV fluid Patient is on pureed diet given history of dysphagia secondary to esophageal cancer. Rhabdomyolysis resolved. Patient is needing significant assistance with mobility. He has been accepted to SNF for skilled rehab. Atrial fibrillation with RVR NSTEMI Questionable history of A-fib in the past; not on any blood thinners at home. Troponin mildly elevated. Elevated troponin is likely secondary to demand ischemia Patient seen and evaluated by cardiology. Patient converted to sinus rhythm. IV amiodarone drip transitioned to oral amiodarone. He remained in sinus rhythm Echo: Normal EF. Multiple pressure wounds-right face, chest wall, right hip, bilateral knees, sacral Local wound care. Severe protein calorie malnutrition Nutritional supplementation. 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 On pured diet Vital Signs/Physical Exam: Temp Pulse Resp BP Pulse Ox 98.3 F 78 16 149/68 H 94 07/14/23 14:43 07/14/23 14:43 07/14/23 14:43 07/14/23 14:43 07/14/23 14:43 General: Alert, In no apparent distress, Oriented x3 HEENT: Mucous membr. moist/pink Neck: Supple, JVD not distended Respiratory: Clear to auscultation bilaterally, Normal air movement Cardiovascular: Regular rate/rhythm, Normal S1 S2 Gastrointestinal: Normal bowel sounds, Soft and benign, Non-distended, No tenderness Musculoskeletal: No swelling Neurological: Normal strength at 5/5 x4 extr Laboratory Data at Discharge: WBC 13.10 thou/uL (4.3-10.9) H 07/14/23 06:20 Hgb 10.4 g/dL (13.6-17.9) L 07/14/23 06:20 Hct 30.9 % (39.6-49.0) L 07/14/23 06:20 Plt Count 275 thou/uL (152-406) 07/14/23 06:20 Sodium 137 mEq/L (136-145) 07/14/23 06:20 Potassium 3.8 mEq/L (3.5-5.1) 07/14/23 06:20 BUN 27 mg/dL (7-18) H 07/14/23 06:20 Creatinine 0.87 mg/dL (0.70-1.30) 07/14/23 06:20 Glucose 109 mg/dL (74-106) H 07/14/23 06:20 Magnesium 2.0 mg/dL (1.6-2.4) 07/12/23 04:32 Total Bilirubin 0.6 mg/dL (0.2-1.0) 07/12/23 04:32 AST 24 U/L (15-37) 07/12/23 04:32 ALT 21 U/L (16-61) 07/12/23 04:32 Alkaline Phosphatase 44 U/L (45-117) L 07/12/23 04:32 Triglycerides 85 mg/dL (<150) 07/11/23 02:01 Cholesterol 111 mg/dL (<200) 07/11/23 02:01 HDL Cholesterol 32 mg/dL (40-60) L 07/11/23 02:01 Cholesterol/HDL Ratio 3.47 07/11/23 02:01 Home Medications: Amiodarone HCl [Cordarone*] 200 mg PO BID tab 07/14/23 Glucerna Shake [Glucerna*] 237 ml PO TID can 07/14/23 Moe [Moe*] 1 pkt PO BID 07/14/23 Diet: ADA Activity: Fall precautions Followup: NONE,NONE [Primary Care Provider] - Sami Frausto MD [ACTIVE - CAN ADMIT] - (Within 2 to 4 weeks.) Time spent managing pt's care (in minutes): 36
[2023-07-14 16:40] LABS: SARS-CoV-2 Antigen Rapid Res Negative (Negative)
[2023-07-14 17:52] VITALS: BP 131/64; TEMP 98
--- NOTE | 2023-07-14 20:05 | P.PN ---
Date of Service: 07/14/23 Vital Signs Temp Pulse Resp BP Pulse Ox 98.0 F 79 16 131/64 97 07/14/23 16:00 07/14/23 16:00 07/14/23 16:00 07/14/23 16:00 07/14/23 16:00 Medications Acetaminophen (Acetaminophen 500 Mg Tab) 500 mg PO Q4HP PRN PRN Reason: Pain scale 2-4 (Mild) Amiodarone HCl (Amiodarone Hcl 200 Mg Tab) 200 mg PO BID [facility] Last Admin: 07/14/23 09:26 Dose: 200 mg Enoxaparin Sodium (Enoxaparin 60 Mg/0.6 Ml) 50 mg SQ DAILY [facility] Last Admin: 07/14/23 09:27 Dose: 50 mg Enteral Nutritional Formula (Glucerna Shake 237 Ml Can) 237 ml PO TID [facility] Last Admin: 07/14/23 14:00 Dose: 237 ml Fentanyl Citrate (Fentanyl Citr 100 Mcg/2 Ml) 25 mcg IV Q4H PRN PRN Reason: Pain scale 8-10 (Severe) Glucagon (Glucagon 1 Mg/Vial) 1 mg IM 1X PRN PRN Reason: HYPOGLYCEMIA Dextrose (Dextrose 10% Water Iv Soln.) 125 mls @ 0 mls/hr IV PRN PRN; Protocol PRN Reason: HYPOGLYCEMIA Insulin Human Regular (Insulin Regular (Human) 100 Unit/Ml) 0 unit SQ ACHS [facility]; Protocol Last Admin: 07/14/23 16:30 Dose: Not Given L-Arginine/L-Glutamine/HMB (Moe Packet) 1 pkt PO BID [facility] Last Admin: 07/14/23 09:00 Dose: 1 pkt Microbiology Results 07/10/23 21:57 Blood - Blood Aerobic Blood Culture - Preliminary No growth in 24 hours. 07/10/23 21:57 Blood - Blood Anaerobic Blood Culture - Final 07/10/23 20:51 Blood - Blood Aerobic Blood Culture - Preliminary No growth in 24 hours. 07/10/23 20:51 Blood - Blood Anaerobic Blood Culture - Preliminary No growth in 24 hours. Assessment/ Plan: Nephrology No dyspnea No chest pain Weakness No acute events overnight Vitals, medications, blood work and imaging reviewed in the chart. General: In no apparent distress, Cachectic HEENT: Atraumatic Neck: Supple Respiratory: Clear to auscultation bilaterally Cardiovascular: No edema Gastrointestinal: Soft and benign, Non-distended Musculoskeletal: No clubbing, No contractures Integumentary: No cyanosis, Skin lesion Neurological: Normal speech Laboratory Data (last 24 hrs) 07/10/23 07/10/23 21:57 20:51 WBC 17.60 H Hgb 15.0 Hct 45.9 Plt Count 412 H Sodium 142 Potassium 4.2 BUN 66 H Creatinine 1.70 H Glucose 226 H Magnesium 2.5 H Total Bilirubin 1.3 H AST 28 ALT 21 Alkaline Phosphatase 47 Imagings Data: EXAM DESCRIPTION: CT - Head C Spine Cap Wo Con - 07/10/2023 9:18 pm CLINICAL HISTORY: Trauma, head and neck injury. Chest, abdomen and pelvis pain. fall, found down COMPARISON: No comparisons TECHNIQUE: CT head without contrast. CT cervical spine without contrast with coronal and sagittal reformatted images. CT chest, abdomen and pelvis without contrast with coronal and sagittal reformatted images of the spine. All CT scans are performed using dose optimization technique as appropriate and may include automated exposure control or mA/KV adjustment according to patient size. FINDINGS: CT HEAD WITHOUT CONTRAST: No intracranial hemorrhage, hydrocephalus or extra-axial fluid collection. Moderate generalized brain atrophy is present with advanced periventricular and deep white matter chronic microvascular ischemic changes. No areas of brain edema or midline shift. Left vertebral atherosclerosis. The paranasal sinuses and mastoids are clear. The calvarium is intact. CT CERVICAL SPINE WITHOUT CONTRAST: No fracture or subluxation. Moderate mid and lower cervical degenerative changes. The prevertebral soft tissues are normal in thickness. CT CHEST, ABDOMEN, PELVIS WITHOUT CONTRAST: NOTE: Lack of contrast is a significant limitation in the assessment of trauma related findings. Specifically, solid organ, vascular and bowel evaluation is significantly limited. Moderate diffuse COPD.Thickening of the esophagus is seen with a small hiatal hernia.No pneumothorax or pericardial/pleural fluid. No evidence of intra-abdominal visceral injury, free fluid or free air is seen within the above detailed limitations. No concerning pelvic findings. No fractures. Moderate lower lumbar degenerative changes. IMPRESSION: Negative for acute traumatic findings within the above detailed limitations. EXAM DESCRIPTION: RAD - Chest Single View - 07/10/2023 9:00 pm CLINICAL HISTORY: fall Chest pain. FINDINGS: Portable technique limits examination quality. The lungs are grossly clear. The heart is normal in size. No displaced fractures. IMPRESSION: No acute intrathoracic process suspected. Conclusions/Impression: CKD IIIb with Proteinuria -No NSAIDs -Discontinue IVF Rhabdomyolysis, mild -Continue IVF 1/2NS DM II with CKD -RISS Hypoalbuminemia -Recommend protein supplmentation Anemia in chronic illness -Monitor H&H Multiple skin ulcers -Wound care as ordered Hospitalist note reviewed
== END 2023-07-14 19:00 | DRG 557 ==
LOC: ER 19:49 → ERHOLD 23:01 → 3RD-ICU 07-11 00:47 → 4TH 07-12 16:30
PROVIDERS: ADMIT Hospitalist; ATTEND Internal Medicine
DX: M62.82 Rhabdomyolysis (principal); E43 Unspecified severe protein-calorie malnutrition; I21.A1 Myocardial infarction type 2; C15.9 Malignant neoplasm of esophagus, unspecified; R64 Cachexia; Z68.1 Body mass index [BMI] 19.9 or less, adult; N17.9 Acute kidney failure, unspecified; I48.91 Unspecified atrial fibrillation; N18.32 Chronic kidney disease, stage 3b; E11.22 Type 2 diabetes mellitus with diabetic chronic kidney disease; D63.1 Anemia in chronic kidney disease; E88.09 Other disorders of plasma-protein metabolism, not elsewhere classified; K44.9 Diaphragmatic hernia without obstruction or gangrene; L89.819 Pressure ulcer of head, unspecified stage; L89.219 Pressure ulcer of right hip, unspecified stage; L89.159 Pressure ulcer of sacral region, unspecified stage; L89.899 Pressure ulcer of other site, unspecified stage; R68.0 Hypothermia, not associated with low environmental temperature; Z66 Do not resuscitate; Z60.2 Problems related to living alone; Z20.822 Contact with and (suspected) exposure to COVID-19; W18.30XA Fall on same level, unspecified, initial encounter; Y93.9 Activity, unspecified; Y99.9 Unspecified external cause status; Y92.019 Unspecified place in single-family (private) house as the place of occurrence of the external cause
CPT/HCPCS: 36415; 51702; 70450; 71045; 71250; 72125; 80048; 80053; 80061; 80076; 81001; 82550; 82947; 83605; 83735; 83880; 84443; 84484; 85025; 87040; 87811; 92526; 92610; 93005; 93306; 96365; 96375; 97116; 97161; 97530; 99285; J0282; J1650; J7030

== ENCOUNTER 2023-08-08 15:43 | Emergency (ER) | payer OTHER ==
--- OUTSIDE RECORDS SUMMARY | 2023-08-08 15:55 | XMS REPORT | Continuity of Care Document ---
:[address] [facility] t Address [address] [place] [address] Care Team Providers Name Role Phone None, None Primary Care Physician Unavailable THEODORA LYNN Attending Clinician Unavailable Doctor Unassigned, [place] Attending Clinician Unavailable Cholo Holm MD Attending Clinician MogadoreLisha Simms Attending Clinician CHOLO HOLM Attending Clinician Unavailable [...] Number Effective Date Expiration Date S fred [facility] [id number] 2022 PLAN-CHRISTUS 00:00:00 [facility] UNIFORM [id number] [address] [facility] 00:00:00 Problems Condition Condition Condition Status Onset Resolution Last Treating Co mments Source Name Details Category Date Date Treatment Clinician Date E46 E46 Disease Active Univers Unspecifie Unspecifie 8- it y of d severe d severe 00:00: [place] protein-ca protein-ca 00 Me dical tor tor Branch malnutriti malnutriti on on Dysphagia Dysphagia Disease Active Uni vers 8 ity of 00:00: Medical Branch Vomiting, Vomiting, Disease Active Uni vers unspecifie unspecifie 8 it y of d vomiting d [place] type, type, 00 Medical unspecifie unspecifie Br anch d whether d whether nausea nausea present present Esophageal Esophageal Disease Active U nivers mass mass 8- ity of 00:00: [place] 00 Medical Branch PAD PAD Disease Active [place] (periphera (periphera 623 He alth l artery l artery 00:00: disease) disease) 00 E44.1 Mild 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 2019-0 U nivers protein-ca protein-ca 1-06 it y of tor lentz 00:00: [place] malnutriti malnutriti 00 Me dical on on Branch Left-sided Left-sided Disease Active 2019-0 U nivers weakness weakness 1-05 ity of 00:00: [place] 00 Medical Branch Mild Mild Disease Active [...] Type 2 Disease Active Methodi diabetes diabetes 8[address] st mellitus mellitus 00:00: Hospit a without without 00 l complicati complicati on on Allergies, Adverse Reactions, Alerts Allergy Allergy Status Severity Reaction(s) Onset Inactive Treating Comm ents Source Name Type Date Date Clinician NO KNOWN Drug Active Univers ALLERGIE Class ity of S [facility] [place] [facility] Family History Family Member Diagnosis Comments Start Date Stop Date Source Natural brother [facility] Natural father Hypertension [facility] Natural mother Emphysema [facility] Social History Social Habit Start Date Stop Date Quantity Comments Source History of tobacco Passive smoker Un iversity of use [facility] [place] [facility] Gender identity [facility] Sexual orientation [facility] Tobacco use and 2023-05-16 2023-05-16 Smokeless Universit y of exposure 00:00:00 00:00:00 tobacco non-user [facility] History of Social 2017-03-14 2017-03-[address] function 00:00:00 00:00:00 Hospital Alcohol intake 2016-10-26 2016-10-26 Current [facility] 00:00:00 00:00:00 non-drinker of Hospital alcohol (finding) Cigarettes smoked 2016-05-19 2016-05-[address] current (pack per 00:00:00 00:00:00 Hospita l day) - Reported Cigarette 2016-05-19 2016-05-19 [facility] pack-years 00:00:00 00:00:00 Hospital Sex Ass[birth year] At [birth year] [facility] 00:00:00 00:00:00 Hospital Smoking Status Start Date Stop Date Source Ex-smoker 2023-05-16 00:00:00 2023-05-16 00:00:00 Universi ty [facility] Never smoked tobacco [facility] Medications Ordered Filled Start Stop Current Ordering [...] Tue05/18/23 at 2000, Routine ondansetron 2022- Yes [id number] 4mg Take 1 Univers 4 mg 05-19 tablet by ity of disintegrat 00:00: 04:59 [place] tablet 00 :00 every 8 Medica l (eight) Branch hours as needed for Nausea and Vomiting (N/V) for up to 10 days. ondansetron 2022-0 2022- Yes [id number] 4mg Take 1 Univers 4 mg 05-19- tablet by ity of disintegrat 00:00: 04:59 [place] tablet 00 :00 every 8 Medica l (eight) Branch hours as needed for Nausea and Vomiting (N/V) for up to 10 days. ondansetron 2022-0 2022- Yes [id number] 4mg Take 1 Univers 4 mg 05-19 tablet by ity of disintegrat 00:00: 04:59 [place] tablet 00 :00 every 8 Medica l (eight) Branch hours as needed for Nausea and Vomiting (N/V) for up to 10 days. ondansetron 2022-0 2022- Yes [id number] 4mg Take 1 Univers 4 mg 05-19 tablet by ity of disintegrat 00:00: 04:59 [place] tablet 00 :00 every 8 Medica l (eight) Branch hours as needed for Nausea and Vomiting (N/V) for up to 10 days. sitagliptin 0 2022- No Take by Un diya crocker/metalecia 05-18 mouth. ity o f min HCl 16:41: 00:00 [place] (JANUMET 07 :00 Medical ORAL) Branch magnesium 2022- No 4g 4 g, IV Univ ers sulfate in 05-18 Piggyback, it y of water 4 14:15: 15:[address] [place] [address] gram/50 mL 00 :00 mL/hr Medical (8 %) IV Administer Branc h Piggyback 4 over 120 g Minutes, ONCE, 1 dose, On Tue05/18/23 at 0915, Routine pantoprazol 3-0 Yes 40mg 40 mg, Univ ers e 05-18 Slow IV ity of (PROTONIX) 13:00: Push, [place] injection 00 Q12H, Medical 40 mg First dose Branch on Tue05/18/23 at 0800, Until Discontinu ed pantoprazol 3-0 Yes 40mg 40 mg, Univ ers e 05-18 Slow IV ity of (PROTONIX) 13:00: Push, [place] injection 00 Q12H, Medical 40 mg First [...] Until Tue05/17/23 at 1439, Routine, Intra-op enoxaparin 0 Yes 40mg 40 mg, Unive rs (LOVENOX) 05-17 Subcutaneo ity of injection 14:00: [place] 40 mg 00 First dose Medical on [facility] 05/17/23 at 0900, Until Discontinu ed, Routine enoxaparin 0 Yes 40mg 40 mg, Unive rs (LOVENOX) 05-17 Subcutaneo ity of injection 14:00: [place]ILY[place] 40 mg 00 First dose Medical on [facility] 05/17/23 at 0900, Until Discontinu ed, Routine D5W 0.45% 0 Yes Intravenou Un diya NaCl 8 s, at 100 ity of (1/2NS) 1 L 03:45: mL/hr, [place] + KCL 20 00 CONTINUOUS Medic al mEq , Starting Branch on Tue05/16/23 at 2245, Until Discontinu ed, RAMON D5W 0.45% 0 Yes Intravenou Un diya NaCl 8 s, at 100 ity of (1/2NS) 1 L 03:45: mL/hr, [place] + KCL 20 00 CONTINUOUS Medic al mEq , Starting Branch on Tue05/16/23 at 2245, Until Discontinu ed, RAMON ondansetron 0 Yes 4mg 4 mg, Slow Univers (ZOFRAN 05-17 IV Push, ity of (PF)) 03:34: Q6HPRN, [place] injection 4 28 Starting Medi jennifer mg on Tue Branch 05/16/23 at 2234, Until Discontinu ed, Routine, Nausea and Vomiting (N/V) ondansetron 3-0 Yes 4mg 4 mg, Slow Univers (ZOFRAN 05-17 IV Push, ity of (PF)) 03:34: Q6HPRN, [place] injection 4 28 Starting Medi jennifer mg on Tue Branch 05/16/23 at 2234, Until Discontinu ed, Routine, Nausea and Vomiting (N/V) acetaminoph 2022-0 Yes 650mg 650 mg, Un diya en 05-17 Oral, ity of (TYLENOL) 03:34: Q6HPRN, [place] tablet 650 07 Starting Medic al mg on Tue Branch 05/16/23 at 2234, Until Discontinu ed, Routine, Pain (scale 1-3), Temp > 38 C acetaminoph 2022-0 Yes 650mg 650 mg, Un diya en 05-17 Oral, ity of (TYLENOL) 03:34: [facility] [place] tablet 650 07 Starting Medic al mg [...] ity o f min HCl 23:14: 00:00 [place] (JANUMET 51 :00 Medical ORAL) Branch amLODIPine 2022- No [id number] 10mg Take 1 Univers 10 mg 10-03 4100 tablet by ity of tablet 00:00: 00:00 mouth [place] 00 :00 daily. Medical Branch aspirin 81 2022- No [id number] 81mg Take 1 Univers mg chewable 10-03 4100 tablet by it y of tablet 00:00: 00:00 mouth [place] 00 :00 daily. Medical Branch atorvastati 2022- No [id number] 80mg Take 1 Univers n 80 mg 10-03 4100 tablet by ity of tablet 00:00: 00:00 mouth at [place] 00 :00 bedtime. Medical Branch amLODIPine 2022- No [id number] 10mg Take 1 Univers 10 mg 10-03 4100 tablet by ity of tablet 00:00: 00:00 mouth [place] 00 :00 daily. Medical Branch aspirin 81 2022- No [id number] 81mg Take 1 Univers mg chewable 10-03 4100 tablet by it y of tablet 00:00: 00:00 mouth [place] 00 :00 daily. Medical Branch atorvastati 2022- No [id number] 80mg Take 1 Univers n 80 mg 10-03 4100 tablet by ity of tablet 00:00: 00:00 mouth at [place] 00 :00 bedtime. Medical Branch sitaGLIPtin Yes 1{tbl} Q.5D Take 1 Me thodi -metformin 3-[address] (SEPUMET) 00:00: mouth 2 Hospi ta 50-500 mg 00 (two) l per tablet times a day with meals. sitaGLIPtin Yes 1{tbl} Q.5D Take 1 Me thodi -metformin 3-[address] (SEPUMET) 00:00: mouth 2 Hospi ta 50-500 mg 00 (two) l per tablet times a day with meals. Immunizations Ordered Filled Date Status Comments Source Immunization Name Immunization Name Influenza High Dose 2019-10-03 Completed Unive rsity of 00:00:00 [facility] [place] [facility] Influenza High Dose 2019-10-03 Completed Unive rsity of 00:00:00 [facility] [place] [facility] Influenza High Dose 2019-10-03 Completed Unive rsity of 00:00:00 [facility] [place] [facility] Influenza High Dose 2019-10-03 Completed Unive rsity of 00:00:00 [facility] [place] [facility] Influenza High Dose 2019-10-03 Completed Unive rsity of 00:00:00 [facility] [place] [facility] Influenza High Dose Unknown Completed Unive rsity of [facility] [place] [facility] Influenza High Dose Unknown Completed Unive rsity of [facility] [place] [facility] Influenza High Dose Unknown Completed Unive rsity of [facility] [place] [facility] Influenza High Dose Unknown Completed Unive rsity of [facility] [place] [facility] Influenza High Dose Unknown Completed Unive rsity of [facility] [place] [facility] Pneumococcal Unknown Completed [facility] Conjugate 13-[facility]ent Hospi promise Pneumococcal Unknown Completed [facility] Conjugate 13-[facility] Hos[facility] promise Vital Signs Vital Name Observation Time Observation Value Comments Source Systolic blood 2023-05-26 17:10:00 108 mm[Hg] Univer sity of pressure [facility] [place] [facility] Diastolic blood 2023-05-26 17:10:00 66 mm[Hg] Unive rsity of pressure [facility] [place] [facility] Heart rate 2023-05-26 17:10:00 76 /min Universi ty of [facility] [place] [facility] Body temperature 2023-05-26 17:10:00 36.61 Meryl Univ ersity of [facility] [place] [facility] Respiratory rate 2023-05-26 17:10:00 18 /min Univ ersity of [facility] [place] [facility] Body height 2023-05-26 17:10:00 180.3 cm Universi ty of [place] Medical [place] Body weight 2023-05-26 17:10:00 55.43 kg Universi ty of [place] Medical Branch BMI 2023-05-26 17:10:00 17.04 kg/m2 Universi ty of [facility] Branch Oxygen saturation in 2023-05-26 17:10:00 96 /min University of Arterial blood by [facility] Pulse oximetry Branch Systolic blood 2023-05-19 12:22:00 130 mm[Hg] Univer sity of pressure [facility] Branch Diastolic blood 2023-05-19 12:22:00 76 mm[Hg] Unive rsity of pressure [facility] [place] [facility] Heart rate 2023-05-19 12:22:00 62 /min Universi ty of [place] [facility] Body temperature 2023-05-19 12:22:00 36.11 Meryl Univ ersity of [facility] Respiratory rate 2023-05-19 12:22:00 16 /min Univ ersity of [facility] Oxygen saturation in 2023-05-19 12:22:00 96 /min University of Arterial blood by [facility] Pulse oximetry Branch Body weight 2023-05-19 08:48:00 58.968 kg Universi ty of [place] [facility] BMI 2023-05-19 08:48:00 18.13 kg/m2 Universi ty of [place] [facility] Body height 2023-05-17 04:17:00 180.3 cm [facility] Systolic blood 2023-05-17 19:16:00 154 mm[Hg] Univer sity of pressure [facility] [place] [facility] Diastolic blood 2023-05-17 19:16:00 58 mm[Hg] Unive rsity of pressure [facility] [place] [facility] Respiratory rate 2023-05-17 19:16:00 23 /min [facility] Oxygen saturation in 2023-05-17 19:16:00 99 /min [facility] Arterial blood by [facility] Pulse oximetry [place] Heart rate 2023-05-17 19:10:00 54 /min [facility] Body temperature 2023-05-17 16:17:00 36.67 Meryl [facility] height 2023-05-17 04:17:00 180.3 cm [facility] Body weight 2023-05-17 04:17:00 54.477 kg [facility] BMI 2023-05-17 04:17:00 17.82 kg/m2 [facility] Procedures Procedure Date / Time Performing Source Performed Clinician AUTHORIZATION FOR RELEASE OF PHI 2023-07-29 [facility] of 05:01:00 Unassigned, No [facility] POCT GLUCOSE (AUTOMATED) 2023-05-19 Benton Ashley [facility] ity of 12:46:00 [facility] [place] [facility] PHOSPHORUS 2023-05-19 Benton grayson [place] of 10:41:00 [facility] [place] [facility] MAGNESIUM 2023-05-19 Marlene Tanner [place] of 10:41:00 [facility] BASIC METABOLIC PANEL (NA, K, CL, 2023-05-19 Ciro [facility] of CO2, GLUCOSE, BUN, CREATININE, CA) 10:41:00 [facility] PHOSPHORUS 2023-05-18 [facility] of 11:35:00 [facility] [place] [facility] MAGNESIUM 2023-05-18 [facility] of 11:35:00 [facility] [place] [facility] BASIC METABOLIC PANEL (NA, K, CL, 2023-05-18 Marlene Tanner of CO2, GLUCOSE, BUN, CREATININE, CA) 11:35:00 [facility] PHOSPHORUS 2023-05-18 [facility] of 11:35:00 [facility] [place] [facility] MAGNESIUM 2023-05-18 [facility] of 11:35:00 [facility] [place] [facility] BASIC METABOLIC PANEL (NA, K, CL, 2023-05-18 Ciro [facility] of CO2, GLUCOSE, BUN, CREATININE, CA) 11:35:00 [facility] C-REACTIVE PROTEIN 2023-05-18 [facility] of 08:28:00 [facility] CBC WITH DIFF 2023-05-18 Ciro [facility] of 08:28:00 [facility] CBC WITH DIFF 2023-05-18 Ciro [facility] of 08:28:00 [facility] CT THORAX WO CONTRAST 2023-05-18 [facility] of 01:10:00 [facility] CT THORAX WO CONTRAST 2023-05-18 [facility] of 01:10:00 [facility] ESOPHAGOGASTRODUODENOSCOPY 2023-05-17 [facility] rsity of 18:02:00 [facility] ESOPHAGOGASTRODUODENOSCOPY 2023-05-17 [facility] rsity of 18:02:00 [facility] EGD (ENDO) 2023-05-17 [facility] of 17:44:36 [facility] EGD (ENDO) 2023-05-17 [facility] of 17:44:36 [facility] URINALYSIS 2023-05-17 Dontae Grimes of 02:31:00 [facility] URINALYSIS 2023-05-17 Dontae Grimes of 02:31:00 [facility] CT ABDOMEN PELVIS WO CONTRAST 2023-05-17 Dontae Grimes Un iversity of 01:11:40 [facility] CT ABDOMEN PELVIS WO CONTRAST 2023-05-17 Dontae Grimes iversity of 01:11:40 [facility] XR CHEST 1 VW 2023-05-17 Dontae Grimes of 01:05:10 [facility] XR CHEST 1 VW 2023-05-17 Dontae Grimes of 01:05:10 [facility] ABORH CONFIRMATION (LAB ONLY) 2023-05-17 Dontae Grimes iversity of 00:44:00 [place] [facility] ABORH CONFIRMATION (LAB ONLY) 2023-05-17 Dontae Grimes iversity of 00:44:00 [facility] HB ECG ROUTINE & RHYTHM STRIP 2023-05-17 Dontae Grimes iversity of 00:02:05 [facility] HB ECG ROUTINE & RHYTHM STRIP 2023-05-17 Dontae Grimes iversity of 00:02:05 [facility] AC PANEL 21 + LACTIC ACID 2023-05-16 Dontae Grimes Univer sity of 23:34:00 [facility] AC PANEL 21 + LACTIC ACID 2023-05-16 Dontae Grimes Univer sity of 23:34:00 [facility] LIPASE 2023-05-16 Dontae Grimes of 23:33:00 [facility] TROPONIN I 2023-05-16 Dontae Grimes of 23:33:00 [facility] COMP. METABOLIC PANEL ([id number]) 2023-05-16 Dontae Grimes iversity of 23:33:00 [facility] CBC WITH DIFF 2023-05-16 Dontae Grimes of 23:33:00 [facility] PROTHROMBIN TIME / INR 2023-05-16 Dontae Grimes Universit y of 23:33:00 [facility] ACTIVATED PARTIAL THRMPLAS GREGG 2023-05-16 Dontae Grimes niversity of 23:33:00 [facility] HB ABO GROUPING 2023-05-16 Dontae Grimes of 23:33:00 [facility] N-TERMINAL PRO-BNP 2023-05-16 Dontae Grimes of 23:33:00 [facility] LIPASE 2023-05-16 Dontae Grimes of 23:33:00 [facility] TROPONIN I 2023-05-16 Dontae Grimes of 23:33:00 [facility] COMP. METABOLIC PANEL ([id number]) 2023-05-16 Dontae Grimes iversity of 23:33:00 [facility] CBC WITH DIFF 2023-05-16 Dontae Grimes of 23:33:00 [facility] PROTHROMBIN TIME / INR 2023-05-16 Dontae Grimes Universit y of 23:33:00 [facility] [place] [facility] ACTIVATED PARTIAL THRMPLAS GREGG 2023-05-16 Dontae Grimes niversity of 23:33:00 [facility] HB ABO GROUPING 2023-05-16 [facility] of 23:33:00 [facility] N-TERMINAL PRO-BNP 2023-05-16 [facility] of 23:33:00 [facility] Plan of Care Planned Activity Planned Date Details Comments Source Future Scheduled 2023-07-22 [facility] Test 01:16:39 malignant neoplasm of colon (procedure) [code = 332039950] Future Scheduled 2023-07-22 [facility] Test 01:16:39 malignant neoplasm of colon (procedure) [code = 719567384] Future Scheduled 2023-07-22 [facility] Test 01:16:39 malignant neoplasm of colon (procedure) [code = 928827369] Future Scheduled 2023-07-22 COVID-19 VACCINE (#1) [facility] 01:16:39 [code = COVID-19 VACCINE (#1)] Future Scheduled 2023-07-22 SHINGLES VACCINES (1 [facility] Test 01:16:39 of 2) [code = SHINGLES VACCINES (1 of 2)] Future Scheduled 2023-07-22 65+ PNEUMOCOCCAL [facility] Test 01:16:39 VACCINE (2 - PPSV23 or PCV20) [code = 65+ PNEUMOCOCCAL VACCINE (2 - PPSV23 or PCV20)] Future Scheduled 2023-07-22 [facility] Test 01:16:39 malignant neoplasm of colon (procedure) [code = 892290205] Future Scheduled 2023-07-22 [facility] Test 01:16:39 malignant neoplasm of colon (procedure) [code = 297023113] Future Scheduled 2023-07-22 INFLUENZA VACCINE (#[facility]) [facility] 01:16:39 [code = INFLUENZA VACCINE (#1)] Future Scheduled 2023-07-10 [facility] Test 19:52:48 malignant neoplasm of colon (procedure) [code = 820936727] Future Scheduled 2023-07-10 [facility] Test 19:52:48 malignant neoplasm of colon (procedure) [code = 471605503] Future Scheduled 2023-07-10 [facility] Test 19:52:48 malignant neoplasm of colon (procedure) [code = 190417682] Future Scheduled 2023-07-10 COVID[facility]19 [facility]INE (#[facility] 19:52:48 [code = COVID-19 VACCINE (#1)] Future Scheduled 2023-07-10 SHINGLES VACCINES (1 Met [facility] Test 19:52:48 of 2) [code = SHINGLES VACCINES (1 of 2)] Future Scheduled 2023-07-10 RSV VACCINES > 60 YR Met [facility] Test 19:52:48 (1 - 1-dose 60+ series) [code = RSV VACCINES > 60 YR (1 - 1-dose 60+ series)] Future Scheduled 2023-07-10 65+ PNEUMOCOCCAL [facility] Test 19:52:48 VACCINE (2 - PPSV23 or PCV20) [code = 65+ PNEUMOCOCCAL VACCINE (2 - PPSV23 or PCV20)] Future Scheduled 2023-07-10 Screening for [facility] Test 19:52:48 malignant neoplasm of colon (procedure) [code = 662208334] Future Scheduled 2023-07-10 Screening for [facility] Test 19:52:48 malignant neoplasm of colon (procedure) [code = 374659005] Future Scheduled 2023-07-10 INFLUENZA VACCINE (#1) [facility] Test 19:52:48 [code = INFLUENZA VACCINE (#1)] Encounters Start End Encounter Admission Attending Care Care Encounter Source Date/Time Date/Time Type Type Clinicians Facility Department ID 2023-03-21 Outpatient [facility] [id number] [place] 11:17:23 [id number] [facility] 2023-03-18 Outpatient [facility] [id number] [place] 11:01:14 [id number] [facility] 2023-03-04 Outpatient [facility] [id number] [place] 11:16:01 [id number] [facility] 2022-10-25 Outpatient [facility] [id number] [place] 13:59:43 [id number] [facility] 2023-07-29 2023-07-29 Orders Doctor AKOSUA [id number] Univers 00:00:00 00:00:00 Only Unassigned, MARCIO [id number] ity of [place] [facility] [id number] Mannie as [phone] [address] 2023-07-05 2023-07-05 Telephone AKOSUA [id number] Univers 00:00:00 00:00:00 Cholo BUCKLEY [id number] i ty [facility] [id number] Mannie as [id number] [facility] 010 Branch 2023-07-04 2023-07-04 Telephone [facility] [id number] Univers 00:00:00 00:00:00 Cholo HERBERTRAJINDER [id number] ity of [place] [id number] [place] PROFESS[place] [id number] Oh dical NAL 188 [facility] 2023-06-21 2023-06-21 Outpatient R [facility] [id number] Univers 09:30:00 [facility]30[facility] 2023-[facility]-17 2023-06-17 Case AKOSUA Michelle [id number] Univers 00:00:00 00:00:00 Management Lisha L MARCIO [id number] ity [facility] [id number] Mannie as [id number] [facility] [address] [place] 2023-05-26 2023-05-26 [facility] [id number] Univers 11:15:00 12:30:14 [facility] 2023-05-26 2023-05-26 Office [facility] [id number] Univers 11:15:00 12:30:14 Visit Cholo HOPE [id number] ity [facility] [id number] [place] PROFESS[place] [id number] Oh dical NAL 188 Branch [facility] 2023-05-20 2023-05-20 Transition ROMAIN Michele [id number] Univers 00:00:00 00:00:00 of Care Mary Jo MONTESY [id number] it y of [place]2.7.2.686 [place] [id number] [facility] 403 Branch 2023-05-16 2023-05-19 Inpatient X [facility] [id number] Univers 18:12:00 10:50:00 [place] ity of [facility] 2023-05-16 2023-05-19 Hospital Dontae Grimes [facility] [id number] Univers 18:12:00 10:50:00 Encounter Benton Ashley JAYY [id number] ity of Jayce Vargas 4.2.7.2.686 [facility] [phone] [facility] [address] 2023-05-17 2023-05-17 Surgery [facility] 1.2.840.114 [id number] Univers 13:55:00 14:21:00 Cholo HOPE 350.1.13.10 ity of [place] 4.2.7.2.686 [facility] SURGICAL [phone] [facility] [address] 2023-03-18 2023-03-[address] [facility] 1.2.840.114 [id number] SD 11:00:00 09:02:41 [facility] 350.1.13.58 [address] 9.2.7.2.686 [id number] 2 2021-04-16 2021-04-16 Emergency X [facility] ERT [id number] Univers 09:01:00 09:01:00 [facility] 2019-12-21 2019-12-21 [facility] [id number] 00:00:00 00:00:00 Mamie [employer] 350.1.13.10 Clear 4.2.7.2.686 Perez [id number] Medical 2 Office Building 2019-09-30 2019-10-03 Inpatient X SHILA OCHOA [facility] SAIRA [id number] Univers 15:47:44 16:30:00 [facility] Results Test Description Test Time Test Comments Results Result Comments Source POCT GLUCOSE (AUTOMATED) 2023-05-19 12:47:47 Test Item Value Reference Range Interpretation Comme nts POCT GLU (test code = 5785094627) 111 mg/dL 70-110 H Lab Interpretation (test code = 94615-4) [facility]normal [facility] 11:43:54 Test Item Value Reference Range Interpretation Comments MAGNESIUM (test code = 2564720768) 2.2 mg/dL 1.7-2.4 Lab Interpretation (test code = Normal 77332-6) [facility] METABOLIC PANEL (NA, K, CL, CO2, GLUCOSE, BUN, CREATININE, CA)2023-05-19 11:43:34 Test Item Value Reference Range Interpretation Comments NA (test code = 135 mmol/L 135-145 2635235919) K (test code = 3.8 mmol/L 3.5-5.0 5579487157) CL (test code = 108 mmol/L 98-108 1183266620) CO2 TOTAL (test code = 22 mmol/L 23-31 L 3009456818) AGAP (test code = 5 2-16 0840510142) BUN (test code = 10 mg/dL 7-23 7030405238) GLUCOSE (test code = 94 mg/dL 70-110 7693523129) CREATININE (test code = 0.92 mg/dL 0.60-1.25 3522342603) CALCIUM (test code = 6.7 mg/dL 8.6-10.6 L 8564230373) eGFR (test code = 78.8 mL/min/1.73m2 9468191686) AFSHIN (test code = AFSHIN) Association of [...] tests). Lab Interpretation Abnormal (test code = 50978-7) [facility] 11:43:14 Test Item Value Reference Range Interpretation Comments PHOSPHORUS (test code = 5397244271) 2.3 mg/dL 2.5-5.0 L Lab Interpretation (test code = Abnormal 44607-3) [facility] Confirmation (Lab Only)2023-05-17 01:06:00 Test Item Value Reference Range Interpretation Comments ABO & RH (test code = 20) A Negative [facility] Confirmation (Lab Only)2023-05-17 01:06:00 Test Item Value Reference Range Interpretation Comments ABO & RH (test code = 20) A Negative [facility] [id number] 00:17:28 Test Item Value Reference Range Interpretation Comments TROPONIN I (test code = 0.006 ng/mL <=0.034 5073942423) AFSHIN (test code = AFSHIN) Reference (Normal) [...] biotin. Lab Interpretation Normal (test code = 95585-6) [facility] [id number] 00:17:28 Test Item Value Reference Range Interpretation Comments TROPONIN I (test code = 0.006 ng/mL <=0.034 3765766675) AFSHIN (test code = AFSHIN) Reference (Normal) [...] biotin. Lab Interpretation Normal (test code = 24093-6) [facility]AL [id number] 00:14:51 Test Item Value Reference Range Interpretation Comments NT-proBNP (test code = 147 pg/mL <=125 99945-7) AFSHIN (test code = AFSHIN) Result Indeterminate-Consid er causes of NT-proBNP elevation other than Heart failure such as acute coronary syndrome, pulmonary embolism, pulmonary hypertension, sepsis, stroke, and renal dysfunction. Lab Interpretation (test Abnormal code = 51387-4) [facility] [id number] 00:14:51 Test Item Value Reference Range Interpretation Comments NT-proBNP (test code = 147 pg/mL <=125 74171-3) AFSHIN (test code = AFSHIN) Result Indeterminate-Consid er causes of NT-proBNP elevation other than Heart failure such as acute coronary syndrome, pulmonary embolism, pulmonary hypertension, sepsis, stroke, and renal dysfunction. Lab Interpretation (test Abnormal code = 80613-8) [facility] THRMPLAS [id number] 00:12:49 Test Item Value Reference Range Interpretation Comments APTT Patient (test 27 See_Comment [Automat ed code = 3173-2) message] The system which generated this result transmitted reference range : 23 - 38 Seconds . The reference range was not used to interpr et this result as normal/abnormal . AFSHIN (test code = AFSHIN) The [facility] patient population mean normal value for aPTT is 30 seconds. Lab Interpretation Normal (test code = 00838-8) [facility] TH[facility] [id number] 00:12:49 Test Item Value Reference Range Interpretation Comments APTT Patient (test 27 See_Comment [Automat ed code = 3173-2) message] The system which generated this result transmitted reference range : 23 - 38 Seconds . The reference range was not used to interpr et this result as normal/abnormal . AFSHIN (test code = AFSHIN) The [facility] patient population mean normal value for aPTT is 30 seconds. Lab Interpretation Normal (test code = 33692-3) [facility] TIME / [id number] 00:10:47 Test Item Value Reference Range Interpretation Comments PROTIME PATIENT (test 13.5 See_Comment [Auto mated message] code = 5964-2) The system [employer] generated this result transmitted ref erence range: 12.0 - 1 4.7 Seconds. The re ference range was not u sed to interpret this result as normal/abnor mal. INR (test code = 6301-6) 1.1 Nor mal INR <1.1; Warfarin Therap eutic range 2.0 to 3. 0 or 2.5 to 3.5, dep ending upon the indica tions. Lab Interpretation (test Normal code = 23120-8) [facility] / [id number] 00:10:47 Test Item Value Reference Range Interpretation Comments PROTIME PATIENT (test 13.5 See_Comment [Auto mated message] code = 5964-2) The system [employer] generated this result transmitted ref erence range: 12.0 - 1 4.7 Seconds. The re ference range was not u sed to interpret this result as normal/abnor mal. INR (test code = 6301-6) 1.1 Nor mal INR <1.1; Warfarin Therap eutic range 2.0 to 3. 0 or 2.5 to 3.5, dep ending upon the indica tions. Lab Interpretation (test Normal code = 99653-5) [facility]. METABOLIC PANEL (54686)2023-05-17 00:07:09 Test Item Value Reference Range Interpretation Comments NA (test code = 138 mmol/L 135-145 3353436892) K (test code = 4.2 mmol/L 3.5-5.0 1409518341) CL (test code = 104 mmol/L 98-108 8888002768) CO2 TOTAL (test code = 25 mmol/L 23-31 3379307372) AGAP (test code = 9 2-16 6715817636) BUN (test code = 31 mg/dL 7-23 H 9092315865) GLUCOSE (test code = 110 mg/dL 70-110 5662409096) CREATININE (test code = 1.70 mg/dL 0.60-1.25 H 0548660290) TOTAL BILI (test code = 1.7 mg/dL 0.1-1.1 H 3688583472) CALCIUM (test code = 9.5 mg/dL 8.6-10.6 5878135805) T PROTEIN (test code = 7.0 g/dL 6.3-8.2 2405497958) ALBUMIN (test code = 3.9 g/dL 3.5-5.0 6935232378) ALK PHOS (test code = 74 U/L 34-122 8015446288) ALTv (test code = 15 U/L 5-50 1742-6) AST(SGOT) (test code = 21 U/L 13-40 3878978570) eGFR (test code = 38.8 mL/min/1.73m2 5882284618) AFSHIN (test code = AFSHIN) Association of [...] tests). Lab Interpretation Abnormal (test code = 51252-7) [facility]. METABOLIC PANEL (21532)2023-05-17 00:07:09 Test Item Value Reference Range Interpretation Comments NA (test code = 138 mmol/L 135-145 8500104653) K (test code = 4.2 mmol/L 3.5-5.0 1810817998) CL (test code = 104 mmol/L 98-108 2967934367) CO2 TOTAL (test code = 25 mmol/L 23-31 1442655199) AGAP (test code = 9 2-16 5776136229) BUN (test code = 31 mg/dL 7-23 H 1532330062) GLUCOSE (test code = 110 mg/dL 70-110 1737256198) CREATININE (test code = 1.70 mg/dL 0.60-1.25 H 3448095546) TOTAL BILI (test code = 1.7 mg/dL 0.1-1.1 H 3000790215) CALCIUM (test code = 9.5 mg/dL 8.6-10.6 6644547467) T PROTEIN (test code = 7.0 g/dL 6.3-8.2 0295135917) ALBUMIN (test code = 3.9 g/dL 3.5-5.0 1695177838) ALK PHOS (test code = 74 U/L 34-122 3268067373) ALTv (test code = 15 U/L 5-50 1742-6) AST(SGOT) (test code = 21 U/L 13-40 3943692366) eGFR (test code = 38.8 mL/min/1.73m2 4141801976) AFSHIN (test code = AFSHIN) Association of [...] tests). Lab Interpretation Abnormal (test code = 82279-8) [facility]23-[facility] 00:06:49 Test Item Value Reference Range Interpretation Comments LIPASE (test code = 0792026156) 104 U/L 0-220 Lab Interpretation (test code = Normal 55731-9) [facility]2023-08-22 00:06:49 Test Item Value Reference Range Interpretation Comments LIPASE (test code = 6524441257) 104 U/L 0-220 Lab Interpretation (test code = Normal 12456-4) [facility] WITH [id number] 23:49:07 Test Item Value Reference Range Interpretation Comments WBC (test code = 8.87 See_Comment [Automated 2158-2) message] The sy stem which generated this result transmitted reference range : 4.20 - 10.70 10*3/?L. The reference range was not used to interpret this result as normal/abnormal . RBC (test code = 4.94 See_Comment [Automated 054-7) message] The sy stem which generated this [...] RDW-SD (test code = 42.1 fL 38.5-51.6 38016-6) RDW-CV (test code = 13.2 % 12.1-15.4 788-0) PLT (test code = 315 See_Comment [Automated 777-3) message] The sy stem which generated this result transmitted reference range : 150 - 328 10*3/ ?L. The reference r rima was not used to interpret this result as normal/abnormal . MPV (test code = 8.6 fL 9.8-13.0 L 30934-0) NRBC/100 WBC (test 0.0 See_Comment [Automat ed code = 9617215034) message] The system which generated this result transmitted reference range : 0.0 - 10.0 /100 WBCs. The refer ence range was not u sed to interpret th is result as normal/abnormal . NRBC x10^3 (test code See_Comment [Auto mated = 0307884920) message] The s ystem which generated this result transmitted reference range : 10*3/?L. The reference range was not used to interpret this result as normal/abnormal . GRAN MAT (NEUT) % 64.9 % (test code = 770-8) IMM GRAN % (test code 0.30 % = 8338640294) LYMPH % (test code = 20.1 % 736-9) MONO % (test code = 10.0 % 5905-5) EOS % (test code = 3.0 % 713-8) BASO % (test code = 1.7 % 706-2) GRAN MAT x10^3(ANC) 5.75 10*3/uL 1.99-6.95 (test code = 8802867971) IMM GRAN x10^3 (test 0.03 10*3/uL 0.00-0.06 code = 2064931022) LYMPH x10^3 (test code 1.78 10*3/uL 1.09-3.23 = 731-0) MONO x10^3 (test code 0.89 10*3/uL 0.36-1.02 = 742-7) EOS x10^3 (test code = 0.27 10*3/uL 0.06-0.53 711-2) BASO x10^3 (test code 0.15 10*3/uL 0.01-0.09 H = 704-7) Lab Interpretation Abnormal (test code = 55541-4) [facility] WITH [id number] 23:49:07 Test Item Value Reference Range Interpretation Comments WBC (test code = 8.87 See_Comment [Automated 6640-2) message] The sy stem which generated this result transmitted reference range : 4.20 - 10.70 10*3/?L. The reference range was not used to interpret this result as normal/abnormal . RBC (test code = 4.94 See_Comment [Automated 314-8) message] The sy stem which generated this [...] RDW-SD (test code = 42.1 fL 38.5-51.6 23322-2) RDW-CV (test code = 13.2 % 12.1-15.4 788-0) PLT (test code = 315 See_Comment [Automated 088-3) message] The sy stem which generated this result transmitted reference range : 150 - 328 10*3/ ?L. The reference r rima was not used to interpret this result as normal/abnormal . MPV (test code = 8.6 fL 9.8-13.0 L 21331-0) NRBC/100 WBC (test 0.0 See_Comment [Automat ed code = 3100676107) message] The system which generated this result transmitted reference range : 0.0 - 10.0 /100 WBCs. The refer ence range was not u sed to interpret th is result as normal/abnormal . NRBC x10^3 (test code See_Comment [Auto mated = 1343841321) message] The s ystem which generated this result transmitted reference range : 10*3/?L. The reference range was not used to interpret this result as normal/abnormal . GRAN MAT (NEUT) % 64.9 % (test code = 770-8) IMM GRAN % (test code 0.30 % = 0436166939) LYMPH % (test code = 20.1 % 736-9) MONO % (test code = 10.0 % 5905-5) EOS % (test code = 3.0 % 713-8) BASO % (test code = 1.7 % 706-2) GRAN MAT x10^3(ANC) 5.75 10*3/uL 1.99-6.95 (test code = 3311780366) IMM GRAN x10^3 (test 0.03 10*3/uL 0.00-0.06 code = 4140959310) LYMPH x10^3 (test code 1.78 10*3/uL 1.09-3.23 = 731-0) MONO x10^3 (test code 0.89 10*3/uL 0.36-1.02 = 742-7) EOS x10^3 (test code = 0.27 10*3/uL 0.06-0.53 711-2) BASO x10^3 (test code 0.15 10*3/uL 0.01-0.09 H = 704-7) Lab Interpretation Abnormal (test code = 84797-0) [facility] + LACTIC [id number] 23:44:18 Test Item Value Reference Range Interpretation Comments PH (test code = 7.34 7.32-7.42 7106138546) PCO2 STARR (test code = 43 See_Comment [Auto mated 9134443044) message] The sy stem which generated this result transmitted reference range : 41 - 51 mmHg. The reference range was not used to interpret this result as normal/abnormal . PO2 STARR (test code = 27 See_Comment [Autom ated 1752535616) message] The sy stem which generated this result transmitted reference range : 25 - 40 mmHg. The reference range was not used to interpret this result as normal/abnormal . HCO3 STARR (test code = 23 See_Comment L [Auto mated 7340505917) message] The sy stem which generated this result transmitted reference range : 24 - 28 mEq/L. The reference range was not used to interpret this result as normal/abnormal . AC VBE(BEAKER) (test -3.0 mEq/L code = 9311265025) THB STARR (test code = 15.1 g/dL 13.5-18.0 0954416929) %O2HB STARR (test code = 47.9 % 52.0-63.0 L 4278096679) %COHB STARR (test code = 1.0 % 0.0-1.5 6386265554) %METHB STARR (test code = 0.3 % 0.4-1.5 L 0096468063) VOL%O2 STARR (test code = 10.1 % 6.0-12.0 5670482621) NA (test code = 137 mmol/L 135-145 3654566270) K+ (test code = 4.1 mmol/L 3.5-5.0 3205358185) AC CA IONZ (test code = 5.00 mg/dL 4.50-5.30 6969555449) GLUCOSE (test code = 105 mg/dL 70-110 3832972228) LACTIC ACID (test code 1.46 mmol/L 0.50-2.20 = 5243774953) Lab Interpretation Abnormal (test code = 23693-8) [facility] + LACTIC [id number] 23:44:18 Test Item Value Reference Range Interpretation Comments PH (test code = 7.34 7.32-7.42 8262353999) PCO2 STARR (test code = 43 See_Comment [Auto mated 2107613947) message] The sy stem which generated this result transmitted reference range : 41 - 51 mmHg. The reference range was not used to interpret this result as normal/abnormal . PO2 STARR (test code = 27 See_Comment [Autom ated 0235282019) message] The sy stem which generated this result transmitted reference range : 25 - 40 mmHg. The reference range was not used to interpret this result as normal/abnormal . HCO3 STARR (test code = 23 See_Comment L [Auto mated 2114933330) message] The sy stem which generated this result transmitted reference range : 24 - 28 mEq/L. The reference range was not used to interpret this result as normal/abnormal . AC VBE(BEAKER) (test -3.0 mEq/L code = 9134827620) THB STARR (test code = 15.1 g/dL 13.5-18.0 0036247529) %O2HB STARR (test code = 47.9 % 52.0-63.0 L 3298696001) %COHB STARR (test code = 1.0 % 0.0-1.5 2489691971) %METHB STARR (test code = 0.3 % 0.4-1.5 L 8453308344) VOL%O2 STARR (test code = 10.1 % 6.0-12.0 6002045909) NA (test code = 137 mmol/L 135-145 3368572809) K+ (test code = 4.1 mmol/L 3.5-5.0 5054703480) AC CA IONZ (test code = 5.00 mg/dL 4.50-5.30 1292445831) GLUCOSE (test code = 105 mg/dL 70-110 1569395681) LACTIC ACID (test code 1.46 mmol/L 0.50-2.20 = 8067279865) Lab Interpretation Abnormal (test code = 05776-2) [facility] - ONCE [id number] 23:44:00 Test Item Value Reference Range Interpretation Comments ABO & RH (test code = 20) A Negative IAT (test code = 1185) Negative [facility] [id number] 23:44:00 Test Item Value Reference Range Interpretation Comments ABO & RH (test code = 20) A Negative IAT (test code = 1185) Negative [facility] Consult Notes Date/Time Note Provider Source 2023-05-18 [id number]:07:07Associated Sary Johnson [facility] 11:07:07 Order(s): CONSULT FOOD AND NUTRITION MEDICAL [...] N/A 05/17/2023 Surgeon: Cholo Holm MD; Location: [facility] Current Medical Condition: per [...] would immediately vomit any attempted 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 Per SCIENTIFIC INFORMATICS ANALYST, pt is now tolerating chilled Ensure HP, [...] : Not assessed Quadriceps: Severe Interosseous: Moderate Anglican: Severe Shoulder: Moderate Pertinent Medications: protonix, magnesium [...] for >65 YO) %IBW: 71%Estimated Energy NeedsCalories: 7827-3310 kcal/day; 30-35 kcals/kg Current WeightProtein: 70-116 g/day, 1.2-2 g/kg Current WeightFluid: 0897-4349 ml/day (~1 ml/kcal) or per MD/Medical TeamCurrent Dietary Order(s): Ensure Clear (1 kcal/mL, 14% protein, no fat)Clear Liquid Diet; No jellos Food Sensitivity Modifiers: None.Ensure High Protein (0.7 kcal/mL, protein 41% of kcal) Food Allergies/Cultural or Amish Preferences: No Known AllergiesNUTRITION DIAGNOSIS:Nutrition Dx 1: [...] mixing Ensure with ice cream (ok per SCIENTIFIC INFORMATICS ANALYST)2. Depending on findings on mass biopsy, may [...] at this timeSary Johnson RD, LDClinical DietitianOffice 55011-8Lzpuecb lopcXS5463-26-23U89:49:02Consult noteTXT1.2.840.364862.1.13.104.2.7. 2.926416|[id number] for patient ctja37086-6Apvwzet [id number] [address] LjczNtilxihxrCjhrsfzlmQATY063680531 8IJBVBLDZNUGYRMTIBEQUHS3320-07-86U4 4:49:021.2.840.001364.1.72.3.15|1.2 .840.166378.1.13.104.2.7.2.727879_1 [id number] 2023-05-18 5282-76-53G95:24:55Associated Germaine Patino [facility] 10:24:55 Order(s): CONSULT SPEECHFormatting SCIENTIFIC INFORMATICS ANALYST of this note is different from the original.Speech-Language PathologyClinical Swallow Evaluation05/18/2023 Akosua Davenport : 1940 Age/Sex: 83 year old [...] mass. RL: 460 End of report. Previous SCIENTIFIC INFORMATICS ANALYST Services/Swallow History: Patient was seen for evaluation and treatment of oropharyngeal dysphagia 10/01/2019-10/03/2019. Patient was recommended regular-textured diet with thin liquids and swallow precautions: sit fully upright/chair and remain upright for 30 minutes after meals Past Medical History: Diagnosis Date HTN (hypertension) PAD (peripheral artery disease) Past Surgical History: Procedure Laterality Date ESOPHAGOGASTRODUODENOSCOPY N/A 05/17/2023 Surgeon: Cholo Holm MD; Location[place] [facility] [place] General Behavior: Alert, Calm, [...] verbally. Discussed findings of evaluation, recommendations and SCIENTIFIC INFORMATICS ANALYST plan of care. Patient/family verbalized understanding and is in agreement with plan of care. RN and referring provider notified of findings and recommendations.Patient/Family goal: to eat and drinkASSESSMENT/IMPRESSIONS: kAosua Davenport presents with findings of esophageal dysphagia [...] given blockage of solids seen on EGD3. SCIENTIFIC INFORMATICS ANALYST will continue to follow via chart review to determine further dysphagia interventions once biopsy results return.Germaine Patino MS, GUF-FVXInzmya-Kvnwuhjq [email or web address] coverage provided at multiple locations, please use the following numbers based on patient's location to contact this SCIENTIFIC INFORMATICS ANALYST:[place] Speech: [phone] (rehab department)[place] Speech: [phone] (main office)[place] Speech: [phone] ([place] office)If unable to reach SCIENTIFIC INFORMATICS ANALYST at these numbers, please text [phone] 21521-8Kwiamxd wxdsTW1896-16-92E18:22:19Consult noteTXT1.2.840.542608.1.13.104.2.7. 2.004434|[id number] for patient nxtj70441-0Tivvjzu vutcNS278683276Dujpzxrya Jamison [address] Yang [id number] 3EHKKAIAELKAJKTSAYBHLKX6126-33-26O4 1:22:191.2.840.782163.1.72.3.15|1.2 .840.169291.1.13.104.2.7.2.727879_1 [id number] 2023-05-17 4832-32-03E59:32:42Associated [facility] 06:32:42 Order(s): CONSULT GENERAL SURGERY General Surgery [...] evaluation withendoscopy. Diverticulosis without evidence of diverticulitis. Prostamegaly.Microbiology:NAAssess ent:This is Mr. Akosua Davenport, 83 y/o [...] this [place] [address]-8Abacegp logzBU1665370CbhbCholo1.2.840.187414.1.13.104.2.7 .2.427557PoetFfzbjpeuNH7127-02-72M5 3:03:53Consult noteTXT1.2.840.736249.1.13.104.2.7. 2.108450|[id number] for patient rvgx40201-2Ugezxtj noteLNUT51 Booker [id number] 0UHTCYOCLZHKZKKZKBOGFPG0994-37-85N7 3:03:531.2.840.497489.1.72.3.15|1.2 .840.940737.1.13.104.2.7.2.727879_1 [id number] History and Physical Notes Date/Time Note Provider Source 2023-05-17 08:15:36 7234-05-77K52:15:36Formatting of this note [facility] is different from the original.Medicine History & [...] endoscopy, further recs t follow DVT prophylaxis: [facility] Advanced Care Planning ( Z71.89 )Above assessment and plan discussed at length with patient, patient expressed full understanding. Questions and concerns addressed I spent 18 minutes discussing the advance care planning.Advanced Directive Maker: selfLevel of comfort: N/ACode Status: fullTobacco user (Z71.6)Patient counseled at length and Pt expressed full understanding, Time discussed 3 minutesDisposition: admit to inpt Signed:Jayce Vargas MD05/17/2023 59513-7Sdqunen and physical xtoaFL2017-79-68V40:18:38History and physical noteTXT1.2.840.149941.1.13.104.2.7.2.96029 9|[id number] for patient dctw94708-7Wwftlfx and physical noteLNUT[address] FvimOjphsvqaqUixqhwmgaMDZJ9978481849YBNVEW RAGPXVUOVAWXKYCU3614-34-15J21:18:381.2.840 .070925.1.72.3.15|1.2.840.078154.1.13.104. 2.7.2.727879_1879982483
[2023-08-08] MEDS ORDERED: ONDANSETRON 4 MG/2 ML VIAL ONE (16:17)
[2023-08-08 16:50] LABS: Absolute Lymphocytes (CBC) 1.5 K/uL (0.7-4.9); Lymphocytes % 11.9 % (15.3-44.8); MCV 86.8 fL (80-100); MPV 6.9 fL (7.6-11.3); Platelets 390 thou/uL (152-406); RBC Red Blood Cell Count 4.49 M/uL (4.33-5.43)
[2023-08-08 17:01] LABS: Albumin 2.3 g/dL (3.4-5.0); Bilirubin Total 1.4 mg/dL (0.2-1.0); Potassium 3.4 mEq/L (3.5-5.1); Protein, Total 6.4 g/dL (6.4-8.2)
--- NOTE | 2023-08-08 18:00 | RAD REPORT ---
EXAM DESCRIPTION: CT - Soft Tissue Neck W/Contr - 08/08/2023 5:28 pm CLINICAL HISTORY: Difficulty swallowing. Esophageal neoplasm COMPARISON: None. TECHNIQUE: Computed axial tomography of the neck was obtained. 100 cc Isovue 300 was administered i ntravenously. Coronal and sagittal reconstruction was performed. All CT scans are performed using dose optimization technique as appropriate and may include automated exposure control or mA/KV adjustment according to patient size. FINDINGS: The pharynx, tongue base, larynx and subglottic trachea appear unremarkable. The parotid, submandibular and thyroid glands appear unremarkable. No lymphadenopathy is seen within the neck No fluid within the sinuses/mastoids IMPRESSION: No significant abnormality displayed
--- NOTE | 2023-08-08 18:00 | RAD REPORT ---
EXAM DESCRIPTION: CT - Chest Abdomen Pelvis W Cont - 08/08/2023 5:28 pm CLINICAL HISTORY: Esophageal neoplasm. Vomiting COMPARISON: none TECHNIQUE: Computed axial tomography of the chest, abdomen and pelvis was obtained. 100 cc Isovue-30 0 was administered intravenously. Oral contrast was not requested. This limits evaluation of bowel. All CT scans are performed using dose optimization technique as appropriate and may include automated exposure control or mA/KV adjustment according to patient size. FINDINGS: 7 centimeter mass distal esophagus likely extends into the proximal stomach. The more prox imal esophagus is dilated and fluid-filled. Lymph nodes gastrohepatic ligament. The largest 2 centimeters No pleural effusion. No pericardial effusion. Marked COPD. Mild to moderate tree-in-bud opacities within the lungs bilaterally 3.7 x 1.7 centimeter necrotic lymph node right paratracheal middle mediastinum Hepatic and splenic granulomata. Pancreas, adrenals and kidneys are unremarkable No evidence of diverticulitis A moderate amount of stool is present throughout the colon. Rectum is mildly distended with stool IMPRESSION: 7 centimeters distal esophageal mass extends into the proximal stomach. The mass obstruc ts the esophagus Mediastinal and upper abdominal lymphadenopathy likely neoplastic Mild to moderate tree-in-bud opacities within the lungs probably aspiration pneumonitis
--- NOTE | 2023-08-08 18:12 | EDPHYS ---
Physician Documentation [facility] Name: Eriberto Feliciano Jr Age: 83 yrs Sex: Male : 1940 Arrival Date: 08/08/2023 Time: 15:43 Bed 17 Private MD: ED Physician Jeanmarie Alexander HPI: 08/08 15:48 This 83 yrs old Male presents to ER via Unassigned with complaints of vomiting and rn trouble swallowing. 15:48 The patient presents to the emergency department with vomiting. Onset: The rn symptoms/episode began/occurred 3 week(s) ago. Possible causes: Known esophageal cancer. The symptoms are aggravated by food , The symptoms are alleviated by nothing. Associated signs and symptoms: Pertinent positives: vomiting, Pertinent negatives: fever, GI bleeding. Severity of symptoms: At their worst the symptoms were moderate in the emergency department the symptoms are unchanged. The patient has experienced similar episodes in the past. The patient has not recently seen a physician. Patient reports about 3 weeks of not being able to keep anything down. Was able to drink water but now having trouble swallowing water over the last few days. jail states vomiting when tries to eat or drink. Has been told in the past that might need a feeding tube. No fever. No blood in emesis. No diarrhea.. Historical: - Allergies: 15:59 No Known Allergies; kc6 - PMHx: 15:59 diabetes mellitus; esophageal cancer; kc6 - Immunization history:: Adult Immunizations unknown. - Social history:: Smoking status: unknown. - Family history:: not pertinent. - Hospitalizations: : No recent hospitalization is reported. ROS: 15:48 Constitutional: Negative for fever, chills, and weight loss, Eyes: Negative for injury, rn pain, redness, and discharge, ENT: Positive for difficulty swallowing Neck: Negative for injury, pain, and swelling, Cardiovascular: Negative for chest pain, palpitations, and edema, Respiratory: Negative for shortness of breath, cough, wheezing, and pleuritic chest pain, Abdomen/GI: Positive for vomiting MS/Extremity: Negative for injury and deformity, Skin: Negative for injury, rash, and discoloration, Neuro: Negative for headache, weakness, numbness, tingling, and seizure, Exam: 15:51 Constitutional: Thin cachectic male, no acute distress Head/Face: Normocephalic, rn atraumatic. ENT: Dry mucous membranes, no stridor Neck: No external neck swelling or masses Cardiovascular: Regular rate and rhythm. No pulse deficits. Respiratory: No increased work of breathing, no retractions or nasal flaring. Abdomen/GI: Soft, non-tender, scaphoid abdomen MS/ Extremity: Pulses equal, no cyanosis. Neurovascular intact. Full, normal range of motion. Equal circumference. Neuro: Awake and alert, GCS 15 Vital Signs: 15:58 BP 124 / 80; Pulse 69; Resp 16 S; Temp 98.5(O); Pulse Ox 95% on R/A; Weight 57.61 kg kc6 (R); Height 5 ft. 11 in. (R); 17:01 Pulse 67; Resp 17 S; Pulse Ox 98% on R/A; kc6 17:54 BP 140 / 75; Pulse 73; Resp 18 S; Pulse Ox 99% on R/A; kc6 18:34 BP 141 / 87; Pulse 72; Resp 18 S; Pulse Ox 97% on R/A; kc6 19:10 BP 141 / 76; Pulse 71; Resp 18 S; Pulse Ox 98% on R/A; ha1 20:15 BP 147 / 77; Pulse 70; Resp 18 S; Pulse Ox 98% on R/A; ha1 15:58 Body Mass Index 17.71 (57.61 kg, 180.34 cm) kc6 MDM: 15:44 Patient medically screened. rn 18:08 Differential diagnosis: Esophageal obstruction, esophageal mass, renal failure, rn dehydration, aspiration. Data reviewed: vital signs, nurses notes, lab test result(s), radiologic studies, CT scan, and as a result, I will admit patient. Consideration of Admission/Observation Patient was admitted/placed on observation. Escalation of care including admission/observation considered. Independent interpretation of the following test(s) in the Emergency Department CT Scan: My interpretation is CT chest images show distal esophageal mass with liquid in the esophagus per my interpretation. Counseling: I had a detailed discussion with the patient and/or guardian regarding the historical points, exam findings, and any diagnostic results supporting the discharge/admit diagnosis, lab results, radiology results, the need to transfer to another facility, for higher level of care, [facility] does not immediately have the required specialist. Response to treatment: the patient's symptoms have mildly improved after treatment, and as a result, I will admit patient. ED course: Patient improved with IV fluids. CT shows complete esophageal obstruction due to esophageal mass with liquid contents in the esophagus. Also shows aspiration pneumonia. Antibiotics ordered being administered now. Will initiate transfer to [place] as patient is a [place] patient and prefers to be transferred there in addition we do not have GI or oncology here at this hospital.. 20:27 ED course: Patient accepted for transfer to [facility]. rn 08/08 15:46 Order name: CBC with Diff; Complete Time: 17:07 rn 08/08 15:46 Order name: CMP; Complete Time: 17:07 rn 08/08 15:46 Order name: Lipase; Complete Time: 17: rn 08/08 15:46 Order name: Magnesium; Complete Time: 17:07 rn 08/08 15:46 Order name: CT Soft Tissue Neck W/contr; Complete Time: 18:01 rn 08/08 17:07 Order name: CT Chest, Abdomen, Pelvis - W/Contrast; Complete Time: 18:01 rn 08/08 15:46 Order name: IV Saline Lock; Complete Time: 16:18 rn 08/08 15:46 Order name: Labs collected and sent; Complete Time: 16:18 rn 08/08 18:08 Order name: NPO; Complete Time: 18:14 rn Administered Medications: 16:18 Drug: NS 0.9% IV 1000 ml IV at 1 bolus Per protocol; 1000 mL bolus Route: IV; Rate: 1 kc6 bolus; Site: right antecubital; 18:34 Follow up: Response: No adverse reaction; IV Status: Completed infusion; IV Intake: kc6 1000ml 17:26 Not Given (Patient Refused): ondansetron 4 mg IVP once; over 2 minutes kc6 18:14 Drug: Piperacillin-Tazobactam IVPB 3.375 grams IVPB once over 60 mins; (mix in NS 100 kc6 mL) Route: IVPB; Infused Over: 60 mins; Site: right antecubital; 18:26 Drug: D5-1/2 NS with KCl IV 20 mEq/L 1000 ml IV at 100 ml/hr continuous Route: IV; kc6 Rate: 100 ml/hr; Site: right antecubital; Disposition Summary: 08/08/23 18:11 Transfer Ordered Notes: Transfer Location: [place] rn Reason: Higher level of care rn Condition: Stable rn Problem: an ongoing problem rn Symptoms: have improved rn Accepting Physician: (08/08/23 22:37) flo Diagnosis - Aspiration Pneumonia rn - Esophageal obstruction rn Forms: - Medication Reconciliation Form rn - SBAR form rn Signatures: Dispatcher [employer] EDME Jeanmarie Alexander MD MD rn Ayala, Heidy RN RN ha1 Lauren Isaac RN RN kc6 Corrections: (The following items were deleted from the chart) 17:11 15:46 Abdomen Pelvis W Con+CT.RAD.BRZ ordered. EDME EDME 22:37 18:11 rn ha1
--- NOTE | 2023-08-08 18:12 | ER ---
Nurse's Notes [facility] Name: Eriberto Feliciano Jr Age: 83 yrs Sex: Male : 1940 Arrival Date: 08/08/2023 Time: 15:43 Bed 17 Private MD: Diagnosis: Aspiration Pneumonia;Esophageal obstruction Presentation: 08/08 15:58 Chief complaint: EMS states: pt is from [facility]. he has been having n/v x3 weeks, kc6 no tolerating anything PO. denies abdominal pain pr diarrhea. Coronavirus screen: At this time, the client does not indicate any symptoms associated with coronavirus-19. Ebola Screen: No symptoms or risks identified at this time. Initial Sepsis Screen: Does the patient meet any 2 criteria? No. Patient's initial sepsis screen is negative. Does the patient have a suspected source of infection? No. Patient's initial sepsis screen is negative. Risk Assessment: Do you want to hurt yourself or someone else? Patient reports no desire to harm self or others. Onset of symptoms was August 08, 2023. 15:58 Method Of Arrival: EMS: [facility] 15:58 Acuity: EMMANUELLE 3 kc6 Triage Assessment: 15:59 General: Appears in no apparent distress. comfortable, slender, unkempt, Behavior is kc6 calm, cooperative, appropriate for age. Pain: Denies pain. EENT: No signs and/or symptoms were reported regarding the EENT system. Neuro: Level of Consciousness is awake, alert, obeys commands, Oriented to person, place, time, situation, Appropriate for age. Cardiovascular: Capillary refill < 3 seconds. Respiratory: Airway is patent Trachea midline Respiratory effort is even, unlabored, Respiratory pattern is regular, symmetrical. GI: Reports nausea, vomiting, Patient currently denies abdominal pain, diarrhea. : No signs and/or symptoms were reported regarding the genitourinary system. Derm: Skin is pink, warm \T\ dry. Wound noted buttocks and left foot, right and left knees. Musculoskeletal: No signs and/or symptoms reported regarding the musculoskeletal system. Circulation, motion, and sensation intact. Capillary refill < 3 seconds, Range of motion: intact in all extremities. Historical: - Allergies: 15:59 No Known Allergies; kc6 - PMHx: 15:59 diabetes mellitus; esophageal cancer; kc6 - Immunization history:: Adult Immunizations unknown. - Social history:: Smoking status: unknown. - Family history:: not pertinent. - Hospitalizations: : No recent hospitalization is reported. Screenin:01 [facility] ED Fall Risk Assessment (Adult) History of falling in the last 3 months, kc6 including since admission No falls in past 3 months (0 pts) Confusion or Disorientation No (0 pts) Intoxicated or Sedated No (0 pts) Impaired Gait Yes (1 pt) Mobility Assist Device Used Yes (1 pt) Altered Elimination No (0 pt) Score/Fall Risk Level 0 - 2 = Low Risk. Abuse screen: Denies threats or abuse. Denies injuries from another. Nutritional screening: Has had N/V for 3 or more days. Tuberculosis screening: No symptoms or risk factors identified. Assessment: 16:01 Reassessment: please see triage assessment. kc 17:01 Reassessment: Patient appears in no apparent distress at this time. No changes from [facility] previously documented assessment. Patient and/or family updated on plan of care and expected duration. Pain level reassessed. Patient is alert, oriented x 3, equal unlabored respirations, skin warm/dry/pink. 17:54 Reassessment: Patient appears in no apparent distress at this time. No changes from [facility] previously documented assessment. Patient and/or family updated on plan of care and expected duration. Pain level reassessed. Patient is alert, oriented x 3, equal unlabored respirations, skin warm/dry/pink. 18:34 Reassessment: Patient appears in no apparent distress at this time. No changes from [facility] previously documented assessment. Patient and/or family updated on plan of care and expected duration. Pain level reassessed. Patient is alert, oriented x 3, equal unlabored respirations, skin warm/dry/pink. 19:10 General: Appears comfortable, Behavior is calm, cooperative. Pain: Complains of pain in ha1 throat Pain does not radiate. Pain currently is 3 out of 10 on a pain scale. Quality of pain is described as burning, Pain began gradually. Neuro: Level of Consciousness is awake, alert, obeys commands, Oriented to person, place, time, situation. Cardiovascular: Capillary refill < 3 seconds. Respiratory: Airway is patent Respiratory effort is even, unlabored, Respiratory pattern is regular, symmetrical. GI: Abdomen is flat, non-distended, Reports nausea, vomiting. EENT: Reports difficulty swallowing. Musculoskeletal: Circulation, motion, and sensation intact. 21:15 Reassessment: Patient and/or family updated on plan of care and expected duration. Pain ha1 level reassessed. Patient is alert, oriented x 3, equal unlabored respirations, skin warm/dry/pink. 22:15 Reassessment: Patient and/or family updated on plan of care and expected duration. Pain ha1 level reassessed. Patient is alert, oriented x 3, equal unlabored respirations, skin warm/dry/pink. 22:20 Reassessment: attempted to give report. waited on phone for 5 munutes. ha1 22:45 Reassessment: report given to DHARA LEWIS. 1 Vital Signs: 15:58 BP 124 / 80; Pulse 69; Resp 16 S; Temp 98.5(O); Pulse Ox 95% on R/A; Weight 57.61 kg kc6 (R); Height 5 ft. 11 in. (R); 17:01 Pulse 67; Resp 17 S; Pulse Ox 98% on R/A; kc6 17:54 BP 140 / 75; Pulse 73; Resp 18 S; Pulse Ox 99% on R/A; kc6 18:34 BP 141 / 87; Pulse 72; Resp 18 S; Pulse Ox 97% on R/A; kc6 19:10 BP 141 / 76; Pulse 71; Resp 18 S; Pulse Ox 98% on R/A; ha1 20:15 BP 147 / 77; Pulse 70; Resp 18 S; Pulse Ox 98% on R/A; ha1 15:58 Body Mass Index 17.71 (57.61 kg, 180.34 cm) 6 ED Course: 15:44 Patient arrived in ED. rn 15:44 Jeanmarie Alexander MD is Attending Physician. rn 15:58 Lauren Isaac RN is Primary Nurse. [facility] 15:59 Triage completed. [facility] 15:59 Arm band placed on. kc6 16:01 Patient has correct armband on for positive identification. Placed in gown. Bed in low kc6 position. Call light in reach. Side rails up X2. Client placed on continuous cardiac and pulse oximetry monitoring. NIBP monitoring applied. 16:19 Inserted saline lock: 20 gauge in right antecubital area, using aseptic technique. kc6 Blood collected. Patient maintains SpO2 saturation greater than 95% on room air. 17:28 CT Soft Tissue Neck W/contr In Process Unspecified. EDMS 17:29 CT Chest, Abdomen, Pelvis - W/Contrast In Process Unspecified. EDMS 18:20 initiated transfer to [facility], spoke with Augustine, faxed copy of the chart to ER bd as requested by Augustine. Administered Medications: 16:18 Drug: NS 0.9% IV 1000 ml IV at 1 bolus Per protocol; 1000 mL bolus Route: IV; Rate: 1 kc6 bolus; Site: right antecubital; 18:34 Follow up: Response: No adverse reaction; IV Status: Completed infusion; IV Intake: kc6 1000ml 17:26 Not Given (Patient Refused): ondansetron 4 mg IVP once; over 2 minutes kc6 18:14 Drug: Piperacillin-Tazobactam IVPB 3.375 grams IVPB once over 60 mins; (mix in NS 100 kc6 mL) Route: IVPB; Infused Over: 60 mins; Site: right antecubital; 18:26 Drug: D5-1/2 NS with KCl IV 20 mEq/L 1000 ml IV at 100 ml/hr continuous Route: IV; kc6 Rate: 100 ml/hr; Site: right antecubital; Intake: 18:34 IV: 1000ml; Total: 1000ml. kc6 Outcome: 18:11 ER care complete, transfer ordered by . rn 22:37 Patient left the ED. ha1 Signatures: Dispatcher [employer] EDMS Lisha Pope Roman, MD MD rn Ayala, Heidy, RN RN ha1 Lauren Isaac RN RN kc6
[2023-08-08] MEDS ORDERED: NA CHLORIDE 0.9% 100 ML ONE (18:20)
[2023-08-08 23:38] VITALS: TEMP 98.5
[2023-08-08 23:42] VITALS: O2SAT 98
[2023-08-08 23:44] VITALS: BP 147/77
== END 2023-08-08 22:37 ==
LOC: ER 15:43
DX: J69.0 Pneumonitis due to inhalation of food and vomit (principal); K22.2 Esophageal obstruction; C15.9 Malignant neoplasm of esophagus, unspecified; E11.9 Type 2 diabetes mellitus without complications
CPT/HCPCS: 96361; 85025; 36415; 83735; 83690; 80053; 71260; 70491; 74177; 96374; 99285; Q9967; J2405